=== PATIENT | female | born 1995 ===

== ENCOUNTER 2020-07-09 06:16 | Emergency (ER) | payer OTHER, SELFPAY ==
--- NOTE | 2020-07-09 | CT_ITS ---
EXAMINATION: CT OF THE ABDOMEN AND PELVIS WITH IV CONTRAST CLINICAL INFORMATION: Left lower quadrant pain COMPARISON: Previous CT April 2020 TECHNIQUE: Axial images through the chest, abdomen and pelvis following oral and 85 mL Omnipaque 350 intravenous contrast. Sagittal and coronal reconstructions on the technologist workstation were performed. Patient dose 100 1 mg/cm. This CT examination was performed using dose optimization techniques as appropriate, variously including the following: *Automated exposure control *Adjustment of mA and/or kV according to patient size (this includes techniques or standardized protocols for targeted exams where dose is matched to indication/reason for exam; i.e. extremities or head) *Use of iterative reconstruction technique FINDINGS: The lung bases are clear. The liver is slightly low in attenuation suggestive of fatty infiltration. No focal liver lesion. Normal gallbladder. No biliary duct dilatation. Normal spleen, pancreas and adrenal glands. High attenuation in the bilateral collecting systems likely representing excreted contrast from test injection. This lowers the sensitivity for detecting a stone. No definite stone seen. No hydronephrosis. Normal bladder. Normal uterus and ovaries. There is diverticulosis of the left colon. There is wall thickening of the left colon and stranding of the surrounding fat. This is slightly longer segment distribution and more proximal compared to recent exam from April 2020. There are small adjacent pericolic lymph nodes. No evidence of obstruction, perforation or abscess is seen. Small and large bowel is otherwise unremarkable. The appendix is unremarkable. Small retroperitoneal lymph nodes. No ascites. No hernia. Normal vascular structures. Unremarkable bone structures. IMPRESSION: Diverticulosis. Long segment wall thickening of the left colon and stranding of the surrounding fat and small pericolic lymph nodes. This probably represents left colon diverticulitis. Long segment distribution raises the question of colitis as well. No evidence of obstruction, perforation or abscess.
[2020-07-09 06:33] VITALS: BP 133/91; PULSE 98; RESP 18; TEMP 36.4; BMI 44.2
--- NOTE | 2020-07-09 06:55 | ED.ABDPAIN ---
HPI - Abdominal Pain General Chief Complaint: Abdominal Pain Stated Complaint: LOWER ABD PAIN Time Seen by Provider: 07/09/20 06:55 Source: patient Mode of arrival: ambulatory Limitations: no limitations History of Present Illness MD elicited complaint: abdominal pain Onset (ago): day(s) (last night) Pain Consistency: constant Location: LLQ and suprapubic Severity: moderate Quality: cramping Exacerbating factors: nothing Relieving factors: nothing Associated symptoms: denies other symptoms Related Data Previous Rx's Medication Instructions Recorded amoxicillin-pot clavulanate 1 tab PO Q12H #14 tab 07/09/20 [Augmentin] hydrocodone-acetaminophen 1 tab PO Q8H PRN #10 tab 07/09/20 ondansetron 4 mg PO Q8H PRN 5 Days #20 tab 07/09/20 Allergies Allergy/AdvReac Type Severity Reaction Status Date / Time No Known Allergies Allergy Unverified 06/25/20 16:35 [No Known Allergies*] Review of Systems Review of Systems Constitutional : No Weight loss, No Fever, No Chills ENT: no runny nose, no sore throat Eyes: No Eye Pain, No Swelling, No Redness Cardiovascular : No Chest Pain, No SOB, No Dyspnea on Exertion, No Orthopnea, No Edema, No Palpitations Respiratory : No Cough, No Sputum, No Wheezing, No Smoke Exposure, No Dyspnea Gastrointestinal : no Nausea, no Vomiting, no Diarrhea, positive abdominal Pain, No Hematochezia, No Melena Genitourinary : No Dysuria, No Urinary Frequency, No Hematuria, Musculoskeletal : No joint pain, No Myalgias, No Joint Swelling Skin : No Skin Lesions, No rash Neuro : No Weakness, No Numbness, No Dizziness, No Headache Psych : No Anxiety/Panic, No Depression Heme/Lymph: No Bruising, No Bleeding,No Lymphadenopathy Endocrine : No Polyuria, No Polydipsia Physical Exam Vital Signs and I&O and Narrative: Vital Signs and I&O: Vital Signs Temp 98.6 F 07/09/20 06:56 Pulse 81 07/09/20 08:03 Resp 16 07/09/20 08:03 BP 138/87 07/09/20 08:03 Pulse Ox 96 07/09/20 08:03 Intake & Output 07/08/20 07/09/20 07/09/20 18:59 06:59 18:59 Intake Total 1000 / 1000 Balance 1000 / 1000 Weight 113.398 kg Intake: Intake, IV Amoun t 1000 / 1000 0.9 % Sodium C hloride 1,000 ml 1000 / 1000 @ 999 mls/hr I VCONT .Q1H1M [facility] Rx#:[id number] Body Mass Index 44.2 Const: General: cooperative and healthy appearing; No in distress Nutritional Appearance: average body habitus Orientation/consciousness: oriented to person and oriented to time HENMT: Head: Yes normal to inspection Face and sinus: Yes normal facial exam Mouth: Normal oral and palatal mucosa present Eyes: Eyelids: Yes eyelids normal Pupils: Equal, round and reactive pupils present Neck: Neck: Yes normal visual inspection Resp: Effort & Inspection: normal respiratory effort Auscultation: clear to auscultation bilaterally Cardio: Rate: regular rate Rhythm: regular rhythm Peripheral pulses: Peripheral pulses 2+ throughout GI: Inspection: Yes normal to inspection Palpation (GI): Soft to palpation and Tenderness to palpation present (GI) in the LLQ and suprapubicly; with no rebound tenderness Skin: General skin exam: no rashes or lesions noted Neuro: General: oriented to person and oriented to time Cranial nerves: Yes Equal, round and reactive pupils present and Yes Bilaterally intact EOM present Motor exam (neuro): 5/5 motor strength present throughout Sensory Exam: Normal double simultaneous stimulation for sensation Extrem: General: Yes normal to inspection and Yes no pedal edema Psych: Appearance: grossly normal Mental Status: mental status grossly normal Speech and movement: Normal speech and movement present Course Course Hospital Course: not toxic, no vomiting she has mild diverticulitis can be managed as outpatient with PO antibiotics MDM - Abdominal Pain MDM Narrative Medical decision making narrative: pateint with LLQ and suprapubic pain since last night but no other associated GI symptoms will need labs, IVF, IV Toradol for pain, denies concern for , CT scan for mass/diverticulitis, dispo per results and improvement Lab Data Result diagrams: 07/09/20 07:31 07/09/20 07:31 Labs: Lab Results 07/09/20 07/09/20 07/09/20 Range/Units 07:20 07:31 07:31 WBC 11.8 H (4.8-10.8) X10*3/uL RBC 4.97 (4.20-5.50) X10*6/uL Hgb 12.9 (12.0-16.0) g/dl Hct 40.7 (37-47) % MCV 81.9 (80-98) fL MCH 26.0 L (27.0-33.0) pg MCHC 31.7 (31.0-35.0) g/dl RDW 14.3 (11.0-16.0) % Plt Count 355 (160-400) X10*3/uL MPV 9.8 (9.4-12.3) fL Immature Gran % (Auto) 0.3 (0.0-0.4) % Neut % (Auto) 68.2 (45-73) % Lymph % (Auto) 24.2 (20-40) % [place] % (Auto) 6.1 (2-11) % Eos % (Auto) 0.9 (0-4) % Baso % (Auto) 0.3 (0-2) % Neut # (Auto) 8.0 (2.0-8.3) X10*3/uL Lymph # (Auto) 2.8 (1.2-4.9) X10*3/uL [place] # (Auto) 0.7 (0.1-1.2) X10*3/uL Eos # (Auto) 0.1 (0.0-0.4) X10*3/uL Baso # (Auto) 0.0 (0.0-0.2) X10*3/uL Abs Immat Gran (auto) 0.04 H (0.00-0.03) X10*3/uL Absolute Nucleated RBC 0.000 (0.0-0.012) X10*3/uL Nucleated RBC % (auto) 0.0 (0.0-0.2) /100WBC Sodium 139 (135-145) mmol/L Potassium 4.2 (3.3-5.1) mmol/l Chloride 105 (96-108) mmol/L Carbon Dioxide 26 (22-29) mmol/L Anion Gap 12 (12-20) BUN 10 (9-16) mg/dL Creatinine 0.74 (0.5-1.4) mg/dL Estim Creat Clear Calc 142.1 Estimated GFR > 60 Random Glucose 101 (60-115) mg/dL Calcium 8.8 (8.4-10.2) mg/dL Total Bilirubin 0.2 (0.0-1.0) mg/dL Direct Bilirubin < 0.2 (0.0-0.5) mg/dL AST 18 (5-31) U/L ALT 20 (0-31) U/L Alkaline Phosphatase 104 (39-117) U/L Total Protein 7.0 (6.5-8.0) g/dL Albumin 3.9 (3.5-5.0) g/dL Lipase 23 (8-78) U/L Urine Color YELLOW Urine Appearance HAZY Urine pH 6.0 (5.0-8.0) Ur Specific [place] 1.025 (1.005-1.025) Urine Protein NEG (NEG-TRACE) MG/DL Urine Glucose (UA) NEG (NEG) MG/DL Urine Ketones NEG (NEG) MG/DL Urine Blood NEG (NEG) Urine Nitrite NEG (NEG) Ur Leukocyte Esterase NEG (NEG) Urine Test NEGATIVE (NEGATIVE) Discharge Plan Discharge Clinical Impression: Diverticulitis Patient Disposition: Home, Self-Care Prescriptions: New amoxicillin-pot clavulanate [Augmentin] 875-125 mg tablet 1 tab PO Q12H Qty: 14 RF: 0 ondansetron 4 mg tablet,disintegrating 4 mg PO Q8H PRN (Reason: nausea and vomiting) 5 Days Qty: 20 RF: 0 hydrocodone-acetaminophen 5-325 mg tablet 1 tab PO Q8H PRN (Reason: pain) Qty: 10 RF: 0 Referrals: Physician,Unknown [Primary Care Provider] - 2 days (you will need a colonoscopy in 4 to 6 weeks call your doctor) Stand Alone Forms: Work/School Release [facility] Past Medical History Attestation statement: The following information was validated with the patient. Medical History (Updated 07/09/20 @ 10:38 by Deb Barber DO) Diverticulitis No known health problems Social History Social History Smoking Status: Never smoker Smoked in Last 30 Days: No Use of substances other than those prescribed or required for medical reasons: No Advance Directives: No Advance Directives Information Provided: No
[2020-07-09 06:56] VITALS: BP 138/98; PULSE 92; RESP 18; TEMP 37; O2SAT 94
[2020-07-09] MEDS: 0.9 % Sodium Chloride 1,000 ML 999 ML IVCONT (07:34)
[2020-07-09 07:37] LABS: MANUAL DIFF FLAG NO
[2020-07-09 07:38] LABS: Basophils Percent Auto 0.3 % (0-2); Eosinophils Absolute Auto 0.1 X10*3/uL (0.0-0.4); Eosinophils Percent Auto 0.9 % (0-4); Hematocrit 40.7 % (37-47); Hemoglobin 12.9 g/dl (12.0-16.0); Imm Gran Abs Auto 0.04 X10*3/uL (0.00-0.03); Imm Gran Pct Auto 0.3 % (0.0-0.4); Lymphocytes Absolute Auto 2.8 X10*3/uL (1.2-4.9); Lymphocytes Percent Auto 24.2 % (20-40); Mean Corpuscular HGB Conc 31.7 g/dl (31.0-35.0); Mean Corpuscular Volume 81.9 fL (80-98); Mean Platelet Volume 9.8 fL (9.4-12.3); Monocytes Absolute Auto 0.7 X10*3/uL (0.1-1.2); Monocytes Percent Auto 6.1 % (2-11); Neutrophils Percent Auto 68.2 % (45-73); Platelet Count 355 X10*3/uL (160-400); Red Blood Count 4.97 X10*6/uL (4.20-5.50); Red Cell Distribution Width 14.3 % (11.0-16.0); White Blood Count 11.8 X10*3/uL (4.8-10.8)
[2020-07-09] MEDS: Ketorolac Tromethamine 30 MG/ML VIAL IVPUSH (07:41)
[2020-07-09 07:42] LABS: Glucose Urine UA NEG (NEG); Leukocyte Esterase Urine NEG (NEG); Nitrite Urine NEG (NEG); Specific Gravity - Urine 1.025 (1.005-1.025); Urine Blood NEG (NEG); Urine Ketones NEG (NEG); Urine Protein NEG (NEG-TRACE)
[2020-07-09] MEDS: ondansetron HCL 4 MG/2 ML VIAL IVPUSH (07:42)
[2020-07-09 07:46] LABS: Appearance Urine HAZY; Color Urine YELLOW
[2020-07-09 07:49] LABS: UPreg QC Valid YES; Urine Pregnancy NEGATIVE (NEGATIVE)
[2020-07-09 08:03] VITALS: BP 138/87; PULSE 81; RESP 16; O2SAT 96
[2020-07-09 08:05] LABS: Alanine Aminotransferase 20 U/L (0-31); Albumin Level 3.9 g/dL (3.5-5.0); Alkaline Phosphatase 104 U/L (39-117); Anion Gap 12 (12-20); Aspartate Amino Transferase 18 U/L (5-31); Bilirubin Direct < 0.2 mg/dL (0.0-0.5); Bilirubin Total 0.2 mg/dL (0.0-1.0); Blood Urea Nitrogen 10 mg/dL (9-16); Calcium 8.8 mg/dL (8.4-10.2); Carbon Dioxide 26 mmol/L (22-29); Chloride 105 mmol/L (96-108); Creatinine Clr Calc Pharmacy 142.1; Estimated Glomerular Filt Rate > 60; Glucose Random 101 mg/dL (60-115); Lipase 23 U/L (8-78); Potassium 4.2 mmol/l (3.3-5.1); Sodium 139 mmol/L (135-145)
--- NOTE | 2020-07-09 09:18 | PC.NURSE ---
pt ambulated to CT Scan with steady gait with low voltage technician.
[2020-07-09] MEDS: iohexoL 350 MG/ML 100 ML INFUS..BTL IV (10:26)
[2020-07-09 11:26] VITALS: BP 129/78; PULSE 94; O2SAT 97
== END 2020-07-09 11:40 | disposition home or self-care (01) ==
PROVIDERS: Emergency Provider Emergency Medicine
DX: K57.92 Diverticulitis of intestine, part unspecified, without perforation or abscess without bleeding (principal)
CPT/HCPCS: 36415; 74177; 80048; 80076; 81003; 81025; 83690; 85025; 96361; 96374; 96375; 99284

== ENCOUNTER 2021-07-30 12:21 | Inpatient (IN) | payer OTHER, SELFPAY ==
--- NOTE | ~2021-07-30 | CT_ITS ---
CT/CT abdomen pelvis w con IMPRESSION: Acute diverticulitis involving the distal descending and proximal sigmoid colon with large amount of inflammatory change seen within the mesentery with the appearance of phlegmon and no definite drainable abscess collection at this time. There is a small amount of free fluid seen about the abdomen and pelvis. EXAMINATION: CT ABDOMEN AND PELVIS WITH CONTRAST CLINICAL INFORMATION: Severe abdominal pain radiating to flanks with nausea. COMPARISON: July 09, 2020 and April 30, 2020 TECHNIQUE: Multidetector volumetric images were obtained from the superior aspect of the liver through the pubic symphysis following administration 85 mL of Omnipaque 350 intravenous contrast. Sagittal and coronal reformatted images were obtained on the technologist's workstation. Oral contrast: No This CT examination was performed using dose optimization techniques as appropriate, variously including the following: *Automated exposure control *Adjustment of mA and/or kV according to patient size (this includes techniques or standardized protocols for targeted exams where dose is matched to indication/reason for exam; i.e. extremities or head) *Use of iterative reconstruction technique DLP: 1002 mGy-cm FINDINGS: LUNG BASES: The visualized lung bases are unremarkable. No pleural or pericardial effusion. LIVER, GALLBLADDER, AND BILIARY TREE: There is some diminished density along the falciform ligament consistent with fatty infiltration. No focal mass or intrahepatic bile duct dilatation is seen. The gallbladder is unremarkable with no evidence of radiopaque gallstones, gallbladder wall thickening, or obvious pericholecystic inflammatory changes. PANCREAS: Unremarkable. SPLEEN: Unremarkable. ADRENAL GLANDS: Unremarkable. KIDNEYS AND URETERS: The kidneys are normal in size, shape, and attenuation. No calculi seen. There is prominence of the collecting systems left greater than right without hydroureter. No perinephric stranding. BLADDER: Unremarkable. GASTROINTESTINAL TRACT: No dilated loops of large or small bowel are evident. No free air is seen. There is small amount of free fluid seen within the pelvis. Small amount of free fluid is seen within the mid abdomen. The appendix is visualized and appears unremarkable. There is a region of disease within the sigmoid and distal descending colon with wall thickening and large amount of pericolonic stranding and indistinctness of the colonic wall in this region consistent with acute diverticulitis. There is a large amount of inflammation within the fat seen extending superiorly with the appearance of phlegmon involving multiple loops of small bowel and no definite drainable collection or air fluid collection. The inflammatory streaking is seen to extend throughout a large portion of the mesentery. ABDOMINAL WALL: No significant hernia is appreciated. LYMPH NODES: There are numerous nonenlarged mesenteric and periaortic lymph nodes present. VASCULAR: Unremarkable. PELVIC VISCERA: No abnormal mass. Small amount of free fluid. OSSEOUS STRUCTURES: Unremarkable.
[2021-07-30 14:42] VITALS: BP 149/90; PULSE 68; RESP 18; TEMP 36.6; O2SAT 98
--- NOTE | 2021-07-30 14:48 | ED.ABDPAIN ---
HPI - Abdominal Pain General Chief Complaint: Abdominal Pain Stated Complaint: abd & flank pain Time Seen by Provider: 07/30/21 14:40 Source: patient Mode of arrival: ambulatory Limitations: no limitations History of Present Illness HPI narrative: 26-year-old female with a history of diverticulosis, diverticulitis 07/2020, kidney stones who presents to the ER with acute onset of severe 9/10 sharp epigastric pain that radiates down into her lower abdomen and into her bilateral flanks. She reports his pain started around 630 this morning and has progressively gotten worse throughout the day. She is nauseous but has not vomited. She reports her last bowel movement was yesterday and was normal. She has had no fever or chills. She has no urinary symptoms. She denies chance of . She states this feels different than her prior episode of diverticulitis. MD elicited complaint: abdominal pain Pertinent past history: diverticulitis and kidney stones Onset (ago): hour(s) (9) Pain Consistency: constant Location: epigastric Severity: severe Pain scale (0-10): 9 Quality: sharp Radiation: LLQ and RLQ Migration to: periumbilical Exacerbating factors: nothing Relieving factors: nothing Context: history of similar episodes Associated symptoms: nausea Related Data Patient : No Home Medications Medication Instructions Recorded Confirmed levonorgestrel-ethinyl estradiol 1 tab PO BEDTIME 05/18/21 0.1 mg-20 mcg tablet (Sronyx) dicyclomine 10 mg capsule 1 cap PO BID PRN 07/30/21 Previous Rx's Medication Instructions Recorded ondansetron 4 mg disintegrating 4 mg PO Q8H PRN 5 Days #20 tab 07/09/20 tablet amoxicillin 875 mg-potassium 1 tab PO BID #20 tab 05/18/21 clavulanate 125 mg tablet (Augmentin) ibuprofen 600 mg tablet 600 mg PO Q8H PRN #10 tab 07/30/21 Allergies Allergy/AdvReac Type Severity Reaction Status Date / Time No Known Allergies Allergy Unverified 06/25/20 16:35 [No Known Allergies*] Review of Systems Review of Systems Constitutional: No Fever, No Chills ENT/Mouth: No sore throat, No Rhinorrhea, No Swallowing Difficulty Eyes: No Eye Pain, No Swelling, No Redness Cardiovascular: No Chest Pain, No SOB, No Orthopnea, No Edema Respiratory: No Cough, No Sputum, No Wheezing, No dyspnea Gastrointestinal: + Nausea, No Vomiting, No Diarrhea, + abdominal Pain, No Hematochezia, No Melena Genitourinary: No Dysuria, No Urinary Frequency, No Hematuria Musculoskeletal: No joint pain, No Myalgias Skin: No Skin Lesions, No rash Neuro: No Weakness, No Numbness, No Dizziness, No Headache Psych: No Anxiety/Panic, No Depression Heme/Lymph: No Bruising, No Lymphadenopathy Endocrine: No Polyuria, No Polydipsia Physical Exam Vital Signs: Vital Signs: Last Vital Signs Temp 98.8 F 07/30/21 17:58 Pulse 79 07/30/21 17:58 Resp 16 07/30/21 17:58 BP 124/78 07/30/21 17:58 Pulse Ox 99 07/30/21 17:58 Body Mass Index 42.5 Appearance: Alert. Oriented X3. Appears to be in pain Eyes: Pupils equal, round and reactive to light. ENT: Pharynx normal. Neck: Normal inspection. Neck supple. CVS: Normal heart rate and rhythm. Pulses normal. Respiratory: No respiratory distress. Breath sounds normal. Abdomen: Obese, soft with tenderness to epigastric area, periumbilical area and LLQ, +guarding, no rebound, decreased+BS x4 Skin: Skin warm and dry. Normal skin color. Normal skin turgor. No rashes. Extremities: No lower extremity edema. Neuro: Oriented X 3. No motor deficit. No sensory deficit. Course Course Course Narrative: 26-year-old female with history of diverticulitis and kidney stones presents to the ER with severe 9/10 sharp abdominal pain that radiates throughout her whole abdomen into her bilateral flanks. She is finally stable on arrival slightly hypertensive and appears to be in pain. She is nontoxic appearing and afebrile. Will proceed with checking lab workup, urinalysis, and get CT scan for further evaluation. IV fluids in IV morphine ordered as well as IV Zofran. Reevaluation(s) Reevaluation #1: But blood cell count 13.1. Her pain is significantly improved after [address] scan is pending at this time. Reevaluation #2: CT scan is showing acute diverticulitis and proximal sigmoid colon with large amount of inflammatory changes, consistent with appearance of phlegmon. No drainable abscess at this time. She has a small amount of free fluid in the abdomen and pelvis. Given the CT scan findings will plan to give a dose of IV antibiotics and have her admitted for further evaluation and management. Patient reports this is her 6th episode of diverticulitis. She had a colonoscopy in the past and has been seen by GI in [facility]. She report no one ever spoke to her about surgery or resection before. Will plan to admit. Patient agreeable with plan. Reevaluation #3: Dr. Pruitt from Surgery consulted - recommending NPO, IVF, IV abx. Elective outpatient colonoscopy and possible resection once better. Consultations Consultation #1: Surgery - Dr. Humphrey [facility] - Abdominal Pain Lab Data Result diagrams: 07/30/21 14:53 07/30/21 14:53 Labs: Lab Results 07/30/21 07/30/21 07/30/21 Range/Units 14:53 14:53 14:53 WBC 13.1 H (4.8-10.8) X10*3/uL RBC 4.97 (4.20-5.50) X10*6/uL Hgb 12.7 (12.0-16.0) g/dl Hct 40.2 (37-47) % MCV 80.9 (80-98) fL MCH 25.6 L (27.0-33.0) pg MCHC 31.6 (31.0-35.0) g/dl RDW 14.2 (11.0-16.0) % Plt Count 435 H (160-400) X10*3/uL MPV 9.9 (9.4-12.3) fL Immature Gran % (Auto) 0.3 (0.0-0.4) % Neut % (Auto) 78.7 H (45-73) % Lymph % (Auto) 16.4 L (20-40) % [place] % (Auto) 4.2 (2-11) % Eos % (Auto) 0.2 (0-4) % Baso % (Auto) 0.2 (0-2) % Lymph # (Auto) 2.2 (1.2-4.9) X10*3/uL [place] # (Auto) 0.6 (0.1-1.2) X10*3/uL Eos # (Auto) 0.0 (0.0-0.4) X10*3/uL Baso # (Auto) 0.0 (0.0-0.2) X10*3/uL Abs Immat Gran (auto) 0.04 H (0.00-0.03) X10*3/uL Absolute Neuts (auto) 10.3 H (2.0-8.3) X10*3/uL Absolute Nucleated RBC 0.000 (0.0-0.012) X10*3/uL Nucleated RBC % (auto) 0.0 (0.0-0.2) /100WBC Sodium 141 (135-145) mmol/L Potassium 4.0 (3.3-5.1) mmol/L Chloride 105 (96-108) mmol/L Carbon Dioxide 24 (22-29) mmol/L Anion Gap 16 (12-20) BUN 7 L (9-16) mg/dL Creatinine 0.78 (0.5-1.4) mg/dL Estim Creat Clear Calc TNP Estimated GFR > 60 Random Glucose 81 (60-115) mg/dL Lactic Acid 1.0 (0.5-2.0) mmol/L Calcium 9.2 (8.4-10.2) mg/dL Magnesium 1.8 (1.6-2.6) mg/dL Total Bilirubin 0.3 (0.0-1.0) mg/dL Direct Bilirubin < 0.2 (0.0-0.5) mg/dL AST 16 (5-31) U/L ALT 15 (0-31) U/L Alkaline Phosphatase 88 (39-117) U/L Total Protein 7.7 (6.5-8.0) g/dL Albumin 4.1 (3.5-5.0) g/dL Lipase 16 (8-78) U/L Urine Color Urine Appearance Urine pH (5.0-8.0) Ur Specific [place] (1.005-1.025) Urine Protein (NEG-TRACE) MG/DL Urine Glucose (UA) (NEG) MG/DL Urine Ketones (NEG) MG/DL Urine Blood (NEG) Urine Nitrite (NEG) Ur Leukocyte Esterase (NEG) Urine Test (NEGATIVE) COVID-19 (JESSIKA) (Negative) COVID-19 Clin Com 07/30/21 07/30/21 07/30/21 Range/Units 14:53 14:53 14:53 WBC (4.8-10.8) X10*3/uL RBC (4.20-5.50) X10*6/uL Hgb (12.0-16.0) g/dl Hct (37-47) % MCV (80-98) fL MCH (27.0-33.0) pg MCHC (31.0-35.0) g/dl RDW (11.0-16.0) % Plt Count (160-400) X10*3/uL MPV (9.4-12.3) fL Immature Gran % (Auto) (0.0-0.4) % Neut % (Auto) (45-73) % Lymph % (Auto) (20-40) % [place] % (Auto) (2-11) % Eos % (Auto) (0-4) % Baso % (Auto) (0-2) % Lymph # (Auto) (1.2-4.9) X10*3/uL [place] # (Auto) (0.1-1.2) X10*3/uL Eos # (Auto) (0.0-0.4) X10*3/uL Baso # (Auto) (0.0-0.2) X10*3/uL Abs Immat Gran (auto) (0.00-0.03) X10*3/uL Absolute Neuts (auto) (2.0-8.3) X10*3/uL Absolute Nucleated RBC (0.0-0.012) X10*3/uL Nucleated RBC % (auto) (0.0-0.2) /100WBC Sodium (135-145) mmol/L Potassium (3.3-5.1) mmol/L Chloride (96-108) mmol/L Carbon Dioxide (22-29) mmol/L Anion Gap (12-20) BUN (9-16) mg/dL Creatinine (0.5-1.4) mg/dL Estim Creat Clear Calc Estimated GFR Random Glucose (60-115) mg/dL Lactic Acid (0.5-2.0) mmol/L Calcium (8.4-10.2) mg/dL Magnesium (1.6-2.6) mg/dL Total Bilirubin (0.0-1.0) mg/dL Direct Bilirubin (0.0-0.5) mg/dL AST (5-31) U/L ALT (0-31) U/L Alkaline Phosphatase (39-117) U/L Total Protein (6.5-8.0) g/dL Albumin (3.5-5.0) g/dL Lipase (8-78) U/L Urine Color YELLOW Urine Appearance HAZY Urine pH 5.5 (5.0-8.0) Ur Specific [place] >= 1.030 H (1.005-1.025) Urine Protein NEG (NEG-TRACE) MG/DL Urine Glucose (UA) NEG (NEG) MG/DL Urine Ketones 15 (NEG) MG/DL Urine Blood NEG (NEG) Urine Nitrite NEG (NEG) Ur Leukocyte Esterase NEG (NEG) Urine Test NEGATIVE (NEGATIVE) COVID-19 (JESSIKA) Negative (Negative) COVID-19 Clin Com See Note Critical Care Time Critical Care Time Critical Care Time: Yes Total Critical Care Time: 38 Attestation: I have personally provided critical care time exclusive of time spent on separately billable procedures. Time includes review of lab data, radiology results, discussion with consultants, and monitoring for potential decompensation. Intervention performed as documented. Discharge Plan Discharge Clinical Impression: Diverticulitis Patient Disposition: Admitted As Inpatient [facility] Past Medical History Medical History (Updated 07/30/21 @ 17:27 by ELIZABETH Sarabia) Diverticulitis No known health problems Social History Social History Advance Directives: No Patient : No
[2021-07-30] MEDS: ondansetron HCL 4 MG/2 ML VIAL IVPUSH (14:59)
[2021-07-30] MEDS: 0.9 % Sodium Chloride 1,000 ML 999 ML IVCONT ×2 (14:59→17:55)
[2021-07-30] MEDS: Morphine Sulfate 4 MG/ML CARTRIDGE IVPUSH (15:00)
[2021-07-30 15:01] LABS: Basophils Percent Auto 0.2 % (0-2); Eosinophils Percent Auto 0.2 % (0-4); Hematocrit 40.2 % (37-47); Hemoglobin 12.7 g/dl (12.0-16.0); Imm Gran Abs Auto 0.04 X10*3/uL (0.00-0.03); Imm Gran Pct Auto 0.3 % (0.0-0.4); Lymphocytes Absolute Auto 2.2 X10*3/uL (1.2-4.9); Lymphocytes Percent Auto 16.4 % (20-40); MANUAL DIFF FLAG NO; Mean Corpuscular HGB Conc 31.6 g/dl (31.0-35.0); Mean Corpuscular Hemoglobin 25.6 pg (27.0-33.0); Mean Corpuscular Volume 80.9 fL (80-98); Mean Platelet Volume 9.9 fL (9.4-12.3); Monocytes Absolute Auto 0.6 X10*3/uL (0.1-1.2); Monocytes Percent Auto 4.2 % (2-11); Neutrophils Absolute Auto 10.3 X10*3/uL (2.0-8.3); Neutrophils Percent Auto 78.7 % (45-73); Platelet Count 435 X10*3/uL (160-400); Red Blood Count 4.97 X10*6/uL (4.20-5.50); Red Cell Distribution Width 14.2 % (11.0-16.0); White Blood Count 13.1 X10*3/uL (4.8-10.8)
[2021-07-30 15:02] LABS: Appearance Urine HAZY; Color Urine YELLOW; Glucose Urine UA NEG (NEG); Leukocyte Esterase Urine NEG (NEG); Nitrite Urine NEG (NEG); PH 5.5 (5.0-8.0); Specific Gravity - Urine >= 1.030 (1.005-1.025); Urine Blood NEG (NEG); Urine Ketones 15 MG/DL (NEG); Urine Protein NEG (NEG-TRACE)
[2021-07-30 15:03] LABS: UPreg QC Valid YES; Urine Pregnancy NEGATIVE (NEGATIVE)
[2021-07-30 15:16] LABS: COVID-19 Test Negative (Negative); IDNOW Serial# 9DD0AD1C
[2021-07-30 15:19] LABS: Alanine Aminotransferase 15 U/L (0-31); Albumin Level 4.1 g/dL (3.5-5.0); Alkaline Phosphatase 88 U/L (39-117); Anion Gap 16 (12-20); Aspartate Amino Transferase 16 U/L (5-31); Bilirubin Direct < 0.2 mg/dL (0.0-0.5); Bilirubin Total 0.3 mg/dL (0.0-1.0); Blood Urea Nitrogen 7 mg/dL (9-16); Calcium 9.2 mg/dL (8.4-10.2); Carbon Dioxide 24 mmol/L (22-29); Chloride 105 mmol/L (96-108); Estimated Glomerular Filt Rate > 60; Glucose Random 81 mg/dL (60-115); Lipase 16 U/L (8-78); Magnesium 1.8 mg/dL (1.6-2.6); Sodium 141 mmol/L (135-145); Total Protein 7.7 g/dL (6.5-8.0)
[2021-07-30] MEDS: iohexoL 350 MG/ML 100 ML INFUS..BTL IV (16:01)
[2021-07-30 17:41] VITALS: BMI 42.5
[2021-07-30] MEDS: metroNIDAZOLE/NS 500 MG/100 ML PIGGYBACK 100 MG IV (17:53)
[2021-07-30 17:58] VITALS: BP 124/78; PULSE 79; RESP 16; TEMP 37.1; O2SAT 99
--- NOTE | 2021-07-30 18:03 | P.HPHOSP_ITS ---
History of Present Illness Date of Service: 07/30/21 Attending physician on admission: Clem Armendariz Chief Complaint: abd pain 26-year-old female of diverticulosis, who has multiple episode of diverticulitis in past 1 and half year at least 5-6 time-coming to the hospital because of abdominal pain today, also has nausea. She says that the last episode of diverticulitis was 2-3 weeks back when she called her PCP and was given p.o. antibiotic outpatient and she felt better. This time she is having significant pain and she end the hospital. In the emergency room patient was given, morphine levaquin,flagyl and subsequently ED physician discussed the case with surgery and recommended to admit patient for IV antibiotics and surgical evaluation in the morning. Denies any new complaint of chest pain or shortness of breath or fever or chills or nausea or vomiting Denies any cough Denies any weakness or numbness. Labs imaging reviewed: Patient has WBC count of 13.1, nofever or tachypnea Renal function electrolytes seems normal, LFTs also normal, normal lactic acid. CT abdomen: Shows distal descending/proximal sigmoid colon diverticulitis/phlegmon appearance. No free air or drainable abscess at present. Social history: Denies any smoking, recreation drug use or alcohol use. Review of Systems Review of Systems: As above. Yes all other systems are reviewed and are negative [facility] Medical History Diverticulitis No known health problems Pertinent family history: Her father has hypertension, no history of div erticulitis in the family. Social History Advance Directives: No Patient : No Meds Allergies Allergy/AdvReac Type Severity Reaction Status Date / Time No Known Allergies Allergy Unverified 06/25/20 16:35 [No Known Allergies*] Active Medications: Current Medications Levofloxacin (Levaquin) 750 mg in 150 mls @ 100 mls/hr IV ONCE ONE Stop: 07/30/21 19:07 Metronidazole (Flagyl) 500 mg in 100 mls @ 100 mls/hr IV ONCE ONE Stop: 07/30/21 18:37 Last Admin: 07/30/21 17:53 Dose: 100 mls/hr Documented by: Sodium Chloride (Ns) 1,000 mls @ 999 mls/hr IVCONT .Q1H1M [facility] Stop: 07/30/21 18:45 Last Admin: 07/30/21 17:55 Dose: 999 mls/hr Documented by: Levofloxacin (Levaquin) 750 mg in 150 mls @ 100 mls/hr IV Q24H [facility] Metronidazole (Flagyl) 500 mg in 100 mls @ 100 mls/hr IV Q8H [facility] Pharmacy Consult (Consult Rx Perform Med Rec) 1 each MISCELLANE ONCE PRN PRN Reason: Consult order Sodium Chloride (0.9 % Sodium Chloride Flush 3 Ml Syringe) 3 ml IVFLUSH QSHIFT [facility] Home Medications Medication Instructions Recorded Confirmed Last Taken Type levonorgestrel-ethinyl estradiol 1 tab PO BEDTIME 05/18/21 07/30/21 07/29/21 History 0.1 mg-20 mcg tablet (Sronyx) dicyclomine 10 mg capsule 1 cap PO BID PRN 07/30/21 07/30/21 Unknown History psyllium husk 0.52 gram capsule 3.4 g PO DAILY 07/30/21 07/30/21 Unknown History (Fiber Laxative (psyllium husk)) Physical Exam Vital Signs and Narrative: Vital Signs: Last Vital Signs Temp 98.8 F 07/30/21 17:58 Pulse 79 07/30/21 17:58 Resp 16 07/30/21 17:58 BP 124/78 07/30/21 17:58 Pulse Ox 99 07/30/21 17:58 Body Mass Index 42.5 Physical exam: Appearance: Alert.? Oriented X3.? not in distress.? Eyes: Pupils equal, round and reactive to light.? Sclera nonicteric.? ENT: Pharynx normal.? Moist mucous membranes. cvs: rrr, [id number] , no murmur res: clear to auscultation ,no rhonchii or wheezing abd: no rebound or guarding , left lower quadrent tenderness , bs present. ext pulses present , no cyanosis ,Gait well balanced well coordinated. neuro: axo3 , nonfocal. Results Labs CBC and Chem 7: 07/30/21 14:53 07/30/21 14:53 Labs: Laboratory Results - last 24 hr 07/30/21 07/30/21 07/30/21 14:53 14:53 14:53 MCV 80.9 MCH 25.6 L MCHC 31.6 RDW 14.2 Plt Count 435 H MPV 9.9 Immature Gran % (Auto) 0.3 Neut % (Auto) 78.7 H Lymph % (Auto) 16.4 L [place] % (Auto) 4.2 Eos % (Auto) 0.2 Baso % (Auto) 0.2 Lymph # (Auto) 2.2 [place] # (Auto) 0.6 Eos # (Auto) 0.0 Baso # (Auto) 0.0 Abs Immat Gran (auto) 0.04 H Absolute Neuts (auto) 10.3 H Absolute Nucleated RBC 0.000 Nucleated RBC % (auto) 0.0 Anion Gap 16 Estim Creat Clear Calc TNP Estimated GFR > 60 Random Glucose 81 Lactic Acid 1.0 Calcium 9.2 Magnesium 1.8 Total Bilirubin 0.3 Direct Bilirubin < 0.2 AST 16 ALT 15 Alkaline Phosphatase 88 Total Protein 7.7 Albumin 4.1 Lipase 16 Urine Color Urine Appearance Urine pH Ur Specific [place] Urine Protein Urine Glucose (UA) Urine Ketones Urine Blood Urine Nitrite Ur Leukocyte Esterase Urine Test COVID-19 (JESSIKA) COVID-19 Clin Com 07/30/21 07/30/21 07/30/21 14:53 14:53 14:53 MCV MCH MCHC RDW Plt Count MPV Immature Gran % (Auto) Neut % (Auto) Lymph % (Auto) [place] % (Auto) Eos % (Auto) Baso % (Auto) Lymph # (Auto) [place] # (Auto) Eos # (Auto) Baso # (Auto) Abs Immat Gran (auto) Absolute Neuts (auto) Absolute Nucleated RBC Nucleated RBC % (auto) Anion Gap Estim Creat Clear Calc Estimated GFR Random Glucose Lactic Acid Calcium Magnesium Total Bilirubin Direct Bilirubin AST ALT Alkaline Phosphatase Total Protein Albumin Lipase Urine Color YELLOW Urine Appearance HAZY Urine pH 5.5 Ur Specific [place] >= 1.030 H Urine Protein NEG Urine Glucose (UA) NEG Urine Ketones 15 Urine Blood NEG Urine Nitrite NEG Ur Leukocyte Esterase NEG Urine Test NEGATIVE COVID-19 (JESSIKA) Negative COVID-19 Clin Com See Note Imaging Radiologist's Impressions: Impressions Abdomen/Pelvis CT 07/30/21 14:47 IMPRESSION: Acute diverticulitis involving the distal descending and proximal sigmoid colon with large amount of inflammatory change seen within the mesentery with the appearance of phlegmon and no definite drainable abscess collection at this time. There is a small amount of free fluid seen about the abdomen and pelvis. Assessment and Plan (1) Diverticulitis: Status: Acute (2) Phlegmon: Status: Acute (3) Morbid obesity: Status: Acute 1. Acute diverticulitis/phlegmon NPO, IV hydration, bowel rest, IV Levaquin and Flagyl day 1 Surgery evaluation 2. Morbid obesity: Encouraged to lose weight and consider outpatient bariatric evaluation. DVT prophylaxis: SubQ Lovenox. Patient condition discussed with patient in detail length including acute diverticulitis and phlegmon situation , use of IV antibiotic and hydration and bowel rest at present as well as morbid obesity and code status: Total time spent 70 minutes Quality Stroke Does the patient have a stroke diagnosis?: No VTE Prior VTE?: No VTE Risk Level:: Medical - moderate - high VTE Device Contraindication: N/A - Device Ordered VTE Drug Contraindication: N/A - Med Ordered
--- NOTE | 2021-07-30 18:12 | PHA.MEDREC ---
Pharmacy Consult ? Medication Reconciliation Pharmacy has completed the medication reconciliation.
[2021-07-30] MEDS: Enoxaparin Sodium 40 MG/0.4 ML SYRINGE SUBCUT (19:15)
[2021-07-30] MEDS: levoFLOXacin/D5W 750 MG/150 ML PIGGYBACK 100 MG IV (19:15)
[2021-07-30] MEDS: Lactated Ringers 1,000 ML 80 ML IVCONT (19:16)
--- NOTE | 2021-07-30 20:32 | MHC.CM.PN ---
CM met with admitted patient with bed assignment 380. A&Ox3. Independent. Lives with her parents. Fully vaccinated with Pfizer. No HCP on file. HCP reviewed, completed and signed. Copies given and uploaded into [employer] and [facility] [employer]. HCP/mother Isis Coates ([phone]). D/C plan is home without services. Transportation home by parents. CM to follow for d/c needs.
[2021-07-30 20:34] VITALS: BP 141/84; PULSE 87; RESP 18; TEMP 36.6; O2SAT 94
[2021-07-30 23:44] VITALS: BP 133/71; PULSE 82; RESP 16; TEMP 36.4; O2SAT 96
[2021-07-31 03:20] VITALS: BP 134/82; PULSE 73; RESP 18; TEMP 37.1; O2SAT 92
[2021-07-31] MEDS: Morphine Sulfate 2 MG/ML CARTRIDGE IVPUSH ×2 (03:24→12:55)
[2021-07-31] MEDS: metroNIDAZOLE/NS 500 MG/100 ML PIGGYBACK 100 MG IV ×3 (03:24→18:06)
[2021-07-31 06:15] LABS: Hematocrit 36.5 % (37-47); Hemoglobin 11.5 g/dl (12.0-16.0); Mean Corpuscular HGB Conc 31.5 g/dl (31.0-35.0); Mean Corpuscular Hemoglobin 25.3 pg (27.0-33.0); Mean Corpuscular Volume 80.2 fL (80-98); Platelet Count 372 X10*3/uL (160-400); Red Blood Count 4.55 X10*6/uL (4.20-5.50); Red Cell Distribution Width 14.1 % (11.0-16.0); White Blood Count 9.7 X10*3/uL (4.8-10.8)
[2021-07-31] MEDS: Lactated Ringers 1,000 ML 80 ML IVCONT (06:29)
[2021-07-31 06:59] LABS: Anion Gap 11 (12-20); Blood Urea Nitrogen 6 mg/dL (9-16); Calcium 8.9 mg/dL (8.4-10.2); Carbon Dioxide 26 mmol/L (22-29); Chloride 103 mmol/L (96-108); Creatinine Clr Calc Pharmacy 137.5; Estimated Glomerular Filt Rate > 60; Glucose Random 78 mg/dL (60-115); Potassium 3.8 mmol/L (3.3-5.1); Sodium 136 mmol/L (135-145)
[2021-07-31 07:47] VITALS: BP 118/68; PULSE 94; RESP 17; TEMP 36.7; O2SAT 98
[2021-07-31] MEDS: Enoxaparin Sodium 40 MG/0.4 ML SYRINGE SUBCUT (09:34)
--- NOTE | 2021-07-31 10:03 | HO.PM.IMPN ---
Subjective Subjective Date of Service: 07/31/21 Interval History: Diverticulitis Review of Systems abd pain seems slightly improving Denies any new complaint of chest pain or shortness of breath or fever or chills or nausea or vomiting Denies any cough Denies any weakness or numbness. Physical Exam Vital Signs: Vital Signs: Last Vital Signs Temp 98.1 F 07/31/21 07:47 Pulse 94 07/31/21 07:47 Resp 17 07/31/21 07:47 BP 118/68 07/31/21 07:47 Pulse Ox 98 07/31/21 07:47 Body Mass Index 42.5 Appearance: Alert.? Oriented X3.? not in distress.? Eyes: Pupils equal, round and reactive to light.? Sclera nonicteric.? ENT: Pharynx normal.? Moist mucous membranes. cvs: rrr, [id number] , no murmur res: clear to auscultation ,no rhonchii or wheezing abd: no rebound or guarding , left lower quadrent tenderness , bs present. ext pulses present , no cyanosis ,Gait well balanced well coordinated. neuro: axo3 , nonfocal. Objective Data Active Medications Enoxaparin Sodium (Enoxaparin Sodium 40 Mg/0.4 Ml Syringe) 40 mg SUBCUT DAILY [facility] Last Admin: 07/31/21 09:34 Dose: 40 mg Documented by: COTEMA Levofloxacin (Levaquin) 750 mg in 150 mls @ 100 mls/hr IV Q24H [facility] Metronidazole (Flagyl) 500 mg in 100 mls @ 100 mls/hr IV Q8H [facility] Last Admin: 07/31/21 09:35 Dose: 100 mls/hr Documented by: COTEMA Lactated Ringer's (Lr) 1,000 mls @ 80 mls/hr IVCONT .[id number] [facility] Last Admin: 07/31/21 06:29 Dose: 80 mls/hr Documented by: TRI Morphine Sulfate (Morphine Sulfate 2 Mg/Ml Cartridge) 2 mg IVPUSH Q4H PRN; Protocol PRN Reason: Pain, Mild (Pain Scale 1-3) Last Admin: 07/31/21 03:24 Dose: 2 mg Documented by: TRI Pharmacy Consult (Consult Rx Perform Med Rec) 1 each MISCELLANE ONCE PRN PRN Reason: Consult order Sodium Chloride (0.9 % Sodium Chloride Flush 3 Ml Syringe) 3 ml IVFLUSH QSHIFT [facility] Last Admin: 07/31/21 07:07 Dose: Not Given Documented by: VELMA Non-Admin Reason: IV Running Labs CBC & Chem 7: 07/31/21 06:02 07/31/21 06:02 Labs: Laboratory Results - last 24 hr 07/30/21 07/30/21 07/30/21 14:53 14:53 14:53 MCV 80.9 MCH 25.6 L MCHC 31.6 RDW 14.2 Plt Count 435 H MPV 9.9 Immature Gran % (Auto) 0.3 Neut % (Auto) 78.7 H Lymph % (Auto) 16.4 L [place] % (Auto) 4.2 Eos % (Auto) 0.2 Baso % (Auto) 0.2 Lymph # (Auto) 2.2 [place] # (Auto) 0.6 Eos # (Auto) 0.0 Baso # (Auto) 0.0 Abs Immat Gran (auto) 0.04 H Absolute Neuts (auto) 10.3 H Absolute Nucleated RBC 0.000 Nucleated RBC % (auto) 0.0 Anion Gap 16 Estim Creat Clear Calc TNP Estimated GFR > 60 Random Glucose 81 Lactic Acid 1.0 Calcium 9.2 Magnesium 1.8 Total Bilirubin 0.3 Direct Bilirubin < 0.2 AST 16 ALT 15 Alkaline Phosphatase 88 Total Protein 7.7 Albumin 4.1 Lipase 16 Urine Color Urine Appearance Urine pH Ur Specific [place] Urine Protein Urine Glucose (UA) Urine Ketones Urine Blood Urine Nitrite Ur Leukocyte Esterase Urine Test COVID-19 (JESSIKA) COVID-19 Clin Com 07/30/21 07/30/21 07/30/21 14:53 14:53 14:53 MCV MCH MCHC RDW Plt Count MPV Immature Gran % (Auto) Neut % (Auto) Lymph % (Auto) [place] % (Auto) Eos % (Auto) Baso % (Auto) Lymph # (Auto) [place] # (Auto) Eos # (Auto) Baso # (Auto) Abs Immat Gran (auto) Absolute Neuts (auto) Absolute Nucleated RBC Nucleated RBC % (auto) Anion Gap Estim Creat Clear Calc Estimated GFR Random Glucose Lactic Acid Calcium Magnesium Total Bilirubin Direct Bilirubin AST ALT Alkaline Phosphatase Total Protein Albumin Lipase Urine Color YELLOW Urine Appearance HAZY Urine pH 5.5 Ur Specific [place] >= 1.030 H Urine Protein NEG Urine Glucose (UA) NEG Urine Ketones 15 Urine Blood NEG Urine Nitrite NEG Ur Leukocyte Esterase NEG Urine Test NEGATIVE COVID-19 (JESSIKA) Negative COVID-19 Clin Com See Note 07/31/21 07/31/21 06:02 06:02 MCV 80.2 MCH 25.3 L MCHC 31.5 RDW 14.1 Plt Count 372 MPV 10.0 Immature Gran % (Auto) Neut % (Auto) Lymph % (Auto) [place] % (Auto) Eos % (Auto) Baso % (Auto) Lymph # (Auto) [place] # (Auto) Eos # (Auto) Baso # (Auto) Abs Immat Gran (auto) Absolute Neuts (auto) Absolute Nucleated RBC 0.000 Nucleated RBC % (auto) 0.0 Anion Gap 11 L Estim Creat Clear Calc 137.5 Estimated GFR > 60 Random Glucose 78 Lactic Acid Calcium 8.9 Magnesium Total Bilirubin Direct Bilirubin AST ALT Alkaline Phosphatase Total Protein Albumin Lipase Urine Color Urine Appearance Urine pH Ur Specific [place] Urine Protein Urine Glucose (UA) Urine Ketones Urine Blood Urine Nitrite Ur Leukocyte Esterase Urine Test COVID-19 (JESSIKA) COVID-19 Clin Com Assessment and Plan (1) Diverticulitis: Status: Acute (2) Phlegmon: Status: Acute (3) Morbid obesity: Status: Acute Assessment and Plan: ?1. Acute diverticulitis/phlegmon NPO, IV hydration, try to add clears, IV Levaquin and Flagyl day 2, iv morhine for pain control(moniter for sedation/respiratory issues). Surgery evaluation 2. Morbid obesity:? Encouraged to lose weight and consider outpatient bariatric evaluation. DVT prophylaxis:? SubQ Lovenox. Quality Stroke Does the patient have a stroke diagnosis?: No VTE Prior VTE?: No VTE Risk Level:: Medical - moderate - high VTE Device Contraindication: N/A - Device Ordered VTE Drug Contraindication: N/A - Med Ordered
[2021-07-31 11:39] VITALS: BP 125/71; PULSE 83; RESP 17; TEMP 36.5; O2SAT 99
--- NOTE | 2021-07-31 13:31 | PM.CNGS ---
History of Present Illness Consult details Consult date: 07/31/21 Reason for consult: abdominal pain Requesting physician: Clem Armendariz Narrative: The pt is a 26 year old female admitted with abdominal pain and diverticulitis with large phlegmon in the sigmoid left colon area. she has had numerous attacks in the last year and last year had a a CT scan which supported that diagnosis as well. She says she had a colonoscopy earlier this year maybe at [facility]. she denies being told she has crohsn or UC no family history. she has been trying to stay regular and not be constipated and doesnt think this has been a problem recently. Review of Systems Review of Systems: Yes all other systems are reviewed and are negative PMFSH Past Medical History Medical History Diverticulitis No known health problems Functional capacity: independent ambulation Patient : No Family History Pertinent family history: no IBD or diverticulosis Social History Social History Household Members: Family Housing: House Do you presently have visiting nurse or other home services: No Patient Tobacco Use Status: Never used Tobacco service: No Current occupational status: employed Meds Allergies Allergy/AdvReac Type Severity Reaction Status Date / Time No Known Allergies Allergy Unverified 06/25/20 16:35 [No Known Allergies*] Active Medications: Current Medications Enoxaparin Sodium (Enoxaparin Sodium 40 Mg/0.4 Ml Syringe) 40 mg SUBCUT DAILY [facility] Last Admin: 07/31/21 09:34 Dose: 40 mg Documented by: Levofloxacin (Levaquin) 750 mg in 150 mls @ 100 mls/hr IV Q24H [facility] Metronidazole (Flagyl) 500 mg in 100 mls @ 100 mls/hr IV Q8H [facility] Last Infusion: 07/31/21 10:38 Dose: Infused Documented by: Lactated Ringer's (Lr) 1,000 mls @ 80 mls/hr IVCONT .[id number] [facility] Last Admin: 07/31/21 06:29 Dose: 80 mls/hr Documented by: Morphine Sulfate (Morphine Sulfate 2 Mg/Ml Cartridge) 2 mg IVPUSH Q4H PRN; Protocol PRN Reason: Pain, Mild (Pain Scale 1-3) Last Admin: 07/31/21 12:55 Dose: 2 mg Documented by: Pharmacy Consult (Consult Rx Perform Med Rec) 1 each MISCELLANE ONCE PRN PRN Reason: Consult order Sodium Chloride (0.9 % Sodium Chloride Flush 3 Ml Syringe) 3 ml IVFLUSH QSHIFT [facility] Last Admin: 07/31/21 07:07 Dose: Not Given Documented by: Home Medications Medication Instructions Recorded Confirmed Last Taken Type levonorgestrel-ethinyl estradiol 1 tab PO BEDTIME 05/18/21 07/30/21 07/29/21 History 0.1 mg-20 mcg tablet (Sronyx) dicyclomine 10 mg capsule 1 cap PO BID PRN 07/30/21 07/30/21 Unknown History psyllium husk 0.52 gram capsule 3.4 g PO DAILY 07/30/21 07/30/21 Unknown History (Fiber Laxative (psyllium husk)) Physical Exam Vital Signs: Vital Signs: Last Vital Signs Temp 97.7 F 07/31/21 11:39 Pulse 83 07/31/21 11:39 Resp 17 07/31/21 11:39 BP 125/71 07/31/21 11:39 Pulse Ox 99 07/31/21 11:39 Body Mass Index 42.5 Const: General: cooperative, healthy appearing, comfortable and no acute distress HENMT: Head: Yes normal to inspection Resp: Effort & Inspection: normal respiratory effort and able to speak in complete sentences Cardio: Rate: regular rate Rhythm: regular rhythm GI: Other: soft tender right side mid abdomen to lower abdomen with some guarding but no peritoneal signs. ok bowel sounds Results Labs Result diagrams: 07/31/21 06:02 07/31/21 06:02 Labs: Abnormal lab results 07/30/21 07/30/21 07/30/21 Range/Units 14:53 14:53 14:53 WBC 13.1 H (4.8-10.8) X10*3/uL Hgb (12.0-16.0) g/dl Hct (37-47) % MCH 25.6 L (27.0-33.0) pg Plt Count 435 H (160-400) X10*3/uL Neut % (Auto) 78.7 H (45-73) % Lymph % (Auto) 16.4 L (20-40) % Abs Immat Gran (auto) 0.04 H (0.00-0.03) X10*3/uL Absolute Neuts (auto) 10.3 H (2.0-8.3) X10*3/uL Anion Gap (12-20) BUN 7 L (9-16) mg/dL Ur Specific [place] >= 1.030 H (1.005-1.025) 07/31/21 07/31/21 Range/Units 06:02 06:02 WBC (4.8-10.8) X10*3/uL Hgb 11.5 L (12.0-16.0) g/dl Hct 36.5 L (37-47) % MCH 25.3 L (27.0-33.0) pg Plt Count (160-400) X10*3/uL Neut % (Auto) (45-73) % Lymph % (Auto) (20-40) % Abs Immat Gran (auto) (0.00-0.03) X10*3/uL Absolute Neuts (auto) (2.0-8.3) X10*3/uL Anion Gap 11 L (12-20) BUN 6 L (9-16) mg/dL Ur Specific [place] (1.005-1.025) Short CBC 07/30/21 07/31/21 Range/Units 14:53 06:02 WBC 13.1 H 9.7 (4.8-10.8) X10*3/uL Hgb 12.7 11.5 L (12.0-16.0) g/dl Hct 40.2 36.5 L (37-47) % Plt Count 435 H 372 (160-400) X10*3/uL BMP 07/30/21 07/31/21 14:53 06:02 Sodium 141 136 Potassium 4.0 3.8 Chloride 105 103 Carbon Dioxide 24 26 BUN 7 L 6 L Creatinine 0.78 0.74 Calcium 9.2 8.9 Liver Function 07/30/21 Range/Units 14:53 Total Bilirubin 0.3 (0.0-1.0) mg/dL Direct Bilirubin < 0.2 (0.0-0.5) mg/dL AST 16 (5-31) U/L ALT 15 (0-31) U/L Alkaline Phosphatase 88 (39-117) U/L Albumin 4.1 (3.5-5.0) g/dL Urine 07/30/21 07/30/21 Range/Units 14:53 14:53 Urine Color YELLOW Urine Appearance HAZY Urine pH 5.5 (5.0-8.0) Ur Specific [place] >= 1.030 H (1.005-1.025) Urine Protein NEG (NEG-TRACE) MG/DL Urine Glucose (UA) NEG (NEG) MG/DL Urine Test NEGATIVE (NEGATIVE) All other labs normal. Assessment and Plan (1) Diverticulitis: Status: Acute 26 year old female admitted with left sided diverticulitis with large mesenteric phlegmon component, no perforation - stable and improving. admitted and wbc now normal and less tender. ? is this simply diverticulitis disease - pt is young to have it vs something like IBD. Will follow up on the Cscope results and consider GI consult. if it is tics and the same area reoccurring may benefit from surgical resection . would be best to get over the acute issue and then do elective resection in the future. agree with npo, ice chips and iv antibx and then slow advancement. will follow along Procedures Date of Service Date of Service: 07/31/21
[2021-07-31 15:35] VITALS: BP 129/71; PULSE 85; RESP 18; TEMP 37; O2SAT 93
[2021-07-31 19:25] VITALS: BP 120/81; PULSE 86; RESP 18; TEMP 36.8; O2SAT 94
[2021-07-31] MEDS: levoFLOXacin/D5W 750 MG/150 ML PIGGYBACK 100 MG IV (19:49)
[2021-07-31 23:26] VITALS: BP 127/60; PULSE 82; RESP 20; TEMP 36.9; O2SAT 97
[2021-08-01] VITALS (7 sets, daily range): BP systolic 118–148; BP diastolic 61–80; PULSE 61–79; RESP 16–19; TEMP 36–36.9; O2SAT 94–100
[2021-08-01] MEDS: metroNIDAZOLE/NS 500 MG/100 ML PIGGYBACK 100 MG IV ×3 (03:29→17:40)
[2021-08-01] MEDS: Lactated Ringers 1,000 ML 80 ML IVCONT ×2 (03:32→18:38)
[2021-08-01] MEDS: Enoxaparin Sodium 40 MG/0.4 ML SYRINGE SUBCUT (09:20)
--- NOTE | 2021-08-01 11:36 | P.PNIM_ITS ---
Subjective Subjective Date of Service: 08/01/21 Interval History: Diverticulitis Review of Systems abd pain seems slowly improving Denies any new complaint of chest pain or shortness of breath or fever or chills or nausea or vomitin or cough Denies any weakness or numbness. Physical Exam Vital Signs: Vital Signs: Last Vital Signs Temp 98.5 F 08/01/21 07:25 Pulse 64 08/01/21 07:25 Resp 18 08/01/21 07:25 BP 118/65 08/01/21 07:25 Pulse Ox 94 08/01/21 07:25 Body Mass Index 42.5 Alert.? Oriented X3.? not in distress.? Eyes: Pupils equal, round and reactive to light.? Sclera nonicteric.? ENT: Pharynx normal.? Moist mucous membranes. cvs: rrr, [id number] , no murmur res: clear to auscultation ,no rhonchii or wheezing abd: no rebound or guarding , left lower quadrent tenderness seems improving in comparion to yesterday , bs present. ext pulses present , no cyanosis ,Gait well balanced well coordinated. neuro: axo3 , nonfoca Objective Data Active Medications Enoxaparin Sodium (Enoxaparin Sodium 40 Mg/0.4 Ml Syringe) 40 mg SUBCUT DAILY [facility] Last Admin: 08/01/21 09:20 Dose: 40 mg Documented by: COTEMA Levofloxacin (Levaquin) 750 mg in 150 mls @ 100 mls/hr IV Q24H [facility] Last Infusion: 07/31/21 22:13 Dose: 0 mls/hr Documented by: TRI Metronidazole (Flagyl) 500 mg in 100 mls @ 100 mls/hr IV Q8H [facility] Last Infusion: 08/01/21 10:31 Dose: 0 mls/hr Documented by: COTEMA Lactated Ringer's (Lr) 1,000 mls @ 80 mls/hr IVCONT .[id number] [facility] Last Admin: 08/01/21 07:09 Dose: Not Given Documented by: COTEMA Non-Admin Reason: IV Running Morphine Sulfate (Morphine Sulfate 2 Mg/Ml Cartridge) 2 mg IVPUSH Q4H PRN; Protocol PRN Reason: Pain, Mild (Pain Scale 1-3) Last Admin: 07/31/21 12:55 Dose: 2 mg Documented by: DRAGAN Pharmacy Consult (Consult Rx Perform Med Rec) 1 each MISCELLANE ONCE PRN PRN Reason: Consult order Sodium Chloride (0.9 % Sodium Chloride Flush 3 Ml Syringe) 3 ml IVFLUSH QSHIFT [facility] Last Admin: 08/01/21 07:09 Dose: Not Given Documented by: VELMA Non-Admin Reason: IV Running Labs CBC & Chem 7: 07/31/21 06:02 07/31/21 06:02 Microbiology Microbiology Results: Microbiology 07/30/21 17:50 Blood Culture - Preliminary Blood - Venous No growth after 24 hours. 07/30/21 17:50 Blood Culture - Preliminary Blood - Venous No growth after 24 hours. Assessment and Plan (1) Phlegmon: Status: Acute (2) Diverticulitis: Status: Acute (3) Morbid obesity: Status: Acute Assessment and Plan: 1. Acute diverticulitis/phlegmon improving slowly NPO, IV hydration, IV Levaquin and Flagyl day 3, iv morhine for pain control(moniter for sedation/respiratory issues). Surgery evaluation noted -medical records contacted for [facility] for previous admits. gi eval also added 2. Morbid obesity:? Encouraged to lose weight and consider outpatient bariatric evaluation. DVT prophylaxis:? SubQ Lovenox. Quality Stroke Does the patient have a stroke diagnosis?: No VTE Prior VTE?: No VTE Risk Level:: Medical - moderate - high VTE Device Contraindication: N/A - Device Ordered VTE Drug Contraindication: N/A - Med Ordered
--- NOTE | 2021-08-01 14:07 | PM.PNGS ---
Subjective Subjective Date of Service: 08/01/21 Interval history: feels better less abdo pain no nausea or vomiting hungry Physical Exam Vital Signs: Vital Signs: Last Vital Signs Temp 97.9 F 08/01/21 12:00 Pulse 79 08/01/21 12:00 Resp 16 08/01/21 12:00 BP 128/80 08/01/21 12:00 Pulse Ox 100 08/01/21 12:00 Body Mass Index 42.5 GI: Other: soft less tender left side no guarding or rebound or peritoneal signs Procedures Date of Service Date of Service: 08/01/21 Progress Note: A&P Assessment and plan (1) Diverticulitis: Status: Acute Assessment and Plan: 26 year old female with multiple episodes of diverticulitis and had cscope in [facility] earlier this year with dx - just calderon diverticulosis. litis episodes seem to always be on the left side. now with admission with sig stranding and mesenteric involvement sigmoid and left colon but seems to be clinically resolving fast. recommend cont with slow advancement of diet, iv antibx and will have Dr Wood see tomorrow re elective surgical resection. Fall Risk Details Current Medications: Current Medications Enoxaparin Sodium (Enoxaparin Sodium 40 Mg/0.4 Ml Syringe) 40 mg SUBCUT DAILY [facility] Last Admin: 08/01/21 09:20 Dose: 40 mg Documented by: Levofloxacin (Levaquin) 750 mg in 150 mls @ 100 mls/hr IV Q24H [facility] Last Infusion: 07/31/21 22:13 Dose: Infused Documented by: Metronidazole (Flagyl) 500 mg in 100 mls @ 100 mls/hr IV Q8H [facility] Last Infusion: 08/01/21 10:31 Dose: Infused Documented by: Lactated Ringer's (Lr) 1,000 mls @ 80 mls/hr IVCONT .[id number] [facility] Last Admin: 08/01/21 07:09 Dose: Not Given Documented by: Morphine Sulfate (Morphine Sulfate 2 Mg/Ml Cartridge) 2 mg IVPUSH Q4H PRN; Protocol PRN Reason: Pain, Mild (Pain Scale 1-3) Last Admin: 07/31/21 12:55 Dose: 2 mg Documented by: Pharmacy Consult (Consult Rx Perform Med Rec) 1 each MISCELLANE ONCE PRN PRN Reason: Consult order Sodium Chloride (0.9 % Sodium Chloride Flush 3 Ml Syringe) 3 ml IVFLUSH QSHIFT [facility] Last Admin: 08/01/21 07:09 Dose: Not Given Documented by: Time Spent With Patient Time: Total time spent is greater than 50% in coordination of care (as documented) at patient's floor/unit and/or counseling patient: Time with patient: less than 15 minutes Quality Stroke Does the patient have a stroke diagnosis?: No VTE Prior VTE?: No VTE Risk Level:: Medical - moderate - high VTE Device Contraindication: N/A - Device Ordered VTE Drug Contraindication: N/A - Med Ordered
[2021-08-01] MEDS: levoFLOXacin/D5W 750 MG/150 ML PIGGYBACK 100 MG IV (18:40)
--- NOTE | 2021-08-01 19:45 | CONS_ITS ---
DATE OF SERVICE: 08/01/2021 REFERRING PHYSICIAN: Clem Armendariz MD REASON FOR CONSULTATION: Diverticulitis. HISTORY OF PRESENT ILLNESS: The patient is a pleasant 26-year-old woman, seen today in consultation because of diverticulitis. She has a prior history of diverticulitis treated as an outpatient with antibiotics approximately 5 or 6 times by her report. She does report also undergoing colonoscopy within the past year and has seen a surgeon in consultation regarding her diverticulitis, but has not been scheduled for surgery. The consultation for surgery and colonoscopy were done through the [facility]. She was admitted to the hospital after developing abdominal pain yesterday. She came to the emergency room and had blood work showing an elevation of her white count of 13, which is down to 9.[address] scanning of the abdomen and pelvis, which was obtained is reviewed and she has been seen in consultation by Dr. Humphrey from General Surgery. Her CT scan is interpreted as showing acute diverticulitis with a large amount of inflammatory change within the mesentery with a phlegmon, but no drainable abscess. We discussed this today. PAST MEDICAL HISTORY: 1. Diverticulitis as above. 2. She denies other medical or surgical problems. CURRENT MEDICATIONS: Her current medication list is reviewed in the chart. ALLERGIES: THERE ARE NONE REPORTED. FAMILY HISTORY: Negative for GI malignancy. SOCIAL HISTORY: There is no current tobacco, alcohol, or substance abuse. REVIEW OF SYSTEMS: SKIN: No pruritus. HEENT: Negative. CARDIOPULMONARY: She denies shortness of breath or chest pain. GASTROINTESTINAL: As above. GENITOURINARY: Negative. NEUROPSYCHIATRIC: Negative. PHYSICAL EXAMINATION: GENERAL: Shows a pleasant female, in no acute distress. VITAL SIGNS: Reviewed in electronic medical record and are stable. SKIN: Anicteric. HEENT: Shows no scleral icterus. NECK: Without lymphadenopathy or thyromegaly. LUNGS: Clear. HEART: Shows a regular rate and rhythm. S1, S2. No murmur. ABDOMEN: Soft without focal masses or tenderness. Bowel sounds are present. No organomegaly is noted. EXTREMITIES: Without edema. LABORATORY DATA: Laboratory data and CT scanning are reviewed as above. IMPRESSION: Diverticulitis. She appears to have had a moderate episode of acute diverticulitis with significant inflammatory changes as outlined in the CT scan report. Currently, she is clinically improved and her white count has come down to within the normal range. At this point, I would recommend trialing her on clear liquids and continue her IV antibiotics. I did discuss with her possible surgery down the road once her diverticulitis has healed as she is somewhat young to have had multiple episodes of diverticulitis. Thanks for asking me to see her. I will follow her in the hospital with you. MD FRANSICO Villalobos/CATRACHITA / [phone]
[2021-08-01] MEDS: Morphine Sulfate 2 MG/ML CARTRIDGE IVPUSH (23:41)
[2021-08-01] MEDS: 0.9 % Sodium Chloride Flush 3 ML SYRINGE IVFLUSH (23:41)
[2021-08-02] MEDS: metroNIDAZOLE/NS 500 MG/100 ML PIGGYBACK 100 MG IV ×3 (01:30→17:22)
[2021-08-02] MEDS: Lactated Ringers 1,000 ML 80 ML IVCONT ×2 (01:32→09:18)
[2021-08-02 03:36] VITALS: BP 121/61; PULSE 70; RESP 18; TEMP 37; O2SAT 94
[2021-08-02 06:44] LABS: Anion Gap 12 (12-20); Blood Urea Nitrogen 5 mg/dL (9-16); Calcium 9.1 mg/dL (8.4-10.2); Carbon Dioxide 27 mmol/L (22-29); Chloride 104 mmol/L (96-108); Creatinine Clr Calc Pharmacy 137.5; Estimated Glomerular Filt Rate > 60; Glucose Random 83 mg/dL (60-115); Potassium 3.7 mmol/L (3.3-5.1); Sodium 139 mmol/L (135-145)
[2021-08-02 07:30] VITALS: BP 139/69; PULSE 68; RESP 16; TEMP 36.9; O2SAT 95
[2021-08-02] MEDS: Potassium Chloride Packet 20 MEQ PACKET PO (08:21)
[2021-08-02] MEDS: Enoxaparin Sodium 40 MG/0.4 ML SYRINGE SUBCUT (08:21)
--- NOTE | 2021-08-02 09:06 | P.PNGS_ITS ---
Subjective Subjective Date of Service: 08/02/21 <Lyndsey Lawson PA-C - Last Filed: 08/02/21 09:12> 08/02/21 <Melvin Wood MD - Last Filed: 08/02/21 11:19> Interval history: Feels better this morning, pain minimal. Tolerating clear liquids without worsening abdominal pain, nausea or vomiting. <Lyndsey Lawson PA-C - Last Filed: 08/02/21 09:12> Physical Exam Vital Signs: Vital Signs: Last Vital Signs Temp 98.5 F 08/02/21 07:30 Pulse 68 08/02/21 07:30 Resp 16 08/02/21 07:30 BP 139/69 08/02/21 07:30 Pulse Ox 95 08/02/21 07:30 Body Mass Index 42.5 <TERELL Vega Last Filed: 08/02/21 09:12> Const: General: comfortable, no acute distress and alert <Lyndsey Lawson PA-C - Last Filed: 08/02/21 09:12> Orientation/consciousness: patient oriented x3 <Lyndsey Lawson PA-C - Last Filed: 08/02/21 09:12> Resp: Effort & Inspection: normal respiratory effort <TERELL Vega Last Filed: 08/02/21 09:12> GI: Inspection: Yes normal to inspection and No distended <Lyndsey Lawson PA-C - Last Filed: 08/02/21 09:12> Palpation (GI): Soft to palpation, Tenderness to palpation present (GI) (very mild to deep palpation) in the LLQ and in the RLQ, no guarding and not rigid <Lyndsey Lawson PA-C - Last Filed: 08/02/21 09:12> Percussion: Yes normal to percussion <TERELL Vega Last Filed: 08/02/21 09:12> Skin: General skin exam: no rashes or lesions noted <TERELL Vega Last Filed: 08/02/21 09:12> Neuro: General: patient oriented x3 <TERELL Vega Last Filed: 08/02/21 09:12> Extrem: General: Yes no clubbing, cyanosis or edema <Lyndsey Lawson PA-C - Last Filed: 08/02/21 09:12> Procedures Date of Service Date of Service: 08/02/21 <Lyndsey Lawson PA-C - Last Filed: 08/02/21 09:12> Progress Note: A&P Assessment and plan (1) Diverticulitis: Status: Acute <Lyndsey Lawson PA-C - Last Filed: 08/02/21 09:12> Assessment and Plan: She feels much better Denies significant pain Tolerating full liquids Abdomen soft, nontender She has had recurrent episodes the past year I can see her in the office to discuss option of elective resection Seen and examined - agree with ELIZABETH Lawson <Melvin Wood MD - Last Filed: 08/02/21 11:19> Assessment and Plan: 26 year old female admitted for treatment of diverticulitis of the sigmoid and left colon. She has had multiple episodes of diverticulitis, all treated on outpatient basis with PO antibiotics, and had a colonoscopy in [facility] earlier this year which showed calderon diverticulosis (records reviewed). She reports this episode was more severe- CT scan showed with significant fat stranding and mesenteric involvement sigmoid and left colon. She has been improving with nonoperative measures- on IV zosyn, IVF. She feels much improved and has been tolerating clear liquids yesterday. She has been advanced to a full liquid diet this morning. Rec continuing conservative measures, discussed advancement to low residue diet tomorrow if tolerating full liquids. She can follow up with Dr. Wood in office following discharge to discuss elective resection as this is now impacting her quality of life. Patient comfortable with plan. <Lyndsey Lawson PA-C - Last Filed: 08/02/21 09:12> Fall Risk Details Current Medications: Current Medications Enoxaparin Sodium (Enoxaparin Sodium 40 Mg/0.4 Ml Syringe) 40 mg SUBCUT DAILY [facility] Last Admin: 08/02/21 08:21 Dose: 40 mg Documented by: Levofloxacin (Levaquin) 750 mg in 150 mls @ 100 mls/hr IV Q24H [facility] Last Infusion: 08/01/21 20:28 Dose: Infused Documented by: Metronidazole (Flagyl) 500 mg in 100 mls @ 100 mls/hr IV Q8H [facility] Last Infusion: 08/02/21 02:33 Dose: Infused Documented by: Lactated Ringer's (Lr) 1,000 mls @ 80 mls/hr IVCONT .[id number] [facility] Last Admin: 08/02/21 01:32 Dose: 80 mls/hr Documented by: Morphine Sulfate (Morphine Sulfate 2 Mg/Ml Cartridge) 2 mg IVPUSH Q4H PRN; Protocol PRN Reason: Pain, Mild (Pain Scale 1-3) Last Admin: 08/01/21 23:41 Dose: 2 mg Documented by: Pharmacy Consult (Consult Rx Perform Med Rec) 1 each MISCELLANE ONCE PRN PRN Reason: Consult order Sodium Chloride (0.9 % Sodium Chloride Flush 3 Ml Syringe) 3 ml IVFLUSH QSHIFT [facility] Last Admin: 08/02/21 08:26 Dose: Not Given Documented by: <Lyndsey Lawson PA-C - Last Filed: 08/02/21 09:12> Time Spent With Patient Time: Total time spent is greater than 50% in coordination of care (as documented) at patient's floor/unit and/or counseling patient: <Lyndsey Lawson PA-C - Last Filed: 08/02/21 09:12> Time with patient: 15 - 24 minutes <Lyndsey Lawson PA-C - Last Filed: 08/02/21 09:12> Quality Stroke Does the patient have a stroke diagnosis?: No <Lyndsey Lawson PA-C - Last Filed: 08/02/21 09:12> VTE Prior VTE?: No <Lyndsey Lawson PA-C - Last Filed: 08/02/21 09:12> VTE Risk Level:: Medical - moderate - high <Lyndsey Lawson PA-C - Last Filed: 08/02/21 09:12> VTE Device Contraindication: N/A - Device Ordered <TERELL Vega Last Filed: 08/02/21 09:12> VTE Drug Contraindication: N/A - Med Ordered <Lyndsey Lawson PA-C - Last Filed: 08/02/21 09:12>
--- NOTE | 2021-08-02 09:50 | HO.PM.IMPN ---
Subjective Subjective Date of Service: 08/02/21 Interval History: diverticulitis Review of Systems Abdominal pain seems improving Denies any new complaint of chest pain or shortness of breath or fever or chills or nausea or vomiting Denies any cough Denies any weakness or numbness. Physical Exam Vital Signs: Vital Signs: Last Vital Signs Temp 98.5 F 08/02/21 07:30 Pulse 68 08/02/21 07:30 Resp 16 08/02/21 07:30 BP 139/69 08/02/21 07:30 Pulse Ox 95 08/02/21 07:30 Body Mass Index 42.5 Alert.? Oriented X3.? not in distress.? Eyes: Pupils equal, round and reactive to light.? Sclera nonicteric.? ENT: Pharynx normal.? Moist mucous membranes. cvs: rrr, [id number] , no murmur res: clear to auscultation ,no rhonchii or wheezing abd: no rebound or guarding , left lower quadrent tenderness seems improving in comparion to yesterday , bs present. ext pulses present , no cyanosis ,Gait well balanced well coordinated. neuro: axo3 , nonfocal Objective Data Active Medications Enoxaparin Sodium (Enoxaparin Sodium 40 Mg/0.4 Ml Syringe) 40 mg SUBCUT DAILY [facility] Last Admin: 08/02/21 08:21 Dose: 40 mg Documented by: ANTIHA Levofloxacin (Levaquin) 750 mg in 150 mls @ 100 mls/hr IV Q24H [facility] Last Infusion: 08/01/21 20:28 Dose: 0 mls/hr Documented by: ODRISM Metronidazole (Flagyl) 500 mg in 100 mls @ 100 mls/hr IV Q8H [facility] Last Admin: 08/02/21 09:18 Dose: 100 mls/hr Documented by: ANITHA Lactated Ringer's (Lr) 1,000 mls @ 80 mls/hr IVCONT .[id number] [facility] Last Admin: 08/02/21 09:18 Dose: 80 mls/hr Documented by: ANITHA Morphine Sulfate (Morphine Sulfate 2 Mg/Ml Cartridge) 2 mg IVPUSH Q4H PRN; Protocol PRN Reason: Pain, Mild (Pain Scale 1-3) Last Admin: 08/01/21 23:41 Dose: 2 mg Documented by: JESSICA Pharmacy Consult (Consult Rx Perform Med Rec) 1 each MISCELLANE ONCE PRN PRN Reason: Consult order Sodium Chloride (0.9 % Sodium Chloride Flush 3 Ml Syringe) 3 ml IVFLUSH QSHIFT [facility] Last Admin: 08/02/21 08:26 Dose: Not Given Documented by: ANITHA Non-Admin Reason: IV Running Labs CBC & Chem 7: 07/31/21 06:02 08/02/21 06:19 Labs: Laboratory Results - last 24 hr 08/02/21 06:19 Anion Gap 12 Estim Creat Clear Calc 137.5 Estimated GFR > 60 Random Glucose 83 Calcium 9.1 Microbiology Microbiology Results: Microbiology 07/30/21 17:50 Blood Culture - Preliminary Blood - Venous No growth after 48 hours. 07/30/21 17:50 Blood Culture - Preliminary Blood - Venous No growth after 48 hours. Assessment and Plan (1) Phlegmon: Status: Acute (2) Diverticulitis: Status: Acute (3) Morbid obesity: Status: Acute Assessment and Plan: 1. Acute diverticulitis/phlegmon improving slowly full liquid, IV hydration, IV Levaquin and Flagyl day 4, iv morhine for pain control(moniter for sedation/respiratory issues). Surgery evaluation noted -medical records contacted for [facility] for previous admits. gi eval noted-continue IV antibiotic, full liquid diet, surgery follow-up pending 2. Morbid obesity:? Encouraged to lose weight and consider outpatient bariatric evaluation. DVT prophylaxis:? SubQ Lovenox. Quality Stroke Does the patient have a stroke diagnosis?: No VTE Prior VTE?: No VTE Risk Level:: Medical - moderate - high VTE Device Contraindication: N/A - Device Ordered VTE Drug Contraindication: N/A - Med Ordered
--- NOTE | 2021-08-02 11:56 | MHC.CM.PN ---
PER HOSPITALIST PT'S ABD PAIN IMPROVING, PLAN TO ADVANCE DIET TO FULL LIQUIDS TODAY, NO PLAN FOR D/C, CM WILL CONT TO FOLLOW D/C NEEDS.
[2021-08-02 15:13] VITALS: BP 145/95; PULSE 83; RESP 18; TEMP 36.3; O2SAT 100
[2021-08-02 20:00] VITALS: BP 134/64; PULSE 80; RESP 18; TEMP 36.3; O2SAT 100
[2021-08-02] MEDS: levoFLOXacin/D5W 750 MG/150 ML PIGGYBACK 100 MG IV (20:03)
[2021-08-02 23:55] VITALS: BP 130/86; PULSE 60; RESP 17; TEMP 36.6; O2SAT 97
[2021-08-03] MEDS: metroNIDAZOLE/NS 500 MG/100 ML PIGGYBACK 100 MG IV ×2 (01:44→09:40)
[2021-08-03 03:36] VITALS: BP 129/65; PULSE 67; RESP 17; TEMP 36.1; O2SAT 94
[2021-08-03 05:50] LABS: Anion Gap 11 (12-20); Blood Urea Nitrogen 5 mg/dL (9-16); Calcium 9.4 mg/dL (8.4-10.2); Carbon Dioxide 29 mmol/L (22-29); Chloride 103 mmol/L (96-108); Creatinine Clr Calc Pharmacy 128.9; Estimated Glomerular Filt Rate > 60; Glucose Random 87 mg/dL (60-115); Potassium 4.2 mmol/L (3.3-5.1); Sodium 139 mmol/L (135-145)
[2021-08-03 07:36] VITALS: BP 119/74; PULSE 59; RESP 18; TEMP 36.6; O2SAT 95
[2021-08-03] MEDS: Enoxaparin Sodium 40 MG/0.4 ML SYRINGE SUBCUT (09:40)
--- NOTE | 2021-08-03 11:19 | MHC.CM.PN ---
TRIPP GRIMES CM MET W/PT WHO REPORTS SHE IS FEELING MUCH BETTER, DIET ADVANCED TO REGULAR AND IF PT TOLERATING DIET SHE WILL BE DISCHARGED LATER TODAY. D/C PLAN: HOME SELF-CARE, FAMILY FOR TRANSPORT
[2021-08-03 11:54] VITALS: BP 129/71; PULSE 62; RESP 18; TEMP 36.8; O2SAT 95
--- NOTE | 2021-08-03 13:26 | PM.DS ---
DS: Providers Provider Date of Service: 08/03/21 Date of admission: 07/30/21 17:58 Primary care physician: Jaz Webb MD Consults: 07/30/21 18:02 Consult to General Surgery Routine Consulting Provider: Nata Humphrey Reason for consultation: diverticulitis/phelegmon Has provider been notified: No 08/01/21 07:28 Consult to Gastroenterology Routine Consulting Provider: Miles Turner Reason for consultation: Diverticulitis/phlegmon Has provider been notified: No DS: Diagnosis Discharge Diagnosis (1) Diverticulitis: Status: Acute DS: Summary Hospital Course Hospital Course: History of presenting illness Chief Complaint: abd pain 26-year-old female of diverticulosis, who has multiple episode of diverticulitis in past 1 and half year at least 5-6 time-coming to the hospital because of abdominal pain today, also has nausea. She says that the last episode of diverticulitis was 2-3 weeks back when she called her PCP and was given p.o. antibiotic outpatient and she felt better.? This time she is having significant pain and she end the hospital. ? In the emergency room patient was given, morphine levaquin,flagyl and subsequently ED physician discussed the case with surgery and recommended to admit patient for IV antibiotics and surgical evaluation in the morning. Denies any new complaint of chest pain or shortness of breath or fever or chills or nausea or vomiting Denies any cough Denies any weakness or numbness. Labs imaging reviewed: Patient has WBC count of 13.1, nofever or tachypnea Renal function electrolytes seems normal, LFTs also normal, normal lactic acid. CT abdomen:? Shows distal descending/proximal sigmoid colon diverticulitis/phlegmon appearance.? No free air or drainable abscess at present. Hospital course Acute diverticulitis with phlegmon patient admitted to medical floor placed on IV fluids, IV Levaquin and Flagyl and analgesics for pain control patient responded well to above treatment and was followed closely by General surgery, patient's symptoms improved, blood cultures are negative, WBC normalized, diet has been gradually advance currently tolerating low residue diet, therefore being discharged home with recommendation to follow low residue diet and to have outpatient follow-up with General surgery in next 1-2 weeks. She is being discharged home on 7 more days of Levaquin and Flagyl. In regard to morbid obesity recommended low-calorie diet. Time Spent with Patient Time attestation: Total time spent providing and/or coordinating discharge services: Discharge coordination time: Greater than 30 minutes Quality: Stroke Does the patient have a stroke diagnosis?: No Physical Exam Vital Signs: Vital Signs: Last Vital Signs Temp 98.2 F 08/03/21 11:54 Pulse 62 08/03/21 11:54 Resp 18 08/03/21 11:54 BP 129/71 08/03/21 11:54 Pulse Ox 95 08/03/21 11:54 Body Mass Index 42.5 General alert oriented x3,no acute distress. Neck is supple, no JVD. CVS regular rate rhythm, Respiratory lungs clear to auscultation, no respiratory distress, no wheeze, no rhonchi. Gastrointestinal abdomen soft, nontender, bowel sounds audible, no guarding , no rigidity. Extremities no edema. Neuro nonfocal, speech clear. Skin no rash Appropriate affect DS: Data Data Completed and Pending Labs on day of discharge: Laboratory Results - last 24 hr 08/03/21 05:15 Sodium 139 Potassium 4.2 Chloride 103 Carbon Dioxide 29 Anion Gap 11 L BUN 5 L Creatinine 0.79 Estim Creat Clear Calc 128.9 Estimated GFR > 60 Random Glucose 87 Calcium 9.4 Preliminary micro results at discharge 07/30/21 17:50 Blood Culture - Preliminary Blood - Venous No growth after 48 hours. 07/30/21 17:50 Blood Culture - Preliminary Blood - Venous No growth after 48 hours. Discharge Plan Discharge Patient Disposition: Home, Self-Care Discharge Diagnosis: Acute diverticulitis Morbid obesity Referrals: Jaz Webb MD [Primary Care Provider] - 1 Week Melvin Wood MD [Physician] - 2 Weeks Discharge Medications: New levofloxacin 500 mg tablet 500 mg PO DAILY 5 Days Qty: 7 RF: 0 metronidazole 500 mg tablet 500 mg PO BID Qty: 14 RF: 0 Continued dicyclomine 10 mg capsule 1 cap PO BID PRN (Reason: abdominal pain) RF: 0 levonorgestrel-ethinyl estrad [Sronyx] 0.1-20 mg-mcg tablet 1 tab PO BEDTIME RF: 0 Held psyllium husk [Fiber Laxative (psyllium husk)] 0.52 gram capsule 3.4 g PO DAILY RF: 0 Hold Instructions: Resume on 08/10/21. Discharge Orders: Discharge Order (Routine); Ordered 08/03/21 Ordered By: Zach Johnson Diet: advance to usual diet Activity on Discharge: As tolerated Stand Alone Forms: Patient Portal Discharge page Care Plan Goals: Take by mouth antibiotics for 7 more days, follow low residue diet, follow-up with general surgeon Dr. Wood in next 1-2 weeks return to check with any worsening abdominal pain nausea vomiting or fever Health Concerns: Low-calorie diet/hold high-fiber diet for 1 week Plan of Treatment: Follow-up with primary care physician and General surgery in 1-2 weeks Assessment: As above
== END 2021-08-03 13:44 | disposition home or self-care (01) | DRG 244 ==
LOC: HO.ED 17:43 → HO.EDOVER 18:09 → HO.S3 18:11
PROVIDERS: Physician Assistant; Admitting Provider Internal Medicine; Emergency Provider Emergency Medicine; PCP Internal Medicine; Visit Provider Hospitalist
DX: K57.20 Diverticulitis of large intestine with perforation and abscess without bleeding (principal); Z68.41 Body mass index [BMI] 40.0-44.9, adult; E66.01 Morbid (severe) obesity due to excess calories; Z20.822 Contact with and (suspected) exposure to COVID-19; Z79.3 Long term (current) use of hormonal contraceptives; Z79.899 Other long term (current) drug therapy
CPT/HCPCS: 36415; 74177; 80048; 80076; 81003; 81025; 83605; 83690; 83735; 85025; 85027; 87040; 87635; 99283; J1650; J1956; J2270; J2405; Q9967

== ENCOUNTER 2021-08-05 17:31 | Inpatient (IN) | payer OTHER, SELFPAY ==
--- NOTE | ~2021-08-05 | CT_ITS ---
EXAMINATION: CT ABDOMEN AND PELVIS WITH CONTRAST CLINICAL INFORMATION: Left lower quadrant abdominal pain. Recent diverticulitis with phlegmon. Nausea, vomiting, constipation. COMPARISON: Multiple priors, most recent CT abdomen/pelvis dated 07/30/2021. TECHNIQUE: Multidetector volumetric images were obtained from the superior aspect of the liver through the pubic symphysis following administration 85 mL of Omnipaque 350 intravenous contrast. Sagittal and coronal reformatted images were obtained on the technologist's workstation. Oral contrast: No This CT examination was performed using dose optimization techniques as appropriate, variously including the following: *Automated exposure control *Adjustment of mA and/or kV according to patient size (this includes techniques or standardized protocols for targeted exams where dose is matched to indication/reason for exam; i.e. extremities or head) *Use of iterative reconstruction technique DLP: 944 mGy-cm FINDINGS: LUNG BASES: The visualized lung bases are unremarkable. LIVER, GALLBLADDER, AND BILIARY TREE: The liver is normal in size, shape, and attenuation. Mild fatty infiltration adjacent to the falciform ligament, unchanged. No focal hepatic lesion or biliary ductal dilatation is present. The gallbladder is unremarkable with no evidence of radiopaque gallstones, gallbladder wall thickening, or obvious pericholecystic inflammatory changes. PANCREAS: Unremarkable. SPLEEN: Unremarkable. ADRENAL GLANDS: Unremarkable. KIDNEYS AND URETERS: The kidneys are normal in size, shape, and attenuation. No hydronephrosis, hydroureter, or calculi seen. No perinephric stranding. BLADDER: Nondistended and unremarkable. GASTROINTESTINAL TRACT: Redemonstration of circumferential wall thickening in the left lower quadrant sigmoid colon, similar when compared to the prior examination and consistent with acute diverticulitis. Superior to this area and associated with multiple small bowel loops is a complex, heterogeneously enhancing collection. This measures up to 5.8 x 6.9 cm in greatest axial dimension (previously 6 x 6.1 cm on a similar axial image). There are small foci of air associated with this collection which likely represent air within the bowel lumen rather than extraluminal air. Stranding extends both inferior and superior to this area with a small amount of pelvic free fluid. No small or large bowel obstruction. Unremarkable appendix. ABDOMINAL WALL: No significant hernia is appreciated. LYMPH NODES: Redemonstration of stable retroperitoneal lymph nodes, likely reactive. No new or increasing lymphadenopathy. VASCULAR: Unremarkable. PELVIC VISCERA: The uterus and adnexa are unremarkable. OSSEOUS STRUCTURES: Unremarkable. CT/CT abdomen pelvis w con IMPRESSION: 1. Redemonstration of left lower quadrant diverticulitis with prominent adjacent stranding as well as a complex fluid collection/phlegmon extending superiorly and associated with multiple more central small bowel loops. There is again noted to be adjacent stranding as well as a small amount of pelvic free fluid. Overall, findings are similar when compared to the prior examination. No associated intra-abdominal free air. 2. No new organized fluid collection.
[2021-08-05 17:34] VITALS: BP 140/95; PULSE 89; RESP 17; TEMP 36.8; O2SAT 100; BMI 40.7
--- NOTE | 2021-08-05 18:09 | ED.ABDPAIN ---
HPI - Abdominal Pain General Chief Complaint: Abdominal Pain Stated Complaint: abd pain, vomiting Time Seen by Provider: 08/05/21 17:55 Source: patient Mode of arrival: ambulatory History of Present Illness HPI narrative: 26-year-old male with past medical history of diverticulosis/diverticulitis, recently discharged from our facility on 08/03 for diverticulitis/phlegmon appearance on CT, presenting to the ED complaining of recurrent LLQ abdominal pain, nausea, vomiting, and diarrhea. Reports decreased BMs a/minimal output x1 week. Denies fever, chills, dysuria/hematuria, vaginal bleeding/discharge Patient is currently taking Levaquin and Flagyl outpatient MD elicited complaint: abdominal pain Related Data Home Medications Medication Instructions Recorded Confirmed levonorgestrel-ethinyl estradiol 1 tab PO BEDTIME 05/18/21 08/05/21 0.1 mg-20 mcg tablet (Sronyx) dicyclomine 10 mg capsule 1 cap PO BID PRN 07/30/21 08/05/21 Previous Rx's Medication Instructions Recorded levofloxacin 500 mg tablet 500 mg PO DAILY 5 Days #7 tab 08/03/21 metronidazole 500 mg tablet 500 mg PO BID #14 tab 08/03/21 Allergies Allergy/AdvReac Type Severity Reaction Status Date / Time No Known Allergies Allergy Verified 08/05/21 17:33 [No Known Allergies*] Review of Systems Review of Systems Constitutional:No Fever, No Chills, No Fatigue, No Malaise ENT/Mouth: No Ear Pain, No Nasal Congestion, No sore throat, No Rhinorrhea, No Swallowing Difficulty Eyes: No Eye Pain, No Swelling, No Redness, No Foreign Body, No Discharge Cardiovascular: No Chest Pain, No SOB, No Orthopnea, No Edema, No Palpitations Respiratory: No Cough, No Dyspnea Gastrointestinal: + Nausea, + Vomiting, No Diarrhea, + Constipation, + Abdominal pain Genitourinary: No irregular bleeding, No Dysuria, No Urinary Frequency, No Hematuria,No Flank Pain Musculoskeletal: No joint pain, No Myalgias, No Joint Swelling Skin: No Skin Lesions, No rash Neuro: No Weakness, No Numbness, No Dizziness, No Headache Yes all other systems are reviewed and are negative Physical Exam Vital Signs: Vital Signs: Last Vital Signs Temp 98.3 F 08/05/21 17:34 Pulse 62 10/28/21 21:16 Resp 15 08/05/21 21:16 BP 129/75 08/05/21 21:16 Pulse Ox 98 08/05/21 21:16 Body Mass Index 40.7 Const: General: cooperative, healthy appearing and no acute distress Orientation/consciousness: patient oriented x3 Limitations: no limitations HENMT: Head: Yes normal to inspection Ears: hearing grossly normal bilaterally General nose exam: Normal external nose present Face and sinus: Yes normal facial exam Eyes: General: appearance normal, both eyes and all related structures EOM: EOMs intact bilaterally Neck: Neck: Yes normal visual inspection and Yes no meningeal signs Resp: Effort & Inspection: normal respiratory effort Auscultation: clear to auscultation bilaterally, no rales, no rhonchi and no wheezes Cardio: Rate: regular rate Heart sounds: S1 normal heart sound present and S2 normal heart sound present GI: Inspection: Yes normal to inspection Palpation (GI): Soft to palpation, Tenderness to palpation present (GI) in the LLQ, no guarding and not rigid : General: Yes no CVA tenderness Back/Spine/Pelvis: Back: no CVA tenderness Skin: Rashes: no rashes Wounds: no wounds Neuro: General: patient oriented x3 and no meningeal signs Gait exam (Neuro): Normal gait present Extrem: General: Yes normal to inspection Course Course Course Narrative: -mild leukocytosis of 11.4, increased from prior hospitalization, AST/ ALT elevated (normal during prior admission) -lactic acid negative -2136--UA with RBCs/not infected CT abdomen pelvis w con IMPRESSION: ? 1. Redemonstration of left lower quadrant diverticulitis with prominent adjacent stranding as well as a complex fluid collection/phlegmon extending superiorly and associated with multiple more central small bowel loops. There is again noted to be adjacent stranding as well as a small amount of pelvic free fluid. Overall, findings are similar when compared to the prior examination. No associated intra-abdominal free air. ? 2. No new organized fluid collection.? >> spoke to General surgery, Dr. Ba, plan is for admission will initiate IV Zosyn MDM - Abdominal Pain MDM Narrative Medical decision making narrative: 26-year-old male with past medical history of diverticulosis/diverticulitis, recently discharged from our facility on 08/03 for diverticulitis/phlegmon appearance on CT, presenting to the ED complaining of recurrent LLQ abdominal pain, nausea, vomiting, and diarrhea. On exam VSS, NAD, abdomen soft with LQ TTP, no rebound or guarding, no CVAT. Concern for persistent/recurrent diverticulitis vs complicated diverticulitis. Rule out UTI. Lower concern for appendicitis/renal stone or pancreatitis/cholecystitis Plan: Labs, UA, IVF, lactic/blood cultures, +/- repeat CT patient has had 2 CTs this month Medical Records Attestation: I reviewed the patient's medical records. Lab Data Attestation: I reviewed the patient's lab results. Result diagrams: 08/05/21 18:25 08/05/21 18:25 Labs: Lab Results 08/05/21 08/05/21 08/05/21 Range/Units 18:25 18:25 18:25 WBC 11.4 H (4.8-10.8) X10*3/uL RBC 5.26 (4.20-5.50) X10*6/uL Hgb 13.9 D (12.0-16.0) g/dl Hct 42.4 (37-47) % MCV 80.6 (80-98) fL MCH 26.4 L (27.0-33.0) pg MCHC 32.8 (31.0-35.0) g/dl RDW 14.4 (11.0-16.0) % Plt Count 420 H (160-400) X10*3/uL MPV 10.5 (9.4-12.3) fL Immature Gran % (Auto) 0.4 (0.0-0.4) % Neut % (Auto) 81.8 H (45-73) % Lymph % (Auto) 13.0 L (20-40) % [place] % (Auto) 4.4 (2-11) % Eos % (Auto) 0.2 (0-4) % Baso % (Auto) 0.2 (0-2) % Lymph # (Auto) 1.5 (1.2-4.9) X10*3/uL [place] # (Auto) 0.5 (0.1-1.2) X10*3/uL Eos # (Auto) 0.0 (0.0-0.4) X10*3/uL Baso # (Auto) 0.0 (0.0-0.2) X10*3/uL Abs Immat Gran (auto) 0.04 H (0.00-0.03) X10*3/uL Absolute Neuts (auto) 9.3 H (2.0-8.3) X10*3/uL Absolute Nucleated RBC 0.000 (0.0-0.012) X10*3/uL Nucleated RBC % (auto) 0.0 (0.0-0.2) /100WBC Sodium 138 (135-145) mmol/L Potassium 4.4 (3.3-5.1) mmol/L Chloride 101 (96-108) mmol/L Carbon Dioxide 26 (22-29) mmol/L Anion Gap 15 (12-20) BUN 6 L (9-16) mg/dL Creatinine 0.85 (0.5-1.4) mg/dL Estim Creat Clear Calc 116.8 Estimated GFR > 60 Random Glucose 96 (60-115) mg/dL Lactic Acid 1.3 (0.5-2.0) mmol/L Calcium 9.8 (8.4-10.2) mg/dL Magnesium 1.7 (1.6-2.6) mg/dL Total Bilirubin 0.2 (0.0-1.0) mg/dL Direct Bilirubin 0.2 (0.0-0.5) mg/dL AST 103 H (5-31) U/L ALT 110 H (0-31) U/L Alkaline Phosphatase 78 (39-117) U/L Total Protein 7.8 (6.5-8.0) g/dL Albumin 4.2 (3.5-5.0) g/dL Urine Color Urine Appearance Urine pH (5.0-8.0) Ur Specific [place] (1.005-1.025) Urine Protein (NEG-TRACE) MG/DL Urine Glucose (UA) (NEG) MG/DL Urine Ketones (NEG) MG/DL Urine Blood (NEG) Urine Nitrite (NEG) Ur Leukocyte Esterase (NEG) Urine RBC (0) /HPF Urine WBC (0-4) /HPF Ur Squamous Epith Cells /LPF Urine Bacteria /LPF Urine Test (NEGATIVE) 08/05/21 08/05/21 Range/Units 19:38 19:38 WBC (4.8-10.8) X10*3/uL RBC (4.20-5.50) X10*6/uL Hgb (12.0-16.0) g/dl Hct (37-47) % MCV (80-98) fL MCH (27.0-33.0) pg MCHC (31.0-35.0) g/dl RDW (11.0-16.0) % Plt Count (160-400) X10*3/uL MPV (9.4-12.3) fL Immature Gran % (Auto) (0.0-0.4) % Neut % (Auto) (45-73) % Lymph % (Auto) (20-40) % [place] % (Auto) (2-11) % Eos % (Auto) (0-4) % Baso % (Auto) (0-2) % Lymph # (Auto) (1.2-4.9) X10*3/uL [place] # (Auto) (0.1-1.2) X10*3/uL Eos # (Auto) (0.0-0.4) X10*3/uL Baso # (Auto) (0.0-0.2) X10*3/uL Abs Immat Gran (auto) (0.00-0.03) X10*3/uL Absolute Neuts (auto) (2.0-8.3) X10*3/uL Absolute Nucleated RBC (0.0-0.012) X10*3/uL Nucleated RBC % (auto) (0.0-0.2) /100WBC Sodium (135-145) mmol/L Potassium (3.3-5.1) mmol/L Chloride (96-108) mmol/L Carbon Dioxide (22-29) mmol/L Anion Gap (12-20) BUN (9-16) mg/dL Creatinine (0.5-1.4) mg/dL Estim Creat Clear Calc Estimated GFR Random Glucose (60-115) mg/dL Lactic Acid (0.5-2.0) mmol/L Calcium (8.4-10.2) mg/dL Magnesium (1.6-2.6) mg/dL Total Bilirubin (0.0-1.0) mg/dL Direct Bilirubin (0.0-0.5) mg/dL AST (5-31) U/L ALT (0-31) U/L Alkaline Phosphatase (39-117) U/L Total Protein (6.5-8.0) g/dL Albumin (3.5-5.0) g/dL Urine Color YELLOW Urine Appearance HAZY Urine pH 6.0 (5.0-8.0) Ur Specific [place] 1.020 (1.005-1.025) Urine Protein TRACE (NEG-TRACE) MG/DL Urine Glucose (UA) NEG (NEG) MG/DL Urine Ketones 40 (NEG) MG/DL Urine Blood 3+ H (NEG) Urine Nitrite NEG (NEG) Ur Leukocyte Esterase NEG (NEG) Urine RBC 50-75 H (0) /HPF Urine WBC 0 (0-4) /HPF Ur Squamous Epith Cells 1+ /LPF Urine Bacteria 1+ /LPF Urine Test NEGATIVE (NEGATIVE) Discharge Plan Discharge Clinical Impression: Diverticulitis of large intestine with complication Patient Disposition: Admitted As Inpatient Prescriptions: No Action dicyclomine 10 mg capsule 1 cap PO BID PRN (Reason: abdominal pain) RF: 0 levofloxacin 500 mg tablet 500 mg PO DAILY 5 Days Qty: 7 RF: 0 metronidazole 500 mg tablet 500 mg PO BID Qty: 14 RF: 0 levonorgestrel-ethinyl estrad [Sronyx] 0.1-20 mg-mcg tablet 1 tab PO BEDTIME RF: 0 PMFSH Past Medical History Attestation statement: The following information was validated with the patient. Medical History (Updated 08/05/21 @ 21:37 by ELIZABETH Mueller) Diverticulitis Social History Social History Household Members: Family Housing: House Do you presently have visiting nurse or other home services: No Patient Tobacco Use Status: Never used Tobacco Advance Directives: Yes Advance Directives on File: Yes Advance Directives Date on File: 07/30/21 Patient : No service: No Current occupational status: employed
[2021-08-05 18:33] LABS: MANUAL DIFF FLAG NO
[2021-08-05 18:42] LABS: Basophils Percent Auto 0.2 % (0-2); Eosinophils Percent Auto 0.2 % (0-4); Hematocrit 42.4 % (37-47); Hemoglobin 13.9 g/dl (12.0-16.0); Imm Gran Abs Auto 0.04 X10*3/uL (0.00-0.03); Imm Gran Pct Auto 0.4 % (0.0-0.4); Lymphocytes Absolute Auto 1.5 X10*3/uL (1.2-4.9); Mean Corpuscular HGB Conc 32.8 g/dl (31.0-35.0); Mean Corpuscular Hemoglobin 26.4 pg (27.0-33.0); Mean Corpuscular Volume 80.6 fL (80-98); Mean Platelet Volume 10.5 fL (9.4-12.3); Monocytes Absolute Auto 0.5 X10*3/uL (0.1-1.2); Monocytes Percent Auto 4.4 % (2-11); Neutrophils Absolute Auto 9.3 X10*3/uL (2.0-8.3); Neutrophils Percent Auto 81.8 % (45-73); Platelet Count 420 X10*3/uL (160-400); Red Blood Count 5.26 X10*6/uL (4.20-5.50); Red Cell Distribution Width 14.4 % (11.0-16.0); White Blood Count 11.4 X10*3/uL (4.8-10.8)
[2021-08-05 18:44] LABS: Lactic Acid 1.3 mmol/L (0.5-2.0)
[2021-08-05 18:59] LABS: Alanine Aminotransferase 110 U/L (0-31); Albumin Level 4.2 g/dL (3.5-5.0); Alkaline Phosphatase 78 U/L (39-117); Anion Gap 15 (12-20); Aspartate Amino Transferase 103 U/L (5-31); Bilirubin Direct 0.2 mg/dL (0.0-0.5); Bilirubin Total 0.2 mg/dL (0.0-1.0); Blood Urea Nitrogen 6 mg/dL (9-16); Calcium 9.8 mg/dL (8.4-10.2); Carbon Dioxide 26 mmol/L (22-29); Chloride 101 mmol/L (96-108); Creatinine Clr Calc Pharmacy 116.8; Estimated Glomerular Filt Rate > 60; Glucose Random 96 mg/dL (60-115); Magnesium 1.7 mg/dL (1.6-2.6); Potassium 4.4 mmol/L (3.3-5.1); Sodium 138 mmol/L (135-145); Total Protein 7.8 g/dL (6.5-8.0)
[2021-08-05] MEDS: ondansetron HCL 4 MG/2 ML VIAL IVPUSH (19:03)
[2021-08-05] MEDS: Ketorolac Tromethamine 15 MG/ML VIAL IVPUSH (19:05)
[2021-08-05] MEDS: 0.9 % Sodium Chloride 1,000 ML 999 ML IVCONT (19:07)
[2021-08-05 19:50] LABS: Appearance Urine HAZY; Color Urine YELLOW; Glucose Urine UA NEG (NEG); Leukocyte Esterase Urine NEG (NEG); Nitrite Urine NEG (NEG); UACC Culture Trigger NO; Urine Blood 3+ (NEG); Urine Ketones 40 MG/DL (NEG); Urine Protein TRACE MG/DL (NEG-TRACE)
[2021-08-05 19:52] LABS: UPreg QC Valid YES; Urine Pregnancy NEGATIVE (NEGATIVE)
[2021-08-05 19:57] LABS: Bacteria Urine 1+ /LPF; RBC Urine 50-75 /HPF (0); Squamous Epithelial Cell Urine 1+ /LPF; WBC Urine 0 /HPF (0-4)
[2021-08-05] MEDS: iohexoL 350 MG/ML 100 ML INFUS..BTL IV (20:13)
[2021-08-05 20:23] VITALS: RESP 16
[2021-08-05 21:16] VITALS: BP 129/75; PULSE 62; RESP 15; O2SAT 98
[2021-08-05] MEDS: Piperacillin Sodium/Tazobactam 3.375 GM in 0.9 % Sodium Chloride 50 ML IV (21:52)
[2021-08-05 22:05] LABS: COVID-19 Test Negative (Negative)
[2021-08-05] MEDS: Dextrose 5 % and Lactated Ring 1,000 ML 100 ML IVCONT (22:19)
--- NOTE | 2021-08-05 23:20 | PC.NURSE ---
nurse to nurse report given to Arely ALFARO
[2021-08-06] VITALS: BP 126/75; RESP 18; TEMP 36.8; O2SAT 93
[2021-08-06] MEDS: Morphine Sulfate 4 MG/ML CARTRIDGE IVPUSH ×2 (03:45→23:06)
[2021-08-06] MEDS: Piperacillin Sodium/Tazobactam 3.375 GM in 0.9 % Sodium Chloride 50 ML IV ×4 (03:45→21:09)
[2021-08-06 04:00] VITALS: RESP 20
[2021-08-06 06:59] LABS: Hematocrit 37.7 % (37-47); Mean Corpuscular HGB Conc 31.8 g/dl (31.0-35.0); Mean Corpuscular Hemoglobin 25.4 pg (27.0-33.0); Mean Corpuscular Volume 79.9 fL (80-98); Mean Platelet Volume 10.9 fL (9.4-12.3); Platelet Count 377 X10*3/uL (160-400); Red Blood Count 4.72 X10*6/uL (4.20-5.50); Red Cell Distribution Width 14.2 % (11.0-16.0); White Blood Count 8.6 X10*3/uL (4.8-10.8)
[2021-08-06 07:16] LABS: Anion Gap 11 (12-20); Blood Urea Nitrogen 4 mg/dL (9-16); Calcium 8.4 mg/dL (8.4-10.2); Carbon Dioxide 26 mmol/L (22-29); Chloride 106 mmol/L (96-108); Creatinine Clr Calc Pharmacy 124.1; Estimated Glomerular Filt Rate > 60; Glucose Fasting 106 mg/dL (60-99); Sodium 139 mmol/L (135-145)
[2021-08-06 07:19] VITALS: BP 109/70; PULSE 78; RESP 16; TEMP 36.3; O2SAT 94
[2021-08-06] MEDS: Dextrose 5 % and Lactated Ring 1,000 ML 100 ML IVCONT ×2 (07:46→17:53)
--- NOTE | 2021-08-06 08:29 | MHC.CM.PN ---
pt lives c her mother in her home. she reports that she is independent in her care.. she drives a car and works a job. pt denies the need for vna at dc. dc plan is home no svcs. cm to cont. to follow.
--- NOTE | 2021-08-06 08:47 | HE.PHANOTE ---
Spoke to Sue ALFARO who said the patients family will be able to bring in her non-formulary medication. Will follow up.
--- NOTE | 2021-08-06 10:32 | P.HPGS_ITS ---
History of Present Illness History of Present Illness Date of Service: 08/06/21 <Lyndsey Lawson PA-C - Last Filed: 08/06/21 11:02> 08/06/21 <Melvin Wood MD - Last Filed: 08/06/21 15:00> Chief complaint: Diverticulitis with phlegmon <Lyndsey Lawson PA-C - Last Filed: 08/06/21 11:02> Narrative: Kaya Chadwick is a 26 year old who presented to the ED with complaints of LLQ abdominal pain. She was [place] [facility] [place] for diverticulitis with phlegmon and treated with nonoperative measures. She improved fairly quickly and was discharged to home on 08/03/21 tolerating a low residue diet. She completed a 5 day course of IV levaquin and flagyl and was discharged to home on a PO course of these. She reports she was completely pain free at the time of discharge. She was taking her antibiotics at home. She was home for one day and redeveloped the LLQ abdominal pain. The pain was severe and associated with nausea and vomiting. She therefore presented to the ED for evaluation. Work up included CT scan which showed redemonstration of circumferential wall thickening in the left lower quadrant sigmoid colon, similar when compared to the prior examination with a complex, heterogeneously enhancing collection associated with multiple small bowel loops superior to the thickened sigmoid colon. Stranding extends both inferior and superior to this area, no free air. She also had a mild leukocytosis which is normal this morning. The patient reports having multiple episodes of diverticulitis, all treated on outpatient basis with PO antibiotics. She had a colonoscopy at [facility] earlier this year which showed calderon diverticulosis. However these recent episodes have been more severe. This morning, she reports no abdominal pain and feels much better. <Lyndsey Lawson PA-C - Last Filed: 08/06/21 11:02> Review of Systems Constitutional: Constitutional: Denies chills and Denies fever(s) <Lyndsey Lawson PA-C - Last Filed: 08/06/21 11:02> ENT: Denies dizziness <TERELL Vega Last Filed: 08/06/21 11:02> Cardiovascular: Cardiovascular: Denies chest pain, Denies palpitations and Denies dyspnea <Lyndsey Lawson PA-C - Last Filed: 08/06/21 11:02> Respiratory: Respiratory: Denies cough and Denies dyspnea <Lyndsey Lawson PA-C - Last Filed: 08/06/21 11:02> Gastrointestinal: Gastrointestinal: Reports as per HPI and Denies diarrhea <Lyndsey Lawson PA-C - Last Filed: 08/06/21 11:02> Genitourinary: Genitourinary: Denies hematuria and Denies dysuria <Lyndsey Lawson PA-C - Last Filed: 08/06/21 11:02> Integumentary/Breasts: Skin/Breast: Denies rash <Lyndsey Lawson PA-C - Last Filed: 08/06/21 11:02> Neurologic: Denies dizziness and Denies focal weakness <Lyndsey Lawson PA-C Last Filed: 08/06/21 11:02> Endocrine: Endocrine: Denies palpitations <Lyndsey Lawson PA-C - Last Filed: 08/06/21 11:02> [facility] Past Medical History Medical History: Medical History (Updated 08/05/21 @ 21:37 by ELIZABETH Mueller) Diverticulitis <Lyndsey Lawson PA-C Last Filed: 08/06/21 11:02> Social History Social History: Social History Household Members: Family Housing: House Do you presently have visiting nurse or other home services: No Patient Tobacco Use Status: Never used Tobacco Use of substances other than those prescribed or required for medical reasons: No Currently Displaying Signs/Symptoms of Drug Intoxication Withdrawal: No Have you been hit, kicked, punched, or otherwise hurt by someone within the past year? If so, by whom?: No Do you feel safe in your current relationship?: Yes Is there a partner from a previous relationship who is making you feel unsafe now?: No Are you made to feel afraid or neglected: No Advance Directives: Yes Advance Directives on File: Yes Advance Directives Date on File: 07/30/21 Do you have thoughts of harming others: None Do you have a plan to hurt others: No Plan Recently lost weight without trying: No Nutrition Risks: No Nutritional Risk Patient : No : No Poor oral hygiene: No service: No Current occupational status: employed <Lyndsey Lawson PA-C - Last Filed: 08/06/21 11:02> Meds Allergies/Adverse reactions: Allergies Allergy/AdvReac Type Severity Reaction Status Date / Time No Known Allergies Allergy Verified 08/05/21 17:33 [No Known Allergies*] <Lyndsey Lawson PA-C - Last Filed: 08/06/21 11:02> Active Medications: Current Medications Acetaminophen (Acetaminophen 325 Mg Tablet) 650 mg PO Q6H PRN PRN Reason: Fever Dicyclomine HCl (Dicyclomine Hcl 10 Mg Capsule) 10 mg PO BID PRN PRN Reason: abdominal pain Dextrose/Lactated Ringer's (D5lr) 1,000 mls @ 100 mls/hr IVCONT .Q10H ARIANNA Last Admin: 08/06/21 07:46 Dose: 100 mls/hr Documented by: Piperacillin Sod/Tazobactam (Sod 3.375 gm/ Sodium Chloride) 50 mls @ 100 mls/hr IV Q6H [facility] Last Infusion: 08/06/21 10:21 Dose: Infused Documented by: Morphine Sulfate (Morphine Sulfate 4 Mg/Ml Cartridge) 4 mg IVPUSH Q3H PRN; Protocol PRN Reason: Pain, severe Last Admin: 08/06/21 03:45 Dose: 4 mg Documented by: Patient Own Medication ( Levonorgestrel- Ethinyl Estrad [ Sronyx] 0.1-20 Mg- Mcg Tablet) 1 each PO BEDTIME ARIANNA Ondansetron HCl (Ondansetron Hcl 4 Mg/2 Ml Vial) 4 mg IVPUSH Q8H PRN PRN Reason: Nausea Pharmacy Consult (Consult Rx Perform Med Rec) 1 each MISCELLANE ONCE PRN PRN Reason: Consult order <Lyndsey Lawson PA-C - Last Filed: 08/06/21 11:02> Home medications: Home Medications Medication Instructions Recorded Confirmed Last Taken Type levonorgestrel-ethinyl estradiol 1 tab PO BEDTIME 05/18/21 08/05/21 07/29/21 History 0.1 mg-20 mcg tablet (Sronyx) dicyclomine 10 mg capsule 1 cap PO BID PRN 07/30/21 08/05/21 Unknown History <Lyndsey Lawson PA-C Last Filed: 08/06/21 11:02> Physical Exam Vital Signs: Vital Signs: Last Vital Signs Temp 97.3 F 08/06/21 07:19 Pulse 78 08/06/21 07:19 Resp 16 08/06/21 07:19 BP 109/70 08/06/21 07:19 Pulse Ox 94 08/06/21 07:19 Body Mass Index 40.7 <Lyndsey Lawson PA-C Last Filed: 08/06/21 11:02> Const: General: healthy appearing, comfortable, no acute distress and alert <Lyndsey Lawson PA-C Last Filed: 08/06/21 11:02> Orientation/consciousness: patient oriented x3 <Lyndsey Lawson PA-C Last Filed: 08/06/21 11:02> Eyes: Sclerae: sclerae normal <Lyndsey Lawson PA-C Last Filed: 08/06/21 11:02> Resp: Effort & Inspection: normal respiratory effort <Lyndsey Lawson PA-C Last Filed: 08/06/21 11:02> Cardio: Rate: regular rate <Lyndsey Lawson PA-C Last Filed: 08/06/21 11:02> GI: Other: round <Lyndsey Lawson PA-C Last Filed: 08/06/21 11:02> Inspection: Yes normal to inspection and No distended <Lyndsey Lawson PA-C Last Filed: 08/06/21 11:02> Palpation (GI): Soft to palpation, nontender, no guarding and not rigid <Lyndsey Lawson PA-C Last Filed: 08/06/21 11:02> Percussion: Yes normal to percussion <TERELL Vega Last Filed: 08/06/21 11:02> Skin: General skin exam: no rashes or lesions noted <Lyndsey Lawson PA-C Last Filed: 08/06/21 11:02> Neuro: General: patient oriented x3 <TERELL Vega Last Filed: 08/06/21 11:02> Extrem: General: Yes no clubbing, cyanosis or edema <Lyndsey Lawson PA-C - Last Filed: 08/06/21 11:02> Results Results Labs: Short CBC 08/05/21 08/06/21 Range/Units 18:25 06:06 WBC 11.4 H 8.6 (4.8-10.8) X10*3/uL Hgb 13.9 D 12.0 (12.0-16.0) g/dl Hct 42.4 37.7 (37-47) % Plt Count 420 H 377 (160-400) X10*3/uL BMP 08/05/21 08/06/21 18:25 06:06 Sodium 138 139 Potassium 4.4 4.0 Chloride 101 106 Carbon Dioxide 26 26 BUN 6 L 4 L Creatinine 0.85 0.80 Calcium 9.8 8.4 D Liver Function 08/05/21 Range/Units 18:25 Total Bilirubin 0.2 (0.0-1.0) mg/dL Direct Bilirubin 0.2 (0.0-0.5) mg/dL AST 103 H (5-31) U/L ALT 110 H (0-31) U/L Alkaline Phosphatase 78 (39-117) U/L Albumin 4.2 (3.5-5.0) g/dL Urine 08/05/21 08/05/21 Range/Units 19:38 19:38 Urine Color YELLOW Urine Appearance HAZY Urine pH 6.0 (5.0-8.0) Ur Specific [place] 1.020 (1.005-1.025) Urine Protein TRACE (NEG-TRACE) MG/DL Urine Glucose (UA) NEG (NEG) MG/DL Urine Test NEGATIVE (NEGATIVE) <TERELL Vega Last Filed: 08/06/21 11:02> Assessment and Plan (1) Diverticulitis of large intestine with complication: Status: Acute <TERELL Vega Last Filed: 08/06/21 11:02> patient seen and examined history reviewed now with no abdominal pain or tenderness exam very benign CT suggests phlegmonous changes IV abx bowel rest explained plan to patient <Melvin Wood MD - Last Filed: 08/06/21 15:00> 26 year old female with recent [place] [facility] [place] of diverticulitis with phlegmon who redeveloped symptoms at home. She feels improved this morning with no abdominal pain. She is clinically appearing well and her abdomen is very benign, soft and nontender. Discussed that she will likely need a longer course of IV antibiotics during this stay. Cont IV zosyn, IVF and bowel rest at this time. If she worsens, she may require repeat CT scan and emergent sigmoid resection, possible ostomy. Patient understands and is comfortable with plan. <Lyndsey Lawson PA-C - Last Filed: 08/06/21 11:02> Quality Stroke Does the patient have a stroke diagnosis?: No <Lyndsey Lawson PA-C - Last Filed: 08/06/21 11:02> VTE Prior VTE?: No <Lyndsey Lawson PA-C - Last Filed: 08/06/21 11:02> VTE Risk Level:: Surgical - low <Lyndsey Lawson PA-C - Last Filed: 08/06/21 11:02> VTE Device Contraindication: N/A - Device Ordered <Lyndsey Lawson PA-C - Last Filed: 08/06/21 11:02> VTE Drug Contraindication: Treatment Not Indicated <Lyndsey Lawson PA-C - Last Filed: 08/06/21 11:02> Procedures Date of Service Date of Service: 08/06/21 <Lyndsey Lawson PA-C - Last Filed: 08/06/21 11:02>
[2021-08-06 14:59] VITALS: BP 117/80; PULSE 91; RESP 20; TEMP 36.1; O2SAT 97
[2021-08-06 18:58] VITALS: BP 113/72; PULSE 78; RESP 20; TEMP 36.1; O2SAT 95
[2021-08-06 23:13] VITALS: BP 116/67; PULSE 87; RESP 20; TEMP 37.3; O2SAT 94
[2021-08-07] MEDS: Piperacillin Sodium/Tazobactam 3.375 GM in 0.9 % Sodium Chloride 50 ML IV ×4 (03:59→21:19)
[2021-08-07] MEDS: Dextrose 5 % and Lactated Ring 1,000 ML 100 ML IVCONT ×2 (03:59→15:40)
[2021-08-07 07:26] VITALS: BP 135/76; PULSE 65; RESP 20; TEMP 36.2; O2SAT 98
--- NOTE | 2021-08-07 11:05 | P.PNGS_ITS ---
Subjective Subjective Date of Service: 08/07/21 Interval history: Feels well Denies abdominal pain Asking for food Good flatus Physical Exam Vital Signs: Vital Signs: Last Vital Signs Temp 97.2 F 08/07/21 07:26 Pulse 65 08/07/21 07:26 Resp 20 08/07/21 07:26 BP 135/76 08/07/21 07:26 Pulse Ox 98 08/07/21 07:26 Body Mass Index 40.7 Const: Other: Chemistry 08/05/21 08/06/21 18:25 06:06 Sodium 138 139 Potassium 4.4 4.0 Carbon Dioxide 26 26 BUN 6 L 4 L Creatinine 0.85 0.80 Calcium 9.8 8.4 D Hematology 08/05/21 08/06/21 18:25 06:06 WBC 11.4 H 8.6 Hgb 13.9 D 12.0 Plt Count 420 H 377 Urinalysis 08/05/21 19:38 Urine Color YELLOW Urine Appearance HAZY Urine pH 6.0 Ur Specific Gravit y 1.020 Urine Protein TRACE Urine Glucose (UA) NEG Urine Ketones 40 Urine Blood 3+ H Urine Nitrite NEG Ur Leukocyte [place] ase NEG Urine RBC 50-75 H Urine WBC 0 Ur Squamous Epith Cells 1+ General: comfortable and no acute distress Resp: Effort & Inspection: normal respiratory effort Cardio: Rate: regular rate GI: Palpation (GI): Soft to palpation, not firm, nontender and no guarding Procedures Date of Service Date of Service: 08/07/21 Progress Note: A&P Assessment and plan (1) Diverticulitis: Status: Acute Assessment and Plan: Clinical doing very well WBC normal No pain or tenderness Will keep on IV antibiotics in view of phlegmonous changes on CT scan Slowly advance diet Exam very benign Fall Risk Details Current Medications: Current Medications Acetaminophen (Acetaminophen 325 Mg Tablet) 650 mg PO Q6H PRN PRN Reason: Fever Dicyclomine HCl (Dicyclomine Hcl 10 Mg Capsule) 10 mg PO BID PRN PRN Reason: abdominal pain Dextrose/Lactated Ringer's (D5lr) 1,000 mls @ 100 mls/hr IVCONT .Q10H [facility] Last Admin: 08/07/21 03:59 Dose: 100 mls/hr Documented by: Piperacillin Sod/Tazobactam (Sod 3.375 gm/ Sodium Chloride) 50 mls @ 100 mls/hr IV Q6H [facility] Last Admin: 08/07/21 10:29 Dose: 100 mls/hr Documented by: Morphine Sulfate (Morphine Sulfate 4 Mg/Ml Cartridge) 4 mg IVPUSH Q3H PRN; Protocol PRN Reason: Pain, severe Last Admin: 08/06/21 23:06 Dose: 4 mg Documented by: Patient Own Medication ( Levonorgestrel- Ethinyl Estrad [ Sronyx] 0.1-20 Mg- Mcg Tablet) 1 each PO BEDTIME [facility] Last Admin: 08/06/21 21:09 Dose: 1 each Documented by: Ondansetron HCl (Ondansetron Hcl 4 Mg/2 Ml Vial) 4 mg IVPUSH Q8H PRN PRN Reason: Nausea Pharmacy Consult (Consult Rx Perform Med Rec) 1 each MISCELLANE ONCE PRN PRN Reason: Consult order Time Spent With Patient Time: Total time spent is greater than 50% in coordination of care (as documented) at patient's floor/unit and/or counseling patient: Time with patient: 15 - 24 minutes Quality Stroke Does the patient have a stroke diagnosis?: No VTE Prior VTE?: No VTE Risk Level:: Surgical - low VTE Device Contraindication: N/A - Device Ordered VTE Drug Contraindication: Treatment Not Indicated
[2021-08-07 15:02] VITALS: BP 128/71; PULSE 99; RESP 21; TEMP 36.1; O2SAT 94
[2021-08-07 23:38] VITALS: BP 125/66; PULSE 81; RESP 18; TEMP 36.4; O2SAT 100
[2021-08-07] MEDS: Morphine Sulfate 4 MG/ML CARTRIDGE IVPUSH (23:43)
[2021-08-08] MEDS: Dextrose 5 % and Lactated Ring 1,000 ML 100 ML IVCONT ×3 (02:08→20:37)
[2021-08-08] MEDS: Piperacillin Sodium/Tazobactam 3.375 GM in 0.9 % Sodium Chloride 50 ML IV ×4 (03:55→22:15)
[2021-08-08 08:00] VITALS: BP 111/62; PULSE 75; RESP 18; TEMP 36.9; O2SAT 95
--- NOTE | 2021-08-08 11:27 | PM.PNGS ---
Subjective Subjective Date of Service: 08/08/21 Interval history: Denies any pain at all Feels well Hungry Wants to eat real food She says she is completely without complaints Physical Exam Vital Signs: Vital Signs: Last Vital Signs Temp 98.5 F 08/08/21 08:00 Pulse 75 08/08/21 08:00 Resp 18 08/08/21 08:00 BP 111/62 08/08/21 08:00 Pulse Ox 95 08/08/21 08:00 Body Mass Index 40.7 Const: General: comfortable and no acute distress Nutritional Appearance: obese Resp: Effort & Inspection: normal respiratory effort Cardio: Rate: regular rate GI: Other: Soft, nontender, nondistended, no guarding or rebound Procedures Date of Service Date of Service: 08/08/21 Progress Note: A&P Assessment and plan (1) Diverticulitis: Status: Acute Assessment and Plan: Completely asymptomatic No tenderness even with deep palpation Says she had good bowel movements -states that she did not have any bowel movement since discharge earlier this week Doing well overall Likely to advance diet later Antibiotics Possible DC home tomorrow Fall Risk Details Current Medications: Current Medications Acetaminophen (Acetaminophen 325 Mg Tablet) 650 mg PO Q6H PRN PRN Reason: Fever Dicyclomine HCl (Dicyclomine Hcl 10 Mg Capsule) 10 mg PO BID PRN PRN Reason: abdominal pain Dextrose/Lactated Ringer's (D5lr) 1,000 mls @ 100 mls/hr IVCONT .Q10H [facility] Last Admin: 08/08/21 09:58 Dose: 100 mls/hr Documented by: Piperacillin Sod/Tazobactam (Sod 3.375 gm/ Sodium Chloride) 50 mls @ 100 mls/hr IV Q6H [facility] Last Infusion: 08/08/21 10:32 Dose: Infused Documented by: Morphine Sulfate (Morphine Sulfate 4 Mg/Ml Cartridge) 4 mg IVPUSH Q3H PRN; Protocol PRN Reason: Pain, severe Last Admin: 08/07/21 23:43 Dose: 4 mg Documented by: Patient Own Medication ( Levonorgestrel- Ethinyl Estrad [ Sronyx] 0.1-20 Mg- Mcg Tablet) 1 each PO BEDTIME [facility] Last Admin: 08/07/21 21:20 Dose: 1 each Documented by: Ondansetron HCl (Ondansetron Hcl 4 Mg/2 Ml Vial) 4 mg IVPUSH Q8H PRN PRN Reason: Nausea Pharmacy Consult (Consult Rx Perform Med Rec) 1 each MISCELLANE ONCE PRN PRN Reason: Consult order Time Spent With Patient Time: Total time spent is greater than 50% in coordination of care (as documented) at patient's floor/unit and/or counseling patient: Time with patient: 15 - 24 minutes Quality Stroke Does the patient have a stroke diagnosis?: No VTE Prior VTE?: No VTE Risk Level:: Surgical - low VTE Device Contraindication: N/A - Device Ordered VTE Drug Contraindication: Treatment Not Indicated
[2021-08-08 15:59] VITALS: BP 117/73; PULSE 77; RESP 20; TEMP 36.6; O2SAT 94
[2021-08-09] VITALS: BP 113/63; PULSE 86; RESP 20; TEMP 36.9; O2SAT 94
[2021-08-09] MEDS: Acetaminophen 325 MG TABLET 650 MG PO (01:01)
[2021-08-09] MEDS: Piperacillin Sodium/Tazobactam 3.375 GM in 0.9 % Sodium Chloride 50 ML IV (05:30)
[2021-08-09 07:40] VITALS: BP 118/74; PULSE 62; RESP 18; TEMP 36.6; O2SAT 95
--- NOTE | 2021-08-09 09:26 | MHC.CM.PN ---
dc plan remains the same, home no svcs at this time. cm to cont. to follow.
--- NOTE | 2021-08-09 10:05 | P.PNGS_ITS ---
Subjective Subjective Date of Service: 08/09/21 <Lyndsey Lawson PA-C - Last Filed: 08/09/21 10:13> 08/09/21 <Melvin Wood MD - Last Filed: 08/09/21 12:14> Interval history: Feels great. Denies any abdominal pain. Tolerating solid diet. <Lyndsey Lawson PA-C - Last Filed: 08/09/21 10:13> Physical Exam Vital Signs: Vital Signs: Last Vital Signs Temp 97.8 F 08/09/21 07:40 Pulse 62 08/09/21 07:40 Resp 18 08/09/21 07:40 BP 118/74 08/09/21 07:40 Pulse Ox 95 08/09/21 07:40 Body Mass Index 40.7 <Lyndsey Lawson PA-C - Last Filed: 08/09/21 10:13> Const: General: comfortable and alert <Lyndsey Lawson PA-C - Last Filed: 08/09/21 10:13> Orientation/consciousness: patient oriented x3 <Lyndsey Lawson PA-C - Last Filed: 08/09/21 10:13> GI: Inspection: Yes normal to inspection and No distended <Lyndsey Lawson PA-C - Last Filed: 08/09/21 10:13> Palpation (GI): Soft to palpation, nontender, no guarding and not rigid <Lyndsey Lawson PA-C - Last Filed: 08/09/21 10:13> Skin: General skin exam: no rashes or lesions noted <Lyndsey Lawson PA-C - Last Filed: 08/09/21 10:13> Neuro: General: patient oriented x3 <Lyndsey Lawson PA-C - Last Filed: 08/09/21 10:13> Procedures Date of Service Date of Service: 08/09/21 <Lyndsey Lawson PA-C - Last Filed: 08/09/21 10:13> Progress Note: A&P Assessment and plan (1) Diverticulitis of large intestine with complication: Status: Acute <TERELL Vega Last Filed: 08/09/21 10:13> Assessment and Plan: Has been completely asymptomatic for over 3 days Tolerating diet well Has good flatus and BMs Seen and examined Agree with ELIZABETH Lawson <Melvin Wood MD - Last Filed: 08/09/21 12:14> Assessment and Plan: 26 year old female readmitted for diverticulitis with phlegmon. She has improved with conservative measures. She is completely asymptomatic with a very benign abd exam- completely nontender. She is tolerating a solid diet and feels ready for discharge. Will send on a PO course of Augmentin. F/u in [address] Wood. <Lyndsey Lawson PA-C - Last Filed: 08/09/21 10:13> Fall Risk Details Current Medications: Current Medications Acetaminophen (Acetaminophen 325 Mg Tablet) 650 mg PO Q6H PRN PRN Reason: Fever Last Admin: 08/09/21 01:01 Dose: 650 mg Documented by: Dicyclomine HCl (Dicyclomine Hcl 10 Mg Capsule) 10 mg PO BID PRN PRN Reason: abdominal pain Piperacillin Sod/Tazobactam (Sod 3.375 gm/ Sodium Chloride) 50 mls @ 100 mls/hr IV Q6H [facility] Last Infusion: 08/09/21 06:09 Dose: Infused Documented by: Morphine Sulfate (Morphine Sulfate 4 Mg/Ml Cartridge) 4 mg IVPUSH Q3H PRN; Protocol PRN Reason: Pain, severe Last Admin: 08/07/21 23:43 Dose: 4 mg Documented by: Patient Own Medication ( Levonorgestrel- Ethinyl Estrad [ Sronyx] 0.1-20 Mg- Mcg Tablet) 1 each PO BEDTIME [facility] Last Admin: 08/08/21 20:37 Dose: 1 each Documented by: Ondansetron HCl (Ondansetron Hcl 4 Mg/2 Ml Vial) 4 mg IVPUSH Q8H PRN PRN Reason: Nausea Pharmacy Consult (Consult Rx Perform Med Rec) 1 each MISCELLANE ONCE PRN PRN Reason: Consult order <Lyndsey Lawson PA-C - Last Filed: 08/09/21 10:13> Time Spent With Patient Time: Total time spent is greater than 50% in coordination of care (as documented) at patient's floor/unit and/or counseling patient: <Lyndsey Lawson PA-C - Last Filed: 08/09/21 10:13> Time with patient: 15 - 24 minutes <Lyndsey Lawson PA-C - Last Filed: 08/09/21 10:13> Quality Stroke Does the patient have a stroke diagnosis?: No <Lyndsey Lawson PA-C - Last Filed: 08/09/21 10:13> VTE Prior VTE?: No <Lyndsey Lawson PA-C - Last Filed: 08/09/21 10:13> VTE Risk Level:: Surgical - low <Lyndsey Lawson PA-C - Last Filed: 08/09/21 10:13> VTE Device Contraindication: N/A - Device Ordered <Lyndsey Lawson PA-C - Last Filed: 08/09/21 10:13> VTE Drug Contraindication: Treatment Not Indicated <Lyndsey Lawson PA-C - Last Filed: 08/09/21 10:13>
--- NOTE | 2021-08-09 10:18 | PM.DS ---
DS: Providers Provider Date of Service: 08/09/21 Date of admission: 08/05/21 21:25 Primary care physician: Jaz Webb MD Attending physician on admission: Estela Ba Attending physician on discharge: Melvin Wood DS: Diagnosis Discharge Diagnosis (1) Diverticulitis of large intestine with complication: Status: Acute DS: Summary Hospital Course Hospital Course: BRIEF HPI: ?Kaya Chadwick is a 26 year old who presented to the ED with complaints of LLQ abdominal pain. She was [place] [facility] [place] for diverticulitis with phlegmon and treated with nonoperative measures. She improved fairly quickly and was discharged to home on 08/03/21 tolerating a low residue diet. She completed a 5 day course of IV levaquin and flagyl and was discharged to home on a PO course of these. She reports she was completely pain free at the time of discharge. She was taking her antibiotics at home. She was home for one day and redeveloped the LLQ abdominal pain. The pain was severe and associated with nausea and vomiting. She therefore presented to the ED for evaluation. Work up included CT scan which showed redemonstration of circumferential wall thickening in the left lower quadrant sigmoid colon, similar when compared to the prior examination with a complex, heterogeneously enhancing collection associated with multiple small bowel loops superior to the thickened sigmoid colon. Stranding extends both inferior and superior to this area, no free air. She also had a mild leukocytosis which is normal this morning. The patient reports having multiple episodes of diverticulitis, all treated on outpatient basis with PO antibiotics. She had a colonoscopy at [facility] earlier this year which showed calderon diverticulosis. However these recent episodes have been more severe. HOSPITAL COURSE: ? The patient was admitted to the surgical service for further treatment of the diverticulitis with phlegmon. She was clinically appearing well with very benign abdominal exam. Discussed that she will likely need a longer course of IV antibiotics. She was started on IV zosyn, IVF and bowel rest. She actually felt improved and was asymptomatic at the time of admission. She remained inpatient and completed a 4 day course of IV zosyn. She was asymptomatic without any abdominal pain. Her diet was slowly advanced to clear liquids and then low residue. She was tolerating this without any symptoms. On the day of discharge, she was tolerating a low residue diet without abdominal pain, nausea or vomiting. Her abdominal exam was benign and nontender to deep palpation. She felt ready for discharge. She was discharged to home on a PO course of Augmentin. She is to follow up with DR. Wood in office in 1 week. Status at Discharge Functional status at discharge: independent ambulation Overall status at discharge: patient is back to baseline Time Spent with Patient Time attestation: Total time spent providing and/or coordinating discharge services: Discharge coordination time: Less than 30 minutes Quality: Stroke Does the patient have a stroke diagnosis?: No Physical Exam Vital Signs: Vital Signs: Last Vital Signs Temp 97.8 F 08/09/21 07:40 Pulse 62 08/09/21 07:40 Resp 18 08/09/21 07:40 BP 118/74 08/09/21 07:40 Pulse Ox 95 08/09/21 07:40 Body Mass Index 40.7 Const: General: comfortable and no acute distress Orientation/consciousness: patient oriented x3 GI: Inspection: No distended Palpation (GI): Soft to palpation, nontender, no guarding and not rigid Skin: General skin exam: no rashes or lesions noted Neuro: General: patient oriented x3 DS: Data Data Completed and Pending Labs on day of discharge: Preliminary micro results at discharge 08/05/21 19:19 Blood Culture - Preliminary Blood - Venous No growth after 48 hours. 08/05/21 18:25 Blood Culture - Preliminary Blood - Venous No growth after 48 hours. Discharge Plan Discharge Patient Disposition: Home, Self-Care Discharge Diagnosis: diverticulitis with phlegmon Referrals: Jaz Webb MD [Primary Care Provider] - 1 Week Melvin Wood MD [Physician] - 1 Week Discharge Medications: New amoxicillin-pot clavulanate [Augmentin] 500-125 mg tablet 1 tab PO Q12H Qty: 14 RF: 0 Continued dicyclomine 10 mg capsule 1 cap PO BID PRN (Reason: abdominal pain) RF: 0 levonorgestrel-ethinyl estrad [Sronyx] 0.1-20 mg-mcg tablet 1 tab PO BEDTIME RF: 0 Discontinued levofloxacin 500 mg tablet 500 mg PO DAILY 5 Days Qty: 7 RF: 0 metronidazole 500 mg tablet 500 mg PO BID Qty: 14 RF: 0 Discharge Orders: Discharge Order (Routine); Ordered 08/09/21 Ordered By: Lyndsey Lawson Diet: other Activity on Discharge: As tolerated Stand Alone Forms: Patient Portal Discharge page Activity Restrictions/Additional Instructions: Low residue diet Care Plan Goals: Return to baseline health Health Concerns: diverticulitis with phlegmon Plan of Treatment: Discharge to home on PO abx Assessment: Improved Patient Instructions: Low Fiber Diet (DC)
== END 2021-08-09 10:56 | disposition home or self-care (01) | DRG 244 ==
LOC: HO.ED 21:37 → HO.EDOVER 21:44 → HO.IMC 22:52
PROVIDERS: Physician Assistant; Admitting Provider Surgery; Emergency Provider Internal Medicine; PCP Internal Medicine; Visit Provider Surgery
DX: K57.20 Diverticulitis of large intestine with perforation and abscess without bleeding (principal); Z20.822 Contact with and (suspected) exposure to COVID-19; Z23 Encounter for immunization; Z79.3 Long term (current) use of hormonal contraceptives; Z79.899 Other long term (current) drug therapy
CPT/HCPCS: 36415; 74177; 80048; 80076; 81001; 81025; 83605; 83735; 85025; 85027; 87040; 87635; 90686; 96361; 96365; 96375; 99285; J1885; J2270; J2405; J2543; Q9967

== ENCOUNTER → 2021-08-19 08:26 | Outpatient (BNVA) | payer OTHER, SELFPAY | PROVIDERS: PCP Internal Medicine; Referring Provider Internal Medicine; Visit Provider Surgery ==

== ENCOUNTER 2024-06-02 17:47 | Inpatient (IN) | payer BC, SELFPAY ==
--- NOTE | ~2024-06-02 | CT_ITS ---
EXAMINATION: CT ABDOMEN AND PELVIS WITH CONTRAST CLINICAL INFORMATION: Left lower quadrant pain. History of diverticulitis with phlegmon. COMPARISON: 08/05/2021 TECHNIQUE: Multidetector volumetric images were obtained from the superior aspect of the liver through the pubic symphysis following administration of 99 mL of Omnipaque 350 intravenous contrast. Sagittal and coronal reformatted images were obtained on the technologist's workstation. Oral contrast: No This CT examination was performed using dose optimization techniques as appropriate, variously including the following: *Automated exposure control *Adjustment of mA and/or kV according to patient size (this includes techniques or standardized protocols for targeted exams where dose is matched to indication/reason for exam; i.e. extremities or head) *Use of iterative reconstruction technique DLP: 814 mGy-cm FINDINGS: LUNG BASES: Mild dependent atelectasis. LIVER, GALLBLADDER, AND BILIARY TREE: The liver is normal in size, shape, and attenuation. No focal hepatic lesion or biliary ductal dilatation is present. The gallbladder is unremarkable with no evidence of radiopaque gallstones, gallbladder wall thickening, or obvious pericholecystic inflammatory changes. PANCREAS: Unremarkable. SPLEEN: Unremarkable. ADRENAL GLANDS: Unremarkable. KIDNEYS AND URETERS: The kidneys are normal in size, shape, and attenuation. No hydronephrosis or hydroureter. No perinephric stranding. A punctate 1 mm nonobstructing calculus present within a calyx in the interpolar region of the right kidney. BLADDER: Bladder wall thickening and surrounding fat stranding are likely reactive to the adjacent colonic and pericolonic inflammation within the pelvis. GASTROINTESTINAL TRACT: The stomach, small bowel, and colon are normal in caliber. Within the left lower quadrant, there is a 15 cm segment of sigmoid colon with marked colonic wall thickening and mural stratification as well as pericolonic fat stranding. Foci of extraluminal gas are present in the surrounding soft tissues including within a ill-defined phlegmonous collection anterior to the sigmoid, most consistent with focal perforation. No significant intraperitoneal free air. The ill-defined heterogeneous region of gas containing soft tissue attenuation in the anterior aspect of the pelvis measures approximately 6.5 x 3.5 x 5.5 cm. No discrete drainable fluid components are identified in this region of phlegmon. There is a 3.5 cm cystlike collection adjacent to the left adnexa the left hemipelvis more posteriorly which does not have significant surrounding soft tissue inflammation and may be ovarian in nature. A small fluid collection is possible, but less likely. There is a tubular gas containing structure in the left adnexal region which may correspond to the involved fallopian tube. There are inflamed segments of small bowel in the central abdomen adjacent to the region of diverticulitis phlegmon. Appendix is normal. ABDOMINAL WALL: No significant hernia is appreciated. LYMPH NODES: Numerous borderline enlarged mesenteric and retroperitoneal nodes are identified, likely reactive in nature. VASCULAR: Abdominal aorta is normal in caliber. No atherosclerotic calcifications. No appreciable thrombosis. PELVIC VISCERA: Multiple nabothian cysts in the cervix. As above, there is a gas-containing, inflamed tubular structure in the left adnexal region which could correspond to a inflamed left fallopian tube. This extends from the region of the left ovary. As noted. There is 3.5 cm cystlike collection in this region which may correspond to ovarian cyst or an adjacent collection. No suspicious lesions. OSSEOUS STRUCTURES: Mild degenerative disc disease L5-S1. Minimal osteoarthritis in both hips. CT/CT abdomen pelvis w IV con IMPRESSION: 1. Acute sigmoid diverticulitis with focal perforation and a 6.5 cm phlegmonous collection in the anterior aspect of the pelvis. No discrete drainable fluid components are identified. 2. A 3.5 cm cystlike collection in the left adnexa may correspond to a left ovarian cyst. An abscess is possible, though less likely. Of note, there is an inflamed, tubular, gas-containing structure in the left adnexal region which may correspond to an inflamed fallopian tube due to secondary involvement from the aforementioned diverticulitis. 3. A 1 mm nonobstructing right renal calculus. Fleischner guidelines were followed. Electronically signed by: Austin Rivera MD 06/02/2024 11:55 PM EDT RP
[2024-06-02 18:07] VITALS: BP 148/104; PULSE 133; RESP 18; TEMP 36.6; O2SAT 97; BMI 40.3
--- NOTE | 2024-06-02 18:10 | ED_ITS ---
HPI - General Adult General Chief complaint: Abdominal Pain Stated complaint: abd pain Time Seen by Provider: 06/02/24 22:55 Source: patient Mode of arrival: ambulatory Limitations: no limitations History of Present Illness ED Provider: Dr. Anamaria Diaz HPI narrative: Patient comes to the emergency room complaining of left lower quadrant pain. Patient states that the pain has been present for several weeks, on and off. But today, the pain has been constant for about 7 hours. Patient states that she is usually to take some p.o. medication at home and the pain goes away but this time it is not getting better. Patient complaining of nausea, no vomiting or diarrhea. Patient has been hospitalized previously for diverticulitis with phlegmon. Patient denies chest pain or shortness of breath, no other symptoms. Related Data Home Medications ?Medication ?Instructions ?Recorded ?Confirmed levonorgestrel-ethinyl estradiol 1 tab PO BEDTIME 05/18/21 08/19/21 0.1 mg-20 mcg tablet (Sronyx) dicyclomine 10 mg capsule 1 cap PO BID PRN abdominal pain 07/30/21 08/19/21 psyllium husk 0.52 gram capsule 0 g PO 08/19/21 08/19/21 (Fiber Laxative (psyllium husk)) Previous Rx's ?Medication ?Instructions ?Recorded amoxicillin 500 mg-potassium 1 tab PO Q12H #14 tabs 08/09/21 clavulanate 125 mg tablet (Augmentin) Allergies Allergy/AdvReac Type Severity Reaction Status Date / Time No Known Allergies Allergy Verified 06/02/24 18:07 [No Known Allergies*] Review of Systems 2 Review of Systems: Constitutional : No Weight loss, No Fever, No Chills, No Night Sweats, No Fatigue, No Malaise ENT/Mouth : No Hearing loss, No Ear Pain, No Nasal Congestion, No Sinus Pain, No Hoarseness, No sore throat, No Rhinorrhea, No Swallowing Difficulty Eyes: No Eye Pain, No Swelling, No Redness, No Foreign Body, No Discharge, No Vision Changes Cardiovascular : No Chest Pain, No SOB, No Dyspnea on Exertion, No Orthopnea, No Edema, No Palpitations Respiratory : No Cough, No Sputum, No Wheezing, No Smoke Exposure, No Dyspnea Gastrointestinal : Complaining of Nausea, No Vomiting, No Diarrhea, No Constipation, complaining of left lower quadrant pain Genitourinary : no irregular bleeding, No Dysuria, No Urinary Frequency, No Hematuria, No Urinary Incontinence, No Urgency, No Flank Pain, No Urinary Flow Changes, No Hesitancy Musculoskeletal : No joint pain, No Myalgias, No Joint Swelling Skin : No Skin Lesions, No rash Neuro : No Weakness, No Numbness, No Paresthesias, No Loss of Consciousness, No Dizziness, No Headache Psych : No Anxiety/Panic, No Depression, No SI/HI/AH/VH, No Social Issues, Heme/Lymph: No Bruising, No Bleeding,No Lymphadenopathy Endocrine : No Polyuria, No Polydipsia, No Temperature Intolerance [facility] Past Medical History Medical History Morbid obesity Diverticulitis Social History Social History Household Members: Family Housing: House Do you presently have visiting nurse or other home services: No Patient Tobacco Use Status: Never used Tobacco Smoked in Last 30 Days: No Use of substances other than those prescribed or required for medical reasons: No Advance Directives: Yes Advance Directives on File: Yes Advance Directives Date on File: 07/30/21 Do you have a plan to hurt others: No Plan Patient : No service: No Current occupational status: employed Physical Exam ED Vital Signs: Vital Signs - 24 hr 06/02/24 18:07 06/02/24 22:57 Temperature 97.9 F Pulse Rate 133 H 116 H Respiratory Rate 18 18 Blood Pressure 148/104 H Pulse Oximetry 97 97 Oxygen Delivery Method Room Air BMI result Body Mass Index 40.3 Const Other: Appearance: Alert. Oriented X3. No acute distress. Well-appearing Eyes: Pupils equal, round and reactive to light. ENT: Pharynx normal. Neck: Normal inspection. Neck supple. No lymph nodes noted. No crepitus CVS: Normal heart rate and rhythm. Pulses normal. Normal S1 and S2 Respiratory: No respiratory distress. Breath sounds normal. No Wheezing. No rales Abdomen: Soft, tenderness to palpation in the left lower quadrant, mild discomfort to palpation over the suprapubic area. No rigidity. No distention. Skin: Skin warm and dry. Normal skin color. Normal skin turgor. Extremities: No lower extremity edema. No Lacerations. No Rash Neuro: Oriented X 3. No motor deficit. No sensory deficit. Moving all extremities. No slurred speech. CN 2 through 12 grossly intact Psych: calm, cooperative, normal affect Course Course Course Narrative: This is a rapid medical exam performed by Citlali Hollins NP: Additional HPI, ROS, PE not included below will be deferred to primary provider. Patient is a 29-year-old female with history of diverticulitis presenting with LLQ abdominal pain since this morning, states feels similar to prior diverticulitis. Tachycardic in triage. Plan: labs including cultures and lactic, UA Medications Administered Discontinued Medications Generic Name Dose Route Start Last Admin Trade Name Freq PRN Reason Stop Dose Admin Sodium Chloride 1,000 mls @ 999 mls/hr 06/02/24 23:05 06/02/24 23:14 Ns IVCONT 06/03/24 00:05 999 mls/hr .Q1H1M ONE Administration Iohexol 100 ml 06/02/24 23:35 06/02/24 23:36 Iohexol 350 Mg/Ml 100 Ml Infus..Btl IV 06/02/24 23:36 100 ml ONCE ONE Administration Morphine Sulfate 2 mg 06/02/24 23:05 06/02/24 23:14 Morphine Sulfate 2 Mg/Ml Cartridge IVPUSH 06/02/24 23:06 2 mg ONCE ONE Administration Protocol Ondansetron HCl 4 mg 06/02/24 23:05 06/02/24 23:14 Ondansetron Hcl 4 Mg/2 Ml Vial IVPUSH 06/02/24 23:06 4 mg ONCE ONE Administration Medical Decision Making Medical Decision Making [facility] Narrative: My interpretation of labs: White blood cell count 14.2, normal chemistry, chronically slightly elevated LFTs, hCG negative, lipase normal -patient receiving IV fluids, Zofran morphine for symptomatic treatment. -my interpretation of CT scan, no obvious sign of perforation. Radiology report: Diverticulitis with phlegmon -patient receiving IV fluids, levofloxacin and metronidazole -I discussed the patient with our hospitalist Dr. Jiménez and with Dr Almeida from surgery -patient will be admitted under the medicine service Differential Diagnosis Differential Diagnoses: The differential diagnosis associated with the presentation includes (Diverticulitis, UTI, pyelonephritis, ureterolithiasis) Admission/Observation Consideration of admission/observation: Escalation of care including admission/observation considered (Given patient's symptoms, admission/observation has been considered) Consult Healthcare Provider Management of the patient was discussed with: Hospitalist Lab Data MDM Lab Attestation statement: I reviewed the patient's lab results. 06/02/24 18:28 06/02/24 18:28 Labs: Lab Results 06/02/24 Range/Units 18:28 WBC 14.2 H (4.8-10.8) X10*3/uL RBC 4.99 (4.20-5.50) X10*6/uL Hgb 12.8 (12.0-16.0) g/dl Hct 39.7 (37.0-47.0) % MCV 79.6 L (80.0-98.0) fL MCH 25.7 L (27.0-33.0) pg MCHC 32.2 (31.0-35.0) g/dl RDW 13.9 (11.0-16.0) % Plt Count 472 H (160-400) X10*3/uL MPV 9.7 (9.4-12.3) fL Immature Gran % (Auto) 0.3 (0.0-0.4) % Neut % (Auto) 78.7 H (45-73) % Lymph % (Auto) 14.7 L (20-40) % [place] % (Auto) 5.9 (2-11) % Eos % (Auto) 0.1 (0-4) % Baso % (Auto) 0.3 (0-2) % Lymph # (Auto) 2.1 (1.2-4.9) X10*3/uL [place] # (Auto) 0.8 (0.1-1.2) X10*3/uL Eos # (Auto) 0.0 (0.0-0.4) X10*3/uL Baso # (Auto) 0.0 (0.0-0.2) X10*3/uL Abs Immat Gran (auto) 0.04 H (0.00-0.03) X10*3/uL Absolute Neuts (auto) 11.1 H (2.0-8.3) x10*3/uL Absolute Nucleated RBC 0.000 (0.0-0.012) X10*3/uL Nucleated RBC % (auto) 0.0 (0.0-0.2) /100WBC Sodium 138 (135-145) mmol/L Potassium 3.4 (3.3-5.1) mmol/L Chloride 103 (96-108) mmol/L Carbon Dioxide 24 (22-29) mmol/L Anion Gap 14 (12-20) BUN 10 (9-16) mg/dL Creatinine 0.82 (0.5-1.4) mg/dL Estim Creat Clear Calc 121.5 Estimated GFR > 60 Random Glucose 99 (60-115) mg/dL Lactic Acid 0.9 (0.5-2.0) mmol/L Calcium 9.6 D (8.4-10.2) mg/dL Total Bilirubin 0.4 (0.0-1.0) mg/dL AST 38 H (5-31) U/L ALT 51 H (0-31) U/L Alkaline Phosphatase 107 (39-117) U/L Total Protein 8.7 H (6.5-8.0) g/dL Albumin 3.9 (3.5-5.0) g/dL Lipase 16 (8-78) U/L Beta HCG, Quant < 2 mIU/mL Independent Interpretation I performed an independent interpretation of an: CT Scan Radiology Impression Discussion of test interpretation with radiology: I have reviewed the radiologist's reading. Radiologist Impression: FINDINGS: LUNG BASES: Mild dependent atelectasis. LIVER, GALLBLADDER, AND BILIARY TREE: The liver is normal in size, shape, and attenuation. No focal hepatic lesion or biliary ductal dilatation is present. The gallbladder is unremarkable with no evidence of radiopaque gallstones, gallbladder wall thickening, or obvious pericholecystic inflammatory changes. PANCREAS: Unremarkable. SPLEEN: Unremarkable. ADRENAL GLANDS: Unremarkable. KIDNEYS AND URETERS: The kidneys are normal in size, shape, and attenuation. No hydronephrosis or hydroureter. No perinephric stranding. A punctate 1 mm nonobstructing calculus present within a calyx in the interpolar region of the right kidney. BLADDER: Bladder wall thickening and surrounding fat stranding are likely reactive to the adjacent colonic and pericolonic inflammation within the pelvis. GASTROINTESTINAL TRACT: The stomach, small bowel, and colon are normal in caliber. Within the left lower quadrant, there is a 15 cm segment of sigmoid colon with marked colonic wall thickening and mural stratification as well as pericolonic fat stranding. Foci of extraluminal gas are present in the surrounding soft tissues including within a ill-defined phlegmonous collection anterior to the sigmoid, most consistent with focal perforation. No significant intraperitoneal free air. The ill-defined heterogeneous region of gas containing soft tissue attenuation in the anterior aspect of the pelvis measures approximately 6.5 x 3.5 x 5.5 cm. No discrete drainable fluid components are identified in this region of phlegmon. There is a 3.5 cm cystlike collection adjacent to the left adnexa the left hemipelvis more posteriorly which does not have significant surrounding soft tissue inflammation and may be ovarian in nature. A small fluid collection is possible, but less likely. There is a tubular gas containing structure in the left adnexal region which may correspond to the involved fallopian tube. There are inflamed segments of small bowel in the central abdomen adjacent to the region of diverticulitis phlegmon. Appendix is normal. ABDOMINAL WALL: No significant hernia is appreciated. LYMPH NODES: Numerous borderline enlarged mesenteric and retroperitoneal nodes are identified, likely reactive in nature. VASCULAR: Abdominal aorta is normal in caliber. No atherosclerotic calcifications. No appreciable thrombosis. PELVIC VISCERA: Multiple nabothian cysts in the cervix. As above, there is a gas-containing, inflamed tubular structure in the left adnexal region which could correspond to a inflamed left fallopian tube. This extends from the region of the left ovary. As noted. There is 3.5 cm cystlike collection in this region which may correspond to ovarian cyst or an adjacent collection. No suspicious lesions. OSSEOUS STRUCTURES: Mild degenerative disc disease L5-S1. Minimal osteoarthritis in both hips. CT/CT abdomen pelvis w IV con IMPRESSION: 1. Acute sigmoid diverticulitis with focal perforation and a 6.5 cm phlegmonous collection in the anterior aspect of the pelvis. No discrete drainable fluid components are identified. 2. A 3.5 cm cystlike collection in the left adnexa may correspond to a left ovarian cyst. An abscess is possible, though less likely. Of note, there is an inflamed, tubular, gas-containing structure in the left adnexal region which may correspond to an inflamed fallopian tube due to secondary involvement from the aforementioned diverticulitis. 3. A 1 mm nonobstructing right renal calculus. Fleischner guidelines were followed. Critical Care Time Critical Care Time Critical Care Time: Yes Total Critical Care Time: 60 Attestation: I have personally provided critical care time. Time includes review of lab data, radiology results, discussion with consultants, and monitoring for potential decompensation. Intervention performed as documented. Discharge Plan Discharge Clinical Impression: Diverticulitis Patient Disposition: Admitted As Inpatient Prescriptions: No Action dicyclomine 10 mg capsule 1 cap PO BID PRN (Reason: abdominal pain) amoxicillin-pot clavulanate [Augmentin] 500-125 mg tablet 1 tab PO Q12H Qty: 14 0RF levonorgestrel-ethinyl estrad [Sronyx] 0.1-20 mg-mcg tablet 1 tab PO BEDTIME psyllium husk [Fiber Laxative (psyllium husk)] 0.52 gram capsule 0 g PO Print Language: Marshallese
[2024-06-02 18:33] LABS: MANUAL DIFF FLAG NO
[2024-06-02 18:34] LABS: Basophils Percent Auto 0.3 % (0-2); Eosinophils Percent Auto 0.1 % (0-4); Hematocrit 39.7 % (37.0-47.0); Hemoglobin 12.8 g/dl (12.0-16.0); Imm Gran Abs Auto 0.04 X10*3/uL (0.00-0.03); Imm Gran Pct Auto 0.3 % (0.0-0.4); Lymphocytes Absolute Auto 2.1 X10*3/uL (1.2-4.9); Lymphocytes Percent Auto 14.7 % (20-40); Mean Corpuscular HGB Conc 32.2 g/dl (31.0-35.0); Mean Corpuscular Hemoglobin 25.7 pg (27.0-33.0); Mean Corpuscular Volume 79.6 fL (80.0-98.0); Mean Platelet Volume 9.7 fL (9.4-12.3); Monocytes Absolute Auto 0.8 X10*3/uL (0.1-1.2); Monocytes Percent Auto 5.9 % (2-11); Neutrophils Absolute Auto 11.1 x10*3/uL (2.0-8.3); Neutrophils Percent Auto 78.7 % (45-73); Platelet Count 472 X10*3/uL (160-400); Red Blood Count 4.99 X10*6/uL (4.20-5.50); Red Cell Distribution Width 13.9 % (11.0-16.0); White Blood Count 14.2 X10*3/uL (4.8-10.8)
[2024-06-02 18:45] LABS: Lactic Acid 0.9 mmol/L (0.5-2.0)
[2024-06-02 18:56] LABS: Alanine Aminotransferase 51 U/L (0-31); Albumin Level 3.9 g/dL (3.5-5.0); Alkaline Phosphatase 107 U/L (39-117); Anion Gap 14 (12-20); Aspartate Amino Transferase 38 U/L (5-31); Bilirubin Total 0.4 mg/dL (0.0-1.0); Blood Urea Nitrogen 10 mg/dL (9-16); Calcium 9.6 mg/dL (8.4-10.2); Carbon Dioxide 24 mmol/L (22-29); Chloride 103 mmol/L (96-108); Creatinine Clr Calc Pharmacy 121.5; Estimated Glomerular Filt Rate > 60; Glucose Random 99 mg/dL (60-115); Potassium 3.4 mmol/L (3.3-5.1); Sodium 138 mmol/L (135-145); Total Protein 8.7 g/dL (6.5-8.0)
[2024-06-02 18:57] LABS: HCG Quantitative < 2 mIU/mL
[2024-06-02 22:57] VITALS: PULSE 116; RESP 18; O2SAT 97
[2024-06-02 23:08] LABS: Lipase 16 U/L (8-78)
[2024-06-02] MEDS: 0.9 % Sodium Chloride 1,000 ML 999 ML IVCONT (23:14)
[2024-06-02] MEDS: Morphine Sulfate 2 MG/ML CARTRIDGE IVPUSH (23:14)
[2024-06-02] MEDS: ondansetron HCL 4 MG/2 ML VIAL IVPUSH (23:14)
[2024-06-02] MEDS: iohexoL 350 MG/ML 100 ML INFUS..BTL IV (23:36)
[2024-06-03] VITALS (8 sets, daily range): BP systolic 119–143; BP diastolic 78–88; PULSE 90–102; RESP 16–20; TEMP 36.2–37.1; O2SAT 95–99
[2024-06-03] MEDS: metroNIDAZOLE/NS 500 MG/100 ML PIGGYBACK 100 MG IV (00:45)
--- NOTE | 2024-06-03 01:25 | P.HPHOSP_ITS ---
History of Present Illness Date of Service: 06/03/24 Chief Complaint: llq pain 29F PMH recurrent sigmoid diverticulitis, obesity, presented with LLQ abd pain. pain has been ongoing for about 1 month. worsening over last few days, a/w loose stools, decreased appetite. in 2020 had similar symptoms with sigmoid divericulitis with phelgmon treated with prolonged course antibiotics. has been mostly asymptomatic in between. in ED, cT abd with Acute sigmoid diverticulitis with focal perforation and a 6.5 cm phlegmonous collection in the anterior aspect of the pelvis. Review of Systems 2 Review of Systems: Yes all other systems are reviewed and are negative [facility] Medical History Morbid obesity Diverticulitis Social History Household Members: Family Housing: House Do you presently have visiting nurse or other home services: No Patient Tobacco Use Status: Never used Tobacco Smoked in Last 30 Days: No Use of substances other than those prescribed or required for medical reasons: No Advance Directives: Yes Advance Directives on File: Yes Advance Directives Date on File: 07/30/21 Do you have a plan to hurt others: No Plan Patient : No service: No Current occupational status: employed Meds Allergies Allergy/AdvReac Type Severity Reaction Status Date / Time No Known Allergies Allergy Verified 06/02/24 18:07 [No Known Allergies*] Active Medications: Current Medications Levofloxacin (Levaquin) 750 mg in 150 mls @ 100 mls/hr IV ONCE ONE Stop: 06/03/24 01:41 Norepinephrine Bitartrate (Levophed) 8 mg in 250 mls @ 0 mls/hr IVCONT .Q0M [facility]; Protocol Home Medications ?Medication ?Instructions ?Recorded ?Confirmed ?Last Taken ?Type levonorgestrel-ethinyl estradiol 1 tab PO BEDTIME 05/18/21 08/19/21 07/29/21 History 0.1 mg-20 mcg tablet (Sronyx) dicyclomine 10 mg capsule 1 cap PO BID PRN abdominal pain 07/30/21 08/19/21 Unknown History psyllium husk 0.52 gram capsule 0 g PO 08/19/21 08/19/21 Unknown History (Fiber Laxative (psyllium husk)) Physical Exam 2 Vital Signs and Narrative: Vital Signs: Last Vital Signs Temp 97.9 F 06/02/24 18:07 Pulse 116 H 06/02/24 22:57 Resp 18 06/02/24 22:57 BP 148/104 H 06/02/24 18:07 Pulse Ox 97 06/02/24 22:57 O2 Del Method Room Air 06/02/24 18:07 BMI result Body Mass Index 40.3 General: AO X 3, no acute distress Resp: CTA bilateral, no accessory muscles used CVS: S1,S2,RRR GI: soft, llq tender, non distended Neuro: motor grossly intact, alert Psych: appropriate affect, appropriate insight Results Labs 06/02/24 18:28 06/02/24 18:28 Labs: Laboratory Results - last 24 hr 06/02/24 18:28 MCV 79.6 L MCH 25.7 L MCHC 32.2 RDW 13.9 Plt Count 472 H MPV 9.7 Immature Gran % (Auto) 0.3 Neut % (Auto) 78.7 H Lymph % (Auto) 14.7 L [place] % (Auto) 5.9 Eos % (Auto) 0.1 Baso % (Auto) 0.3 Lymph # (Auto) 2.1 [place] # (Auto) 0.8 Eos # (Auto) 0.0 Baso # (Auto) 0.0 Abs Immat Gran (auto) 0.04 H Absolute Neuts (auto) 11.1 H Absolute Nucleated RBC 0.000 Nucleated RBC % (auto) 0.0 Anion Gap 14 Estim Creat Clear Calc 121.5 Estimated GFR > 60 Random Glucose 99 Lactic Acid 0.9 Calcium 9.6 D Total Bilirubin 0.4 AST 38 H ALT 51 H Alkaline Phosphatase 107 Total Protein 8.7 H Albumin 3.9 Lipase 16 Beta HCG, Quant < 2 Imaging Radiologist's Impressions: Impressions Abdomen/Pelvis CT 06/02/24 23:15 IMPRESSION: 1. Acute sigmoid diverticulitis with focal perforation and a 6.5 cm phlegmonous collection in the anterior aspect of the pelvis. No discrete drainable fluid components are identified. 2. A 3.5 cm cystlike collection in the left adnexa may correspond to a left ovarian cyst. An abscess is possible, though less likely. Of note, there is an inflamed, tubular, gas-containing structure in the left adnexal region which may correspond to an inflamed fallopian tube due to secondary involvement from the aforementioned diverticulitis. 3. A 1 mm nonobstructing right renal calculus. Fleischner guidelines were followed. Electronically signed by: Austin Rivera MD 06/02/2024 11:55 PM EDT RP Assessment and Plan (1) Diverticulitis of large intestine with complication: Status: Acute Plan 29F PMH recurrent sigmoid diverticulitis, obesity, presented with LLQ abd pain acute recurrent sigmoid diverticulitis with local perforation and phlegmon d/w surgery, iv abx for now gen surg eval pain control, ivf obesity weight loss recommended low risk dvt - early ambulation full code patient with significant diveritulitis, requiring prolonged iv abx and possible surgical intervention, therefore, expected to require atleast 2 midnights inpatient Quality Stroke Does the patient have a stroke diagnosis?: No VTE Prior VTE?: No VTE Risk Level:: Medical - low VTE Device Contraindication: Treatment Not Indicated VTE Drug Contraindication: Treatment Not Indicated
[2024-06-03] MEDS: levoFLOXacin/D5W 750 MG/150 ML PIGGYBACK 100 MG IV (01:44)
[2024-06-03] MEDS: 0.9 % Sodium Chloride 1,000 ML 80 ML IVCONT ×2 (03:17→14:41)
--- NOTE | 2024-06-03 07:13 | PC.NURSE ---
Surgical consult at bedside
[2024-06-03] MEDS: Morphine Sulfate 2 MG/ML CARTRIDGE IVPUSH ×3 (08:07→19:43)
--- NOTE | 2024-06-03 08:07 | PM.CNGS ---
History of Present Illness Consult details Consult date: 06/03/24 Reason for consult: abdominal pain Requesting physician: Leland Jiménez Narrative: Kaya Chadwick 29 year old female with PMH of diverticulitis who presented to the ED with complaints of acute onset of lower abdominal pain. The pain is in the left lower abdomen and suprapubic area. It began yesterday and was severe in nature. Due to the severity of pain, she presented to the ED for evaluation. Work up in the ED included CBC, BMP, LFTs which was significant for a leukocytosis of 14.[address] scan abd/pelvis showed sigmoid diverticulitis with a large phlegmonous collection in the anterior pelvis. She reports multiple prior episodes of diverticulitis with two requiring admission here in 07/29 for IV abx. She reports she had been doing well since that time without any episodes. She had a colonoscopy in 2020 which showed calderon diverticulosis. She denies fever, chills, nausea, vomiting, diarrhea, blood in stool, dysuria, hematuria, pneumaturia, vaginal drainage. Review of Systems Constitutional: Constitutional: Denies chills and Denies fever(s) ENT: Denies dizziness Cardiovascular: Cardiovascular: Denies chest pain and Denies dyspnea Respiratory: Respiratory: Denies cough and Denies dyspnea Gastrointestinal: Gastrointestinal: Reports as per HPI Genitourinary: Genitourinary: Reports as per HPI Integumentary/Breasts: Skin/Breast: Denies rash and Denies jaundice Neurologic: Denies dizziness PMFSH Past Medical History Medical History Morbid obesity Diverticulitis Social History Social History Household Members: Family Housing: House Do you presently have visiting nurse or other home services: No Patient Tobacco Use Status: Never used Tobacco Smoked in Last 30 Days: No Use of substances other than those prescribed or required for medical reasons: No Advance Directives: Yes Advance Directives on File: Yes Advance Directives Date on File: 07/30/21 Do you have a plan to hurt others: No Plan Patient : No service: No Current occupational status: employed Meds Allergies Allergy/AdvReac Type Severity Reaction Status Date / Time No Known Allergies Allergy Verified 06/02/24 18:07 [No Known Allergies*] Active Medications: Current Medications Acetaminophen (Acetaminophen 325 Mg Tablet) 650 mg PO Q6H PRN PRN Reason: Pain, Mild (Pain Scale 1-3), fever or headache Calcium Carbonate (Calcium Carbonate 750 Mg Tab.Chew) 750 mg PO Q4H PRN PRN Reason: Heartburn Levofloxacin (Levaquin) 750 mg in 150 mls @ 100 mls/hr IV ONCE ONE Stop: 06/04/24 02:51 Metronidazole (Flagyl) 500 mg in 100 mls @ 100 mls/hr IV Q12H [facility] Sodium Chloride (Ns) 1,000 mls @ 80 mls/hr IVCONT .[id number] [facility] Last Admin: 06/03/24 03:17 Dose: 80 mls/hr Magnesium Hydroxide (Milk Of Magnesia 30 Ml Oral.Susp) 30 ml PO DAILY PRN PRN Reason: Constipation Melatonin (Melatonin 3 Mg Tablet) 6 mg PO BEDTIME PRN PRN Reason: Insomnia Morphine Sulfate (Morphine Sulfate 2 Mg/Ml Cartridge) 2 mg IVPUSH Q3H PRN; Protocol PRN Reason: moderate pain Sodium Chloride (0.9 % Sodium Chloride Flush 3 Ml Syringe) 3 ml IVFLUSH QSHIFT [facility] Last Admin: 06/03/24 07:02 Dose: Not Given Home Medications ?Medication ?Instructions ?Recorded ?Confirmed ?Last Taken ?Type levonorgestrel-ethinyl estradiol 1 tab PO BEDTIME 05/18/21 08/19/21 07/29/21 History 0.1 mg-20 mcg tablet (Sronyx) dicyclomine 10 mg capsule 1 cap PO BID PRN abdominal pain 07/30/21 08/19/21 Unknown History psyllium husk 0.52 gram capsule 0 g PO 08/19/21 08/19/21 Unknown History (Fiber Laxative (psyllium husk)) Physical Exam Vital Signs: Vital Signs: Last Vital Signs Temp 98.5 F 06/03/24 06:12 Pulse 97 06/03/24 06:12 Resp 16 06/03/24 06:12 BP 119/78 06/03/24 06:12 Pulse Ox 95 06/03/24 06:12 O2 Del Method Room Air 06/03/24 06:12 BMI result Body Mass Index 40.3 Const: General: comfortable, no acute distress and alert Orientation/consciousness: patient oriented x3 Resp: Effort & Inspection: normal respiratory effort Cardio: Rate: regular rate GI: Other: corpulent abdomen Inspection: No distended Palpation (GI): Soft to palpation, Tenderness to palpation present (GI) (moderate LLQ/suprapubic tenderness), no guarding and not rigid Percussion: Yes normal to percussion Skin: General skin exam: no rashes or lesions noted and no jaundice Neuro: General: patient oriented x3 and moves all extremities Results Labs 06/02/24 18:28 06/02/24 18:28 Labs: Abnormal lab results 06/02/24 Range/Units 18:28 WBC 14.2 H (4.8-10.8) X10*3/uL MCV 79.6 L (80.0-98.0) fL MCH 25.7 L (27.0-33.0) pg Plt Count 472 H (160-400) X10*3/uL Neut % (Auto) 78.7 H (45-73) % Lymph % (Auto) 14.7 L (20-40) % Abs Immat Gran (auto) 0.04 H (0.00-0.03) X10*3/uL Absolute Neuts (auto) 11.1 H (2.0-8.3) x10*3/uL AST 38 H (5-31) U/L ALT 51 H (0-31) U/L Total Protein 8.7 H (6.5-8.0) g/dL Short CBC 06/02/24 Range/Units 18:28 WBC 14.2 H (4.8-10.8) X10*3/uL Hgb 12.8 (12.0-16.0) g/dl Hct 39.7 (37.0-47.0) % Plt Count 472 H (160-400) X10*3/uL BMP 06/02/24 18:28 Sodium 138 Potassium 3.4 Chloride 103 Carbon Dioxide 24 BUN 10 Creatinine 0.82 Calcium 9.6 D Liver Function 06/02/24 Range/Units 18:28 Total Bilirubin 0.4 (0.0-1.0) mg/dL AST 38 H (5-31) U/L ALT 51 H (0-31) U/L Alkaline Phosphatase 107 (39-117) U/L Albumin 3.9 (3.5-5.0) g/dL All other labs normal. Imaging Abdomen CT scan report/results: report reviewed and image reviewed Assessment and Plan (1) Diverticulitis of large intestine with complication: Status: Acute Plan 29 year old female with PMH of diverticulitis with acute onset of LLQ/suprapubic pain for 1 day with leukocytosis and CT scan demonstrating sigmoid diverticulitis with large phlegmon of anterior pelvis. There appears to be no discrete fluid components amenable to drainage. She is non toxic appearing with moderate LLQ/suprapubic tenderness but no peritoneal signs. Therefore I think it is reasonable to continue nonoperative measures for now with IV abx, IVF, PRN analgesics. Will did discuss possible need for laparotomy and sigmoid resection, ostomy if she worsens or has no significant improvement. She would like to avoid this. We also discussed eventual sigmoid resection down the line to prevent recurrence if this current episode resolves. She is in agreement with plan. Further plan dependent on clinical course. Will follow closely. Procedures Date of Service Date of Service: 06/03/24
--- NOTE | 2024-06-03 09:58 | PHA.MEDREC ---
Addendum entered by Makenna Scott RPh 06/03/24 11:42: Med rec was reviewed by Juliana. Original Note: Pharmacy Consult ? Medication Reconciliation Pharmacy has completed the medication reconciliation. Patient states she isn't on any medications.
--- NOTE | 2024-06-03 11:41 | MHC.CM.PN ---
PT REPORTS SHE LIVES WITH HER SISTER AND IS INDEPENDENT WITH CARE SHE HAS NO SERVICES AND NO DME SHE DECLINES TO COMPLETE A HCP AND HAS NO PCP - LIST PROVIDED DCP: HOME NO SERVICES VIA PRIVATE TRANSPORT
--- NOTE | 2024-06-03 15:30 | P.EN_ITS ---
Event Note Date of Service: 06/03/24 Event Note: This patient is seen and examined still has abd pain no fevers Physical exam and assessment and plan coordinated in h&P note, Agree with the plan in addition: acute recurrent sigmoid diverticulitis with local perforation and phlegmon- continue IV antibiotics Surgery following Time Spent With Patient Time: Total time managing care of this patient today ____ minutes.
[2024-06-03] MEDS: 0.9 % Sodium Chloride Flush 3 ML SYRINGE IVFLUSH (19:44)
[2024-06-03 20:17] LABS: Appearance Urine Clear; Color Urine Yellow; Glucose Urine UA Negative (Negative); Leukocyte Esterase Urine Trace (Negative); Nitrite Urine Negative (Negative); PH 5.5 (5.0-9.0); Specific Gravity - Urine 1.015 (1.005-1.025); UMIC TRIGGER UACC YES; Urine Blood Negative (Negative); Urine Ketones 80 mg/dL (Negative); Urine Protein Negative (Neg-Trace)
[2024-06-03 20:22] LABS: Bacteria Urine None Seen (None Seen); RBC Urine 0-2 /HPF (0-2); Squamous Epithelial Cell Urine 0-2 /HPF (0-2); WBC Urine 0-5 /HPF (0-5)
[2024-06-04] MEDS: levoFLOXacin/D5W 750 MG/150 ML PIGGYBACK 100 MG IV (01:50)
[2024-06-04 03:23] VITALS: BP 131/86; PULSE 83; RESP 18; TEMP 36.2; O2SAT 97
[2024-06-04] MEDS: 0.9 % Sodium Chloride 1,000 ML 80 ML IVCONT (04:39)
[2024-06-04] MEDS: Morphine Sulfate 2 MG/ML CARTRIDGE IVPUSH (06:17)
[2024-06-04 06:30] LABS: Hemoglobin 10.7 g/dl (12.0-16.0); Mean Corpuscular HGB Conc 31.5 g/dl (31.0-35.0); Mean Corpuscular Hemoglobin 25.6 pg (27.0-33.0); Mean Corpuscular Volume 81.3 fL (80.0-98.0); Mean Platelet Volume 10.1 fL (9.4-12.3); Platelet Count 396 X10*3/uL (160-400); Red Blood Count 4.18 X10*6/uL (4.20-5.50); Red Cell Distribution Width 13.4 % (11.0-16.0); White Blood Count 7.4 X10*3/uL (4.8-10.8)
[2024-06-04 06:46] LABS: Anion Gap 14 (12-20); Blood Urea Nitrogen 8 mg/dL (9-16); Calcium 8.9 mg/dL (8.4-10.2); Carbon Dioxide 23 mmol/L (22-29); Chloride 104 mmol/L (96-108); Creatinine Clr Calc Pharmacy 142.4; Estimated Glomerular Filt Rate > 60; Glucose Fasting 72 mg/dL (60-99); Potassium 3.5 mmol/L (3.3-5.1); Sodium 137 mmol/L (135-145)
--- NOTE | 2024-06-04 07:07 | HO.STUDENTPN ---
Subjective Subjective Date of Service: 06/04/24 <[facility] Last Filed: 06/04/24 07:19> 06/04/24 <Lynsdey Lawson PA-C - Last Filed: 06/04/24 07:57> 06/04/24 <Jw Almeida MD - Last Filed: 06/04/24 09:56> Interval History: Feels improved this morning. Pain is intermittent and severity of pain has improved. Denies nausea. Passing flatus. <Lyndsey Lawson PA-C - Last Filed: 06/04/24 07:57> Constitutional Constitutional: Reports no additional constitutional complaints, Denies chills, Denies night sweats and Denies weakness <[facility] Last Filed: 06/04/24 07:19> Eyes Eyes: Reports no additional eye complaints <[facility] Last Filed: 06/04/24 07:19> ENT Ears, Nose, Mouth, and Throat: Reports system reviewed and no additional complaints, except as documented <[facility] Last Filed: 06/04/24 07:19> Cardiovascular Cardiovascular: Reports no additional cardiovascular complaints, Denies chest pain and Denies rapid heart rate <[facility] Last Filed: 06/04/24 07:19> Respiratory Respiratory: Reports no additional respiratory complaints [place] Filed: 06/04/24 07:19> Gastrointestinal Gastrointestinal: Reports abdominal pain (LLQ), Denies bloating, Denies heartburn, Denies nausea and Denies vomiting <[facility] Last Filed: 06/04/24 07:19> Genitourinary Genitourinary: Reports no additional female genitourinary complaints, Denies difficulty voiding, Denies dysuria and Denies flank pain <[facility] Last Filed: 06/04/24 07:19> Musculoskeletal Musculoskeletal: Reports no additional musculoskeletal complaints <[facility] Filed: 06/04/24 07:19> Integumentary/Breasts Skin/Breast: Reports no additional skin complaints <[facility] Last Filed: 06/04/24 07:19> Neurologic Neurologic: Reports system reviewed and no additional complaints, except as documented and Denies weakness <[facility] Last Filed: 06/04/24 07:19> Psychiatric Psychiatric: Reports no additional psychiatric complaints <[facility] Last Filed: 06/04/24 07:19> Physical Exam Vital Signs: Vital Signs: Last Vital Signs Temp 97.1 F 06/04/24 03:23 Pulse 83 06/04/24 03:23 Resp 18 06/04/24 03:23 BP 131/86 06/04/24 03:23 Pulse Ox 97 06/04/24 03:23 O2 Del Method Room Air 06/04/24 03:23 BMI result Body Mass Index 40.3 <[facility] Last Filed: 06/04/24 07:19> Remains afebrile w/o antipyretics HR 83-97, BP 119/78-143/88, 95-99% on RA <[facility] Last Filed: 06/04/24 07:19> Const: General: cooperative, no acute distress, alert and awake <[facility] Filed: 06/04/24 07:19> Orientation/consciousness: patient oriented x3 <[facility] Filed: 06/04/24 07:19> HEENT: Head: Yes normocephalic and Yes atraumatic <[facility] Last Filed: 06/04/24 07:19> Ears: hearing grossly normal bilaterally and external ears normal <[facility] Filed: 06/04/24 07:19> Face and sinus: Yes face symmetric <[facility] Last Filed: 06/04/24 07:19> Eyes: General: appearance normal, both eyes and all related structures <[facility] [employer] Filed: 06/04/24 07:19> Conjunctivae: conjunctivae normal <[facility] [employer] Filed: 06/04/24 07:19> Sclerae: sclerae normal <[facility] Filed: 06/04/24 07:19> EOM: EOMs intact bilaterally <[facility] [employer] Last Filed: 06/04/24 07:19> Neck: Neck: Yes full ROM and Yes no JVD <[facility] [employer] Last Filed: 06/04/24 07:19> Resp: Effort & Inspection: normal respiratory effort and symmetric chest movement <[facility] Filed: 06/04/24 07:19> Auscultation: clear to auscultation bilaterally, no crackles, no rales, no rhonchi and no wheezes <[facility] Filed: 06/04/24 07:19> Cardio: Jugular venous distension: no JVD <[facility] Filed: 06/04/24 07:19> Rate: regular rate <[facility] Filed: 06/04/24 07:19> Rhythm: regular rhythm <[facility] Filed: 06/04/24 07:19> Heart sounds: S1 normal heart sound present, S2 normal heart sound present, no gallops, no murmurs and no rubs <[facility] Filed: 06/04/24 07:19> Peripheral pulses: Peripheral pulses 2+ throughout <[facility] Filed: 06/04/24 07:19> GI: Inspection: Yes normal to inspection and No distended <[facility] Filed: 06/04/24 07:19> Palpation (GI): Soft to palpation, Tenderness to palpation present (GI) in the LLQ and in the RLQ; with no rebound tenderness, Guarding due to palpation present (GI) in the LLQ, No hepatosplenomegaly present and no masses <[facility] Filed: 06/04/24 07:19> Auscultation: normoactive bowel sounds <[facility] Filed: 06/04/24 07:19> : General: Yes bladder normal to palpation and Yes no CVA tenderness <[facility] Filed: 06/04/24 07:19> Bimanual exam- vagina & uterus: bladder normal to palpation <[facility] Filed: 06/04/24 07:19> Back/Spine/Pelvis: Back: no CVA tenderness <[facility] Filed: 06/04/24 07:19> Skin: General skin exam: no rashes or lesions noted <[facility] Filed: 06/04/24 07:19> Neuro: General: patient oriented x3 <Tata Holliday - Last Filed: 06/04/24 07:19> Extrem: General: Yes capillary refill normal, Yes no pedal edema and Yes no calf tenderness <Tata Yates - Last Filed: 06/04/24 07:19> Objective Data Active Medications Acetaminophen (Acetaminophen 325 Mg Tablet) 650 mg PO Q6H PRN PRN Reason: Pain, Mild (Pain Scale 1-3), fever or headache Calcium Carbonate (Calcium Carbonate 750 Mg Tab.Chew) 750 mg PO Q4H PRN PRN Reason: Heartburn Metronidazole (Flagyl) 500 mg in 100 mls @ 100 mls/hr IV Q12H [facility] Sodium Chloride (Ns) 1,000 mls @ 80 mls/hr IVCONT .[id number] [facility] Last Admin: 06/04/24 04:39 Dose: 80 mls/hr Documented By: BOUBACAR Magnesium Hydroxide (Milk Of Magnesia 30 Ml Oral.Susp) 30 ml PO DAILY PRN PRN Reason: Constipation Melatonin (Melatonin 3 Mg Tablet) 6 mg PO BEDTIME PRN PRN Reason: Insomnia Morphine Sulfate (Morphine Sulfate 2 Mg/Ml Cartridge) 2 mg IVPUSH Q3H PRN; Protocol PRN Reason: moderate pain Last Admin: 06/04/24 06:17 Dose: 2 mg Documented By: BOUBACAR Sodium Chloride (0.9 % Sodium Chloride Flush 3 Ml Syringe) [facility] Last Admin: 06/03/24 19:44 Dose: 3 ml Documented By: BOUBACAR <Tata [facility] - Last Filed: 06/04/24 07:19> Labs CBC & Chem 7: 06/04/24 05:35 06/04/24 05:35 <Tata [facility] Last Filed: 06/04/24 07:19> Labs: Laboratory Results - last 24 hr 06/03/24 06/04/24 Unknown 05:35 MCV 81.3 MCH 25.6 L MCHC 31.5 RDW 13.4 Plt Count 396 MPV 10.1 Absolute Nucleated RBC 0.000 Nucleated RBC % (auto) 0.0 Anion Gap 14 Estim Creat Clear Calc 142.4 Estimated GFR > 60 Fasting Glucose 72 Calcium 8.9 D Urine Color Yellow Urine Appearance Clear Urine pH 5.5 Ur Specific [place] 1.015 Urine Protein Negative Urine Glucose (UA) Negative Urine Ketones 80 Urine Blood Negative Urine Nitrite Negative Ur Leukocyte Esterase Trace H Urine RBC 0-2 Urine WBC 0-5 Ur Squamous Epith Cells 0-2 Urine Bacteria None Seen Hyaline Casts 3-5 <Tata Yates - Last Filed: 06/04/24 07:19> Microbiology Microbiology Results: Microbiology 06/02/24 18:28 Blood Culture - Preliminary Blood - Venous No growth after 24 hours. 06/02/24 18:28 Blood Culture - Preliminary Blood - Venous No growth after 24 hours. <Tata Yates - Last Filed: 06/04/24 07:19> Assessment and Plan (1) Diverticulitis of large intestine with complication: Status: Acute <Tata Yates - Last Filed: 06/04/24 07:19> Assessment and Plan: Pt complaints of LLQ pain, unimproved from yesterday, 06/18 improving to 6/10 with morphine No n/v/d WBC improved from 14.2 -> 7.4 on levofloxacin Hb from 12.8 -> 10.7 today with mcv 81.3 Plan: -Pain control: Morphine 2 mg q3hr for severe pain -Levofloxacin 750 mg -NPO with 1L NS q12hrs -Schedule f/u colonoscopy in 6-8 weeks and discussion of sigmoid resection <Tata Yates - Last Filed: 06/04/24 07:19> Pt complaints of LLQ pain, unimproved from yesterday, 06/18 improving to 6/10 with morphine No n/v/d WBC improved from 14.2 -> 7.4 on levofloxacin Hb from 12.8 -> 10.7 today with mcv 81.3 Plan: -Pain control: Morphine 2 mg q3hr for severe pain -Levofloxacin 750 mg -NPO with 1L NS q12hrs -Schedule f/u colonoscopy in 6-8 weeks and discussion of sigmoid resection Seen independently of Tata Yates, MS-3. She reports feeling improved this morning with less severity. Her abdominal exam is improved with less tenderness, mild LLQ tenderness to deep palpation this morning. No peritoneal signs. Her WBC has normalized. Improving with nonoperative measures. Continue IV abx. Will advance to clear liquids. Bowel regimen. <Lyndsey Lawson PA-C - Last Filed: 06/04/24 07:57> Pt complaints of LLQ pain, unimproved from yesterday, 9/10 improving to 6/10 with morphine No n/v/d WBC improved from 14.2 -> 7.4 on levofloxacin Hb from 12.8 -> 10.7 today with mcv 81.3 Plan: -Pain control: Morphine 2 mg q3hr for severe pain -Levofloxacin 750 mg -NPO with 1L NS q12hrs -Schedule f/u colonoscopy in 6-8 weeks and discussion of sigmoid resection Seen independently of Tata Yates, MS-3. She reports feeling improved this morning with less severity. Her abdominal exam is improved with less tenderness, mild LLQ tenderness to deep palpation this morning. No peritoneal signs. Her WBC has normalized. Improving with nonoperative measures. Continue IV abx. Will advance to clear liquids. Bowel regimen. As noted above <Jw Almeida MD - Last Filed: 06/04/24 09:56> Quality Stroke Does the patient have a stroke diagnosis?: No <Tata Yates - Last Filed: 06/04/24 07:19> VTE Prior VTE?: No <Tata Yates - Last Filed: 06/04/24 07:19> VTE Risk Level:: Medical - low <Tata Yates - Last Filed: 06/04/24 07:19> VTE Device Contraindication: Treatment Not Indicated <Tata Yates - Last Filed: 06/04/24 07:19> VTE Drug Contraindication: Treatment Not Indicated <Tata Yates - Last Filed: 06/04/24 07:19>
[2024-06-04 08:00] VITALS: BP 130/83; PULSE 81; RESP 18; TEMP 36.6; O2SAT 98
[2024-06-04] MEDS: metroNIDAZOLE/NS 500 MG/100 ML PIGGYBACK 100 MG IV ×2 (09:12→21:36)
--- NOTE | 2024-06-04 11:47 | P.PNIM_ITS ---
Subjective Subjective Date of Service: 06/04/24 Interval History: abd pain Review of Systems abd pain seems similar no fever or chills Physical Exam 2 Vital Signs: Vital Signs: Last Vital Signs Temp 97.9 F 06/04/24 08:00 Pulse 81 06/04/24 08:00 Resp 18 06/04/24 08:00 BP 130/83 06/04/24 08:00 Pulse Ox 98 06/04/24 08:00 O2 Del Method Room Air 06/04/24 08:00 BMI result Body Mass Index 40.3 General: AO X 3, no acute distress Resp: CTA bilateral, no accessory muscles used CVS: S1,S2,RRR GI: soft, llq tender, non distended Neuro: motor grossly intact, alert Psych: appropriate affect, appropriate insight Objective Data Active Medications Acetaminophen (Acetaminophen 325 Mg Tablet) 650 mg PO Q6H PRN PRN Reason: Pain, Mild (Pain Scale 1-3), fever or headache Calcium Carbonate (Calcium Carbonate 750 Mg Tab.Chew) 750 mg PO Q4H PRN PRN Reason: Heartburn Metronidazole (Flagyl) 500 mg in 100 mls @ 100 mls/hr IV Q12H [facility] Last Infusion: 06/04/24 10:55 Dose: Infused Documented By: ZHENG Sodium Chloride (Ns) 1,000 mls @ 80 mls/hr IVCONT .[id number] [facility] Last Infusion: 06/04/24 11:46 Dose: 80 mls/hr Documented By: ZHENG Magnesium Hydroxide (Milk Of Magnesia 30 Ml Oral.Susp) 30 ml PO DAILY PRN PRN Reason: Constipation Melatonin (Melatonin 3 Mg Tablet) 6 mg PO BEDTIME PRN PRN Reason: Insomnia Morphine Sulfate (Morphine Sulfate 2 Mg/Ml Cartridge) 2 mg IVPUSH Q3H PRN; Protocol PRN Reason: moderate pain Last Admin: 06/04/24 06:17 Dose: 2 mg Documented By: BOUBACAR Sodium Chloride (0.9 % Sodium Chloride Flush 3 Ml Syringe) 3 ml IVFLUSH QSHIFT [facility] Last Admin: 06/04/24 09:12 Dose: Not Given Documented By: ZHENG Non-Admin Reason: IV Running Labs 06/04/24 05:35 06/04/24 05:35 Labs: Laboratory Results - last 24 hr 06/03/24 06/04/24 Unknown 05:35 MCV 81.3 MCH 25.6 L MCHC 31.5 RDW 13.4 Plt Count 396 MPV 10.1 Absolute Nucleated RBC 0.000 Nucleated RBC % (auto) 0.0 Anion Gap 14 Estim Creat Clear Calc 142.4 Estimated GFR > 60 Fasting Glucose 72 Calcium 8.9 D Urine Color Yellow Urine Appearance Clear Urine pH 5.5 Ur Specific [place] 1.015 Urine Protein Negative Urine Glucose (UA) Negative Urine Ketones 80 Urine Blood Negative Urine Nitrite Negative Ur Leukocyte Esterase Trace H Urine RBC 0-2 Urine WBC 0-5 Ur Squamous Epith Cells 0-2 Urine Bacteria None Seen Hyaline Casts 3-5 Microbiology Microbiology Results: Microbiology 06/02/24 18:28 Blood Culture - Preliminary Blood - Venous No growth after 24 hours. 06/02/24 18:28 Blood Culture - Preliminary Blood - Venous No growth after 24 hours. Assessment and Plan (1) Diverticulitis: Status: Acute (2) Phlegmon: Status: Acute Assessment and Plan: 29F PMH recurrent sigmoid diverticulitis, obesity, presented with LLQ abd pain acute recurrent sigmoid diverticulitis with local perforation and phlegmon abd pain somewhat improving surgery following-continue iv abx levoflox/flagyl (intiated on 06/03),pain control. gen surg eval-currently recomended continue iv antibiotics obesity weight loss recommended low risk dvt - early ambulation full code ongoing acute diveritulitis, requiring prolonged iv abx and possible surgical intervention if does not improve. Quality Stroke Does the patient have a stroke diagnosis?: No VTE Prior VTE?: No VTE Risk Level:: Medical - low VTE Device Contraindication: Treatment Not Indicated VTE Drug Contraindication: Treatment Not Indicated
--- NOTE | 2024-06-04 12:00 | PC.NURSE ---
Patient tolerating PO intake well. IV fluids on pause per Dr. Almeida.
[2024-06-04 15:39] VITALS: BP 127/80; PULSE 81; RESP 20; TEMP 36.9; O2SAT 95
[2024-06-04 19:40] VITALS: BP 126/79; PULSE 88; RESP 20; TEMP 36.6; O2SAT 96
[2024-06-04] MEDS: 0.9 % Sodium Chloride Flush 3 ML SYRINGE IVFLUSH (21:37)
[2024-06-05] MEDS: levoFLOXacin/D5W 750 MG/150 ML PIGGYBACK 100 MG IV (02:00)
[2024-06-05 02:51] VITALS: BP 123/77; PULSE 71; RESP 18; TEMP 36.2; O2SAT 95
--- NOTE | 2024-06-05 07:12 | HO.STUDPN_ITS ---
Subjective Subjective Date of Service: 06/05/24 <[facility] Last Filed: 06/05/24 07:48> 06/05/24 <Lyndsey Lawson PA-C - Last Filed: 06/05/24 08:24> 06/05/24 <Jw Almeida MD - Last Filed: 06/05/24 08:38> Interval History: Resting comfortably, no overnight events. Reports 0/10 pain, no nausea, vomiting, or BM. Ambulating well w/o dizziness or pain. Reports flatus. < [facility] Last Filed: 06/05/24 07:48> Constitutional Constitutional: Reports no additional constitutional complaints, Denies fever(s) and Denies weakness <[facility] Filed: 06/05/24 07:48> Eyes Eyes: Reports no additional eye complaints <[facility] [place] Filed: 06/05/24 07:48> ENT Ears, Nose, Mouth, and Throat: Reports system reviewed and no additional complaints, except as documented and Denies dizziness <[facility] [place] Filed: 06/05/24 07:48> Cardiovascular Cardiovascular: Reports no additional cardiovascular complaints, Denies chest pain, Denies syncope and Denies lightheadedness <[facility] [place] Filed: 06/05/24 07:48> Respiratory Respiratory: Reports no additional respiratory complaints and Denies cough <[facility] [place] Filed: 06/05/24 07:48> Gastrointestinal Gastrointestinal: Reports no additional gastrointestinal complaints, Denies abdominal pain, Denies bloating, Denies GI cramping, Denies nausea and Denies vomiting <[facility] Last Filed: 06/05/24 07:48> Genitourinary Genitourinary: Reports no additional female genitourinary complaints, Denies dysuria and Denies urinary urgency <[facility] [place] Filed: 06/05/24 07:48> Musculoskeletal Musculoskeletal: Reports no additional musculoskeletal complaints <[facility] [place] Filed: 06/05/24 07:48> Integumentary/Breasts Skin/Breast: Reports no additional skin complaints, Denies lesions and Denies rash < [facility] [place] [facility] Filed: 06/05/24 07:48> Neurologic Neurologic: Reports system reviewed and no additional complaints, except as documented, Denies dizziness, Denies syncope and Denies weakness <[facility] Last Filed: 06/05/24 07:48> Physical Exam 2 Vital Signs: Vital Signs: Last Vital Signs Temp 97.1 F 06/05/24 02:51 Pulse 71 06/05/24 02:51 Resp 18 06/05/24 02:51 BP 123/77 06/05/24 02:51 Pulse Ox 95 06/05/24 02:51 O2 Del Method Room Air 06/05/24 02:51 BMI result Body Mass Index 40.3 <[facility] [employer] Last Filed: 06/05/24 07:48> Remains afebrile <[facility] [employer] Filed: 06/05/24 07:48> Const: General: cooperative, comfortable, no acute distress, alert, awake and Physically active <[facility] [employer] Filed: 06/05/24 07:48> Orientation/consciousness: patient oriented x3 <[facility] [employer] Filed: 06/05/24 07:48> HEENT: Head: Yes normocephalic and Yes atraumatic <[facility] [employer] Filed: 06/05/24 07:48> Ears: hearing grossly normal bilaterally and external ears normal <[facility] Filed: 06/05/24 07:48> Eyes: Conjunctivae: conjunctivae normal <[facility] [employer] Filed: 06/05/24 07:48> Sclerae: sclerae normal <[facility] [employer] Filed: 06/05/24 07:48> EOM: EOMs intact bilaterally <[facility] [employer] Filed: 06/05/24 07:48> Resp: Effort & Inspection: normal respiratory effort <[facility] [employer] Filed: 06/05/24 07:48> Auscultation: clear to auscultation bilaterally, no crackles, no rales, no rhonchi and no wheezes <[facility] [employer] Filed: 06/05/24 07:48> Cardio: Jugular venous distension: no JVD <[facility] [employer] Filed: 06/05/24 07:48> Rate: regular rate <[facility] [place] Filed: 06/05/24 07:48> Rhythm: regular rhythm <[facility] [place] Filed: 06/05/24 07:48> Heart sounds: S1 normal heart sound present, S2 normal heart sound present, no gallops, no murmurs and no rubs <[facility] [place] Filed: 06/05/24 07:48> Peripheral pulses: Peripheral pulses 2+ throughout <[facility] [place] Filed: 06/05/24 07:48> GI: Inspection: Yes normal to inspection and No distended <[facility] [place] Filed: 06/05/24 07:48> Palpation (GI): Soft to palpation, nontender, no guarding, not rigid and No hepatosplenomegaly present <[facility] [place] Filed: 06/05/24 07:48> Auscultation: normoactive bowel sounds <[facility] [place] Filed: 06/05/24 07:48> : General: Yes bladder normal to palpation and Yes no CVA tenderness < [facility] [place] Filed: 06/05/24 07:48> Bimanual exam- vagina & uterus: bladder normal to palpation <[facility] [place] Filed: 06/05/24 07:48> Back/Spine/Pelvis: Back: no CVA tenderness <[facility] [place] Filed: 06/05/24 07:48> Skin: General skin exam: no rashes or lesions noted <[facility] [place] Filed: 06/05/24 07:48> Neuro: General: patient oriented x3 and moves all extremities <[facility] [place] Filed: 06/05/24 07:48> Extrem: General: Yes normal to inspection, Yes capillary refill normal and No pedal edema <[facility] [place] Filed: 06/05/24 07:48> Objective Data Active Medications Acetaminophen (Acetaminophen 325 Mg Tablet) 650 mg PO Q6H PRN PRN Reason: Pain, Mild (Pain Scale 1-3), fever or headache Calcium Carbonate (Calcium Carbonate 750 Mg Tab.Chew) 750 mg PO Q4H PRN PRN Reason: Heartburn Metronidazole (Flagyl) 500 mg in 100 mls @ 100 mls/hr IV Q12H [facility] Last Infusion: 06/04/24 22:36 Dose: Infused Documented By: BOUBACAR Levofloxacin (Levaquin) 750 mg in 150 mls @ 100 mls/hr IV Q24H [facility] Last Infusion: 06/05/24 03:30 Dose: Infused Documented By: BOUBACAR Magnesium Hydroxide (Milk Of Magnesia 30 Ml Oral.Susp) 30 ml PO DAILY PRN PRN Reason: Constipation Melatonin (Melatonin 3 Mg Tablet) 6 mg PO BEDTIME PRN PRN Reason: Insomnia Morphine Sulfate (Morphine Sulfate 2 Mg/Ml Cartridge) 2 mg IVPUSH Q3H PRN; Protocol PRN Reason: moderate pain Last Admin: 06/04/24 06:17 Dose: 2 mg Documented By: BOUBACAR Sodium Chloride (0.9 % Sodium Chloride Flush 3 Ml Syringe) 3 ml IVFLUSH QSHIFT [facility] Last Admin: 06/04/24 21:37 Dose: 3 ml Documented By: BOUBACAR <Tata Yates - Last Filed: 06/05/24 07:48> Labs CBC & Chem 7: 06/04/24 05:35 06/04/24 05:35 <Tata Yates - Last Filed: 06/05/24 07:48> Microbiology Microbiology Results: Microbiology 06/02/24 18:28 Blood Culture - Preliminary Blood - Venous No growth after 48 hours. 06/02/24 18:28 Blood Culture - Preliminary Blood - Venous No growth after 48 hours. <Tata Yates - Last Filed: 06/05/24 07:48> Assessment and Plan (1) Diverticulitis: Status: Acute <Tata Yates - Last Filed: 06/05/24 07:48> Assessment and Plan: Pt tolerating liquid diet well w/o n/v. Pain 0/10 and no tenderness to palpation, ambulating well. Reports passing flatus. Plan to advance to solid diet today and monitor for tolerance Continue IV Flagyl and Levofloxacin. Seen by Maria Luz Love. <Tata Yates - Last Filed: 06/05/24 07:48> Pt tolerating liquid diet well w/o n/v. Pain 0/10 and no tenderness to palpation, ambulating well. Reports passing flatus. Plan to advance to solid diet today and monitor for tolerance Continue IV Flagyl and Levofloxacin. Seen by Tata Yates, Maria Luz. Agree with above assessment and plan. Patient asymptomatic with no abdominal tenderness. Will advance to solid diet. If tolerating, possible home tomorrow on course of PO abx and f/u in office to discuss eventual elective sigmoid resection to prevent recurrence. Patient comfortable with plan. <Lyndsey aLwson PA-C - Last Filed: 06/05/24 08:24> Pt tolerating liquid diet well w/o n/v. Pain 0/10 and no tenderness to palpation, ambulating well. Reports passing flatus. Plan to advance to solid diet today and monitor for tolerance Continue IV Flagyl and Levofloxacin. Seen by Tata Yates, M3. Agree with above assessment and plan. Patient asymptomatic with no abdominal tenderness. Will advance to solid diet. If tolerating, possible home tomorrow on course of PO abx and f/u in office to discuss eventual elective sigmoid resection to prevent recurrence. Patient comfortable with plan. . As noted <Jw Almeida MD - Last Filed: 06/05/24 08:38> Quality Stroke Does the patient have a stroke diagnosis?: No <[facility] Yates - Last Filed: 06/05/24 07:48> VTE Prior VTE?: No <Tata Yates - Last Filed: 06/05/24 07:48> VTE Risk Level:: Medical - low <Tata Yates - Last Filed: 06/05/24 07:48> VTE Device Contraindication: Treatment Not Indicated <Tata Yates - Last Filed: 06/05/24 07:48> VTE Drug Contraindication: Treatment Not Indicated <Tata Yates - Last Filed: 06/05/24 07:48>
--- NOTE | 2024-06-05 07:12 | HO.STUDENTPN ---
Subjective Subjective Date of Service: 06/05/24 <[facility] Last Filed: 06/05/24 07:48> 06/05/24 <Lyndsey Lawson PA-C - Last Filed: 06/05/24 08:24> 06/05/24 <Jw Almeida MD - Last Filed: 06/05/24 08:38> Interval History: Resting comfortably, no overnight events. Reports 0/10 pain, no nausea, vomiting, or BM. Ambulating well w/o dizziness or pain. Reports flatus. <[facility] Last Filed: 06/05/24 07:48> Constitutional Constitutional: Reports no additional constitutional complaints, Denies fever(s) and Denies weakness <[facility] Filed: 06/05/24 07:48> Eyes Eyes: Reports no additional eye complaints <[facility] Filed: 06/05/24 07:48> ENT Ears, Nose, Mouth, and Throat: Reports system reviewed and no additional complaints, except as documented and Denies dizziness <[facility] Filed: 06/05/24 07:48> Cardiovascular Cardiovascular: Reports no additional cardiovascular complaints, Denies chest pain, Denies syncope and Denies lightheadedness <[facility] Filed: 06/05/24 07:48> Respiratory Respiratory: Reports no additional respiratory complaints and Denies cough <[facility] Filed: 06/05/24 07:48> Gastrointestinal Gastrointestinal: Reports no additional gastrointestinal complaints, Denies abdominal pain, Denies bloating, Denies GI cramping, Denies nausea and Denies vomiting <[facility] Last Filed: 06/05/24 07:48> Genitourinary Genitourinary: Reports no additional female genitourinary complaints, Denies dysuria and Denies urinary urgency <[facility] Filed: 06/05/24 07:48> Musculoskeletal Musculoskeletal: Reports no additional musculoskeletal complaints <[facility] Filed: 06/05/24 07:48> Integumentary/Breasts Skin/Breast: Reports no additional skin complaints, Denies lesions and Denies rash <[facility] Filed: 06/05/24 07:48> Neurologic Neurologic: Reports system reviewed and no additional complaints, except as documented, Denies dizziness, Denies syncope and Denies weakness <[facility] Last Filed: 06/05/24 07:48> Physical Exam Vital Signs: Vital Signs: Last Vital Signs Temp 97.1 F 06/05/24 02:51 Pulse 71 06/05/24 02:51 Resp 18 06/05/24 02:51 BP 123/77 06/05/24 02:51 Pulse Ox 95 06/05/24 02:51 O2 Del Method Room Air 06/05/24 02:51 BMI result Body Mass Index 40.3 <[facility] Last Filed: 06/05/24 07:48> Remains afebrile <[facility] Filed: 06/05/24 07:48> Const: General: cooperative, comfortable, no acute distress, alert, awake and Physically active <[facility] Filed: 06/05/24 07:48> Orientation/consciousness: patient oriented x3 <[facility] Filed: 06/05/24 07:48> HEENT: Head: Yes normocephalic and Yes atraumatic <[facility] Filed: 06/05/24 07:48> Ears: hearing grossly normal bilaterally and external ears normal <[facility] Filed: 06/05/24 07:48> Eyes: Conjunctivae: conjunctivae normal <[facility] Filed: 06/05/24 07:48> Sclerae: sclerae normal <[facility] Filed: 06/05/24 07:48> EOM: EOMs intact bilaterally <[facility] Filed: 06/05/24 07:48> Resp: Effort & Inspection: normal respiratory effort <[facility] Filed: 06/05/24 07:48> Auscultation: clear to auscultation bilaterally, no crackles, no rales, no rhonchi and no wheezes <[facility] Filed: 06/05/24 07:48> Cardio: Jugular venous distension: no JVD <[facility] Filed: 06/05/24 07:48> Rate: regular rate <[facility] Filed: 06/05/24 07:48> Rhythm: regular rhythm <[facility] Filed: 06/05/24 07:48> Heart sounds: S1 normal heart sound present, S2 normal heart sound present, no gallops, no murmurs and no rubs <[facility] Filed: 06/05/24 07:48> Peripheral pulses: Peripheral pulses 2+ throughout <[facility] Filed: 06/05/24 07:48> GI: Inspection: Yes normal to inspection and No distended <[facility] Filed: 06/05/24 07:48> Palpation (GI): Soft to palpation, nontender, no guarding, not rigid and No hepatosplenomegaly present <[facility] Filed: 06/05/24 07:48> Auscultation: normoactive bowel sounds <[facility] Filed: 06/05/24 07:48> : General: Yes bladder normal to palpation and Yes no CVA tenderness <[facility] Filed: 06/05/24 07:48> Bimanual exam- vagina & uterus: bladder normal to palpation <[facility] Filed: 06/05/24 07:48> Back/Spine/Pelvis: Back: no CVA tenderness <[facility] Filed: 06/05/24 07:48> Skin: General skin exam: no rashes or lesions noted <[facility] Filed: 06/05/24 07:48> Neuro: General: patient oriented x3 and moves all extremities <[facility] Filed: 06/05/24 07:48> Extrem: General: Yes normal to inspection, Yes capillary refill normal and No pedal edema <[facility] Filed: 06/05/24 07:48> Objective Data Active Medications Acetaminophen (Acetaminophen 325 Mg Tablet) 650 mg PO Q6H PRN PRN Reason: Pain, Mild (Pain Scale 1-3), fever or headache Calcium Carbonate (Calcium Carbonate 750 Mg Tab.Chew) 750 mg PO Q4H PRN PRN Reason: Heartburn Metronidazole (Flagyl) 500 mg in 100 mls @ 100 mls/hr IV Q12H [facility] Last Infusion: 06/04/24 22:36 Dose: Infused Documented By: BOUBACAR Levofloxacin (Levaquin) 750 mg in 150 mls @ 100 mls/hr IV Q24H [facility] Last Infusion: 06/05/24 03:30 Dose: Infused Documented By: BOUBACAR Magnesium Hydroxide (Milk Of Magnesia 30 Ml Oral.Susp) 30 ml PO DAILY PRN PRN Reason: Constipation Melatonin (Melatonin 3 Mg Tablet) 6 mg PO BEDTIME PRN PRN Reason: Insomnia Morphine Sulfate (Morphine Sulfate 2 Mg/Ml Cartridge) 2 mg IVPUSH Q3H PRN; Protocol PRN Reason: moderate pain Last Admin: 06/04/24 06:17 Dose: 2 mg Documented By: BOUBACAR Sodium Chloride (0.9 % Sodium Chloride Flush 3 Ml Syringe) 3 ml IVFLUSH QSHIFT [facility] Last Admin: 06/04/24 21:37 Dose: 3 ml Documented By: BOUBACAR <Tata Yates - Last Filed: 06/05/24 07:48> Labs CBC & Chem 7: 06/04/24 05:35 06/04/24 05:35 <Tata Yates - Last Filed: 06/05/24 07:48> Microbiology Microbiology Results: Microbiology 06/02/24 18:28 Blood Culture - Preliminary Blood - Venous No growth after 48 hours. 06/02/24 18:28 Blood Culture - Preliminary Blood - Venous No growth after 48 hours. <[facility] Yates - Last Filed: 06/05/24 07:48> Assessment and Plan (1) Diverticulitis: Status: Acute <[facility] Yates - Last Filed: 06/05/24 07:48> Assessment and Plan: Pt tolerating liquid diet well w/o n/v. Pain 0/10 and no tenderness to palpation, ambulating well. Reports passing flatus. Plan to advance to solid diet today and monitor for tolerance Continue IV Flagyl and Levofloxacin. Seen by Maria Luz Love. <Tata Yates - Last Filed: 06/05/24 07:48> Pt tolerating liquid diet well w/o n/v. Pain 0/10 and no tenderness to palpation, ambulating well. Reports passing flatus. Plan to advance to solid diet today and monitor for tolerance Continue IV Flagyl and Levofloxacin. Seen by Tata Yates, Maria Luz. Agree with above assessment and plan. Patient asymptomatic with no abdominal tenderness. Will advance to solid diet. If tolerating, possible home tomorrow on course of PO abx and f/u in office to discuss eventual elective sigmoid resection to prevent recurrence. Patient comfortable with plan. <Lyndsey Lawson PA-C - Last Filed: 06/05/24 08:24> Pt tolerating liquid diet well w/o n/v. Pain 0/10 and no tenderness to palpation, ambulating well. Reports passing flatus. Plan to advance to solid diet today and monitor for tolerance Continue IV Flagyl and Levofloxacin. Seen by Tata Yates, M3. Agree with above assessment and plan. Patient asymptomatic with no abdominal tenderness. Will advance to solid diet. If tolerating, possible home tomorrow on course of PO abx and f/u in office to discuss eventual elective sigmoid resection to prevent recurrence. Patient comfortable with plan. . As noted <Jw Almeida MD - Last Filed: 06/05/24 08:38> Quality Stroke Does the patient have a stroke diagnosis?: No <[facility] - Last Filed: 06/05/24 07:48> VTE Prior VTE?: No <[facility] - Last Filed: 06/05/24 07:48> VTE Risk Level:: Medical - low <Tata Yates - Last Filed: 06/05/24 07:48> VTE Device Contraindication: Treatment Not Indicated <Tata Yates - Last Filed: 06/05/24 07:48> VTE Drug Contraindication: Treatment Not Indicated <[facility] - Last Filed: 06/05/24 07:48>
[2024-06-05 07:33] VITALS: BP 125/88; PULSE 83; RESP 18; TEMP 37.1; O2SAT 96
[2024-06-05] MEDS: 0.9 % Sodium Chloride Flush 3 ML SYRINGE IVFLUSH ×2 (08:22→20:35)
[2024-06-05] MEDS: metroNIDAZOLE/NS 500 MG/100 ML PIGGYBACK 100 MG IV ×2 (08:23→20:35)
--- NOTE | 2024-06-05 10:14 | MHC.CM.PN ---
Addendum entered by Marlene Iqbal 06/05/24 13:01: Discharge is on hold. She will discharge once toleration solid food. Original Note: Per MD round patient is ready to discharge today. She will discharge to home self care. She has arranged for transport home.
--- NOTE | 2024-06-05 11:18 | P.PNIM_ITS ---
Subjective Subjective Date of Service: 06/05/24 Interval History: improved Physical Exam 2 Vital Signs: Vital Signs: Last Vital Signs Temp 98.8 F 06/05/24 07:33 Pulse 83 06/05/24 07:33 Resp 18 06/05/24 07:33 BP 125/88 06/05/24 07:33 Pulse Ox 96 06/05/24 07:33 O2 Del Method Room Air 06/05/24 07:33 BMI result Body Mass Index 40.3 Remains afebrile Const: General: cooperative, comfortable, no acute distress, alert, awake and Physically active Orientation/consciousness: patient oriented x3 HEENT: Head: Yes normocephalic and Yes atraumatic Ears: hearing grossly normal bilaterally and external ears normal Eyes: Conjunctivae: conjunctivae normal Sclerae: sclerae normal EOM: E OMs intact bilaterally Resp: Effort & Inspection: normal respiratory effort Auscultation: clear to auscultation bilaterally, no crackles, no rales, no rhonchi and no wheezes Cardio: Jugular venous distension: no JVD Rate: regular rate Rhythm: r egular rhythm Heart sounds: S1 normal heart sound present, S2 normal heart sound present, no gallops, no murmurs and no rubs Peripheral pulses: P eripheral pulses 2+ throughout GI: Inspection: Yes normal to inspection and No distended Palpation (GI): S oft to palpation, nontender, no guarding, not rigid and No hepatosplenomegaly present Auscultation: normoactive bowel sounds : General: Yes bladder normal to palpation and Yes no CVA tenderness B imanual exam- vagina & uterus: bladder normal to palpation Back/Spine/Pelvis: Back: no CVA tenderness Skin: General skin exam: no rashes or lesions noted Neuro: General: patient oriented x3 and moves all extremities Extrem: General: Yes normal to inspection, Yes capillary refill normal and No pedal edema Objective Data Active Medications Acetaminophen (Acetaminophen 325 Mg Tablet) 650 mg PO Q6H PRN PRN Reason: Pain, Mild (Pain Scale 1-3), fever or headache Calcium Carbonate (Calcium Carbonate 750 Mg Tab.Chew) 750 mg PO Q4H PRN PRN Reason: Heartburn Docusate Sodium (Docusate Sodium 100 Mg Capsule) 100 mg PO BID PRN PRN Reason: Constipation Metronidazole (Flagyl) 500 mg in 100 mls @ 100 mls/hr IV Q12H [facility] Last Infusion: 06/05/24 09:48 Dose: Infused Documented By: MAURY Levofloxacin (Levaquin) 750 mg in 150 mls @ 100 mls/hr IV Q24H [facility] Last Infusion: 06/05/24 03:30 Dose: Infused Documented By: BOUBACAR Magnesium Hydroxide (Milk Of Magnesia 30 Ml Oral.Susp) 30 ml PO DAILY PRN PRN Reason: Constipation Melatonin (Melatonin 3 Mg Tablet) 6 mg PO BEDTIME PRN PRN Reason: Insomnia Morphine Sulfate (Morphine Sulfate 2 Mg/Ml Cartridge) 2 mg IVPUSH Q3H PRN; Protocol PRN Reason: moderate pain Last Admin: 06/04/24 06:17 Dose: 2 mg Documented By: BOUBACAR Sodium Chloride (0.9 % Sodium Chloride Flush 3 Ml Syringe) 3 ml IVFLUSH QSHIFT [facility] Last Admin: 06/05/24 08:22 Dose: 3 ml Documented By: MAURY Labs 06/04/24 05:35 06/04/24 05:35 Microbiology Microbiology Results: Microbiology 06/02/24 18:28 Blood Culture - Preliminary Blood - Venous No growth after 48 hours. 06/02/24 18:28 Blood Culture - Preliminary Blood - Venous No growth after 48 hours. Assessment and Plan (1) Diverticulitis: Status: Acute (2) Phlegmon: Status: Acute Assessment and Plan: 29F PMH recurrent sigmoid diverticulitis, obesity, presented with LLQ abd pain acute recurrent sigmoid diverticulitis with local perforation and phlegmon improving, started solids, so far tolerating surgery following-continue iv abx levoflox/flagyl (intiated on 06/03),pain control. outpatient elective resection obesity weight loss recommended low risk dvt - early ambulation full code reason for continued hospitalization:monitoring for tolerance of solids, likely dc 06/06/24 if remains asymptomatic Quality Stroke Does the patient have a stroke diagnosis?: No VTE Prior VTE?: No VTE Risk Level:: Medical - low VTE Device Contraindication: Treatment Not Indicated VTE Drug Contraindication: Treatment Not Indicated
[2024-06-05 15:45] VITALS: BP 145/88; PULSE 103; RESP 16; TEMP 36.4; O2SAT 98
[2024-06-05 19:05] VITALS: BP 133/82; PULSE 93; RESP 18; TEMP 37; O2SAT 96
[2024-06-06] MEDS: levoFLOXacin/D5W 750 MG/150 ML PIGGYBACK 100 MG IV (02:32)
[2024-06-06 02:35] VITALS: BP 127/79; PULSE 91; RESP 18; TEMP 36.3; O2SAT 94
--- NOTE | 2024-06-06 07:04 | HO.STUDPN_ITS ---
Subjective Subjective Date of Service: 06/06/24 <[facility] Last Filed: 06/06/24 07:11> 06/07/24 <Lyndsey Lawson PA-C - Last Filed: 06/07/24 12:44> Interval History: Pt resting comfortably, reports no pain, ambulating well, tolerating solid diet without nausea, vomiting. Passing flatus, no BM yet. <[facility] Filed: 06/06/24 07:11> Constitutional Constitutional: Reports no additional constitutional complaints, Denies fatigue, Denies fever(s) and Denies weakness <[facility] Last Filed: 06/06/24 07:11> Eyes Eyes: Reports no additional eye complaints <[facility] Filed: 06/06/24 07:11> ENT Ears, Nose, Mouth, and Throat: Reports system reviewed and no additional complaints, except as documented <[facility] Filed: 06/06/24 07:11> Cardiovascular Cardiovascular: Reports no additional cardiovascular complaints <[facility] Filed: 06/06/24 07:11> Respiratory Respiratory: Reports no additional respiratory complaints <[facility] Filed: 06/06/24 07:11> Gastrointestinal Gastrointestinal: Reports no additional gastrointestinal complaints, Denies abdominal pain, Denies bloating, Denies nausea and Denies vomiting <[facility] Filed: 06/06/24 07:11> Genitourinary Genitourinary: Reports no additional female genitourinary complaints <[facility] Filed: 06/06/24 07:11> Musculoskeletal Musculoskeletal: Reports no additional musculoskeletal complaints <[facility] Filed: 06/06/24 07:11> Integumentary/Breasts Skin/Breast: Reports no additional skin complaints <[facility] Filed: 06/06/24 07:11> Neurologic Neurologic: Reports system reviewed and no additional complaints, except as documented and Denies weakness <[facility] Filed: 06/06/24 07:11> Psychiatric Psychiatric: Reports no additional psychiatric complaints <[facility] Filed: 06/06/24 07:11> Endocrine Endocrine: Denies fatigue <[facility] Filed: 06/06/24 07:11> Physical Exam 2 Vital Signs: Vital Signs: Last Vital Signs Temp 97.3 F 06/06/24 02:35 Pulse 91 06/06/24 02:35 Resp 18 06/06/24 02:35 BP 127/79 06/06/24 02:35 Pulse Ox 94 06/06/24 02:35 O2 Del Method Room Air 06/06/24 02:35 BMI result Body Mass Index 40.3 <[facility] Filed: 06/06/24 07:11> Remains afebrile <[facility] Filed: 06/06/24 07:11> Const: General: healthy appearing, comfortable, alert, awake and Physically active <[facility] Filed: 06/06/24 07:11> Orientation/consciousness: patient oriented x3 <[facility] Filed: 06/06/24 07:11> HEENT: Head: Yes normocephalic and Yes atraumatic <[facility] Filed: 06/06/24 07:11> Ears: hearing grossly normal bilaterally <[facility] Filed: 06/06/24 07:11> Face and sinus: Yes face symmetric <[facility] Filed: 06/06/24 07:11> Eyes: General: appearance normal, both eyes and all related structures < [facility] Filed: 06/06/24 07:11> Conjunctivae: conjunctivae normal <[facility] Filed: 06/06/24 07:11> Sclerae: sclerae normal <[facility] Filed: 06/06/24 07:11> EOM: EOMs intact bilaterally <[facility] Filed: 06/06/24 07:11> Resp: Effort & Inspection: normal respiratory effort <[facility] Filed: 06/06/24 07:11> Auscultation: clear to auscultation bilaterally, no crackles, no rales, no rhonchi and no wheezes <[facility] Filed: 06/06/24 07:11> Cardio: Jugular venous distension: no JVD <[facility] Filed: 06/06/24 07:11> Rate: regular rate <[facility] Filed: 06/06/24 07:11> Rhythm: regular rhythm <[facility] Filed: 06/06/24 07:11> Heart sounds: S1 normal heart sound present, S2 normal heart sound present, no gallops, no murmurs and no rubs <[facility] Filed: 06/06/24 07:11> Peripheral pulses: Peripheral pulses 2+ throughout <[facility] Filed: 06/06/24 07:11> GI: Inspection: Yes normal to inspection <[facility] Filed: 06/06/24 07:11> Palpation (GI): Soft to palpation, nontender and No hepatosplenomegaly present <[facility] Filed: 06/06/24 07:11> Auscultation: normoactive bowel sounds <[facility] Filed: 06/06/24 07:11> : General: Yes bladder normal to palpation and Yes no CVA tenderness < [facility] Filed: 06/06/24 07:11> Bimanual exam- vagina & uterus: bladder normal to palpation <[facility] Filed: 06/06/24 07:11> Back/Spine/Pelvis: Back: no CVA tenderness <[facility] Filed: 06/06/24 07:11> Skin: General skin exam: no rashes or lesions noted <[facility] Filed: 06/06/24 07:11> Neuro: General: patient oriented x3 and moves all extremities <[facility] Filed: 06/06/24 07:11> Extrem: General: Yes normal to inspection, Yes capillary refill normal and Yes no pedal edema <[facility] Filed: 06/06/24 07:11> Objective Data Active Medications Acetaminophen (Acetaminophen 325 Mg Tablet) 650 mg PO Q6H PRN PRN Reason: Pain, Mild (Pain Scale 1-3), fever or headache Calcium Carbonate (Calcium Carbonate 750 Mg Tab.Chew) 750 mg PO Q4H PRN PRN Reason: Heartburn Docusate Sodium (Docusate Sodium 100 Mg Capsule) 100 mg PO BID PRN PRN Reason: Constipation Metronidazole (Flagyl) 500 mg in 100 mls @ 100 mls/hr IV Q12H [facility] Last Infusion: 06/05/24 21:35 Dose: Infused Documented By: SHERRILL Levofloxacin (Levaquin) 750 mg in 150 mls @ 100 mls/hr IV Q24H [facility] Last Infusion: 06/06/24 04:02 Dose: Infused Documented By: SHERRILL Magnesium Hydroxide (Milk Of Magnesia 30 Ml Oral.Susp) 30 ml PO DAILY PRN PRN Reason: Constipation Melatonin (Melatonin 3 Mg Tablet) 6 mg PO BEDTIME PRN PRN Reason: Insomnia Morphine Sulfate (Morphine Sulfate 2 Mg/Ml Cartridge) 2 mg IVPUSH Q3H PRN; Protocol PRN Reason: moderate pain Last Admin: 06/04/24 06:17 Dose: 2 mg Documented By: BOUBACAR Sodium Chloride (0.9 % Sodium Chloride Flush 3 Ml Syringe) 3 ml IVFLUSH QSHIFT [facility] Last Admin: 06/05/24 20:35 Dose: 3 ml Documented By: SHERRILL <Tata Yates - Last Filed: 06/06/24 07:11> Labs CBC & Chem 7: 06/04/24 05:35 06/04/24 05:35 <Tata Yates - Last Filed: 06/06/24 07:11> Assessment and Plan (1) Diverticulitis of large intestine with complication: Status: Acute <Tata Yates - Last Filed: 06/06/24 07:11> Assessment and Plan: Pt tolerating solids w/o pain, nausea, vomiting Plan for discharge today with transition to PO antibiotics Schedule outpatient f/u to discuss elective sigmoid resection <Tata Yates - Last Filed: 06/06/24 07:11> Pt tolerating solids w/o pain, nausea, vomiting Plan for discharge today with transition to PO antibiotics Schedule outpatient f/u to discuss elective sigmoid resection Seen independently. Agree with above assessment and plan by Tata Yates MS-3. <Lyndsey Lawson PA-C - Last Filed: 06/07/24 12:44> Quality Stroke Does the patient have a stroke diagnosis?: No <Tata Miyabrayan - Last Filed: 06/06/24 07:11> VTE Prior VTE?: No <Tata Miya - Last Filed: 06/06/24 07:11> VTE Risk Level:: Medical - low <Tata Miyabrayan Last Filed: 06/06/24 07:11> VTE Device Contraindication: Treatment Not Indicated <[facility]taa Yates Filed: 06/06/24 07:11> VTE Drug Contraindication: Treatment Not Indicated <Tata Miya Filed: 06/06/24 07:11>
--- NOTE | 2024-06-06 07:04 | HO.STUDENTPN ---
Subjective Subjective Date of Service: 06/06/24 <[facility] Last Filed: 06/06/24 07:11> 06/07/24 <Lyndsey Lawson PA-C - Last Filed: 06/07/24 12:44> Interval History: Pt resting comfortably, reports no pain, ambulating well, tolerating solid diet without nausea, vomiting. Passing flatus, no BM yet. <[facility] Filed: 06/06/24 07:11> Constitutional Constitutional: Reports no additional constitutional complaints, Denies fatigue, Denies fever(s) and Denies weakness <[facility] Last Filed: 06/06/24 07:11> Eyes Eyes: Reports no additional eye complaints <[facility] Filed: 06/06/24 07:11> ENT Ears, Nose, Mouth, and Throat: Reports system reviewed and no additional complaints, except as documented <[facility] Filed: 06/06/24 07:11> Cardiovascular Cardiovascular: Reports no additional cardiovascular complaints <[facility] Filed: 06/06/24 07:11> Respiratory Respiratory: Reports no additional respiratory complaints <[facility] Filed: 06/06/24 07:11> Gastrointestinal Gastrointestinal: Reports no additional gastrointestinal complaints, Denies abdominal pain, Denies bloating, Denies nausea and Denies vomiting <[facility] Filed: 06/06/24 07:11> Genitourinary Genitourinary: Reports no additional female genitourinary complaints <[facility] Filed: 06/06/24 07:11> Musculoskeletal Musculoskeletal: Reports no additional musculoskeletal complaints <[facility] Filed: 06/06/24 07:11> Integumentary/Breasts Skin/Breast: Reports no additional skin complaints <[facility] Filed: 06/06/24 07:11> Neurologic Neurologic: Reports system reviewed and no additional complaints, except as documented and Denies weakness <[facility] Filed: 06/06/24 07:11> Psychiatric Psychiatric: Reports no additional psychiatric complaints <[facility] Filed: 06/06/24 07:11> Endocrine Endocrine: Denies fatigue <[facility] Filed: 06/06/24 07:11> Physical Exam Vital Signs: Vital Signs: Last Vital Signs Temp 97.3 F 06/06/24 02:35 Pulse 91 06/06/24 02:35 Resp 18 06/06/24 02:35 BP 127/79 06/06/24 02:35 Pulse Ox 94 06/06/24 02:35 O2 Del Method Room Air 06/06/24 02:35 BMI result Body Mass Index 40.3 <[facility] Filed: 06/06/24 07:11> Remains afebrile <[facility] Filed: 06/06/24 07:11> Const: General: healthy appearing, comfortable, alert, awake and Physically active <[facility] Filed: 06/06/24 07:11> Orientation/consciousness: patient oriented x3 <[facility] Filed: 06/06/24 07:11> HEENT: Head: Yes normocephalic and Yes atraumatic <[facility] Filed: 06/06/24 07:11> Ears: hearing grossly normal bilaterally <[facility] Filed: 06/06/24 07:11> Face and sinus: Yes face symmetric <[facility] Filed: 06/06/24 07:11> Eyes: General: appearance normal, both eyes and all related structures <[facility] Filed: 06/06/24 07:11> Conjunctivae: conjunctivae normal <[facility] Filed: 06/06/24 07:11> Sclerae: sclerae normal <[facility] Filed: 06/06/24 07:11> EOM: EOMs intact bilaterally <[facility] Filed: 06/06/24 07:11> Resp: Effort & Inspection: normal respiratory effort <[facility] Filed: 06/06/24 07:11> Auscultation: clear to auscultation bilaterally, no crackles, no rales, no rhonchi and no wheezes <[facility] Filed: 06/06/24 07:11> Cardio: Jugular venous distension: no JVD <[facility] Filed: 06/06/24 07:11> Rate: regular rate <[facility] Filed: 06/06/24 07:11> Rhythm: regular rhythm <[facility] Filed: 06/06/24 07:11> Heart sounds: S1 normal heart sound present, S2 normal heart sound present, no gallops, no murmurs and no rubs <[facility] Filed: 06/06/24 07:11> Peripheral pulses: Peripheral pulses 2+ throughout <[facility] Filed: 06/06/24 07:11> GI: Inspection: Yes normal to inspection <[facility] Filed: 06/06/24 07:11> Palpation (GI): Soft to palpation, nontender and No hepatosplenomegaly present <[facility] Filed: 06/06/24 07:11> Auscultation: normoactive bowel sounds <[facility] Filed: 06/06/24 07:11> : General: Yes bladder normal to palpation and Yes no CVA tenderness <[facility] Filed: 06/06/24 07:11> Bimanual exam- vagina & uterus: bladder normal to palpation <[facility] Filed: 06/06/24 07:11> Back/Spine/Pelvis: Back: no CVA tenderness <[facility] Filed: 06/06/24 07:11> Skin: General skin exam: no rashes or lesions noted <[facility] Filed: 06/06/24 07:11> Neuro: General: patient oriented x3 and moves all extremities <[facility] Filed: 06/06/24 07:11> Extrem: General: Yes normal to inspection, Yes capillary refill normal and Yes no pedal edema <[facility] Filed: 06/06/24 07:11> Objective Data Active Medications Acetaminophen (Acetaminophen 325 Mg Tablet) 650 mg PO Q6H PRN PRN Reason: Pain, Mild (Pain Scale 1-3), fever or headache Calcium Carbonate (Calcium Carbonate 750 Mg Tab.Chew) 750 mg PO Q4H PRN PRN Reason: Heartburn Docusate Sodium (Docusate Sodium 100 Mg Capsule) 100 mg PO BID PRN PRN Reason: Constipation Metronidazole (Flagyl) 500 mg in 100 mls @ 100 mls/hr IV Q12H [facility] Last Infusion: 06/05/24 21:35 Dose: Infused Documented By: SHERRILL Levofloxacin (Levaquin) 750 mg in 150 mls @ 100 mls/hr IV Q24H [facility] Last Infusion: 06/06/24 04:02 Dose: Infused Documented By: SHERRILL Magnesium Hydroxide (Milk Of Magnesia 30 Ml Oral.Susp) 30 ml PO DAILY PRN PRN Reason: Constipation Melatonin (Melatonin 3 Mg Tablet) 6 mg PO BEDTIME PRN PRN Reason: Insomnia Morphine Sulfate (Morphine Sulfate 2 Mg/Ml Cartridge) 2 mg IVPUSH Q3H PRN; Protocol PRN Reason: moderate pain Last Admin: 06/04/24 06:17 Dose: 2 mg Documented By: BOUBACAR Sodium Chloride (0.9 % Sodium Chloride Flush 3 Ml Syringe) 3 ml IVFLUSH QSHIFT [facility] Last Admin: 06/05/24 20:35 Dose: 3 ml Documented By: SHERRILL <Tata Yates - Last Filed: 06/06/24 07:11> Labs CBC & Chem 7: 06/04/24 05:35 06/04/24 05:35 <Ttaa Yates - Last Filed: 06/06/24 07:11> Assessment and Plan (1) Diverticulitis of large intestine with complication: Status: Acute <Tata Yates - Last Filed: 06/06/24 07:11> Assessment and Plan: Pt tolerating solids w/o pain, nausea, vomiting Plan for discharge today with transition to PO antibiotics Schedule outpatient f/u to discuss elective sigmoid resection <Tata Yates - Last Filed: 06/06/24 07:11> Pt tolerating solids w/o pain, nausea, vomiting Plan for discharge today with transition to PO antibiotics Schedule outpatient f/u to discuss elective sigmoid resection Seen independently. Agree with above assessment and plan by Tata Yates MS-3. <Lyndsey Lawson PA-C - Last Filed: 06/07/24 12:44> Quality Stroke Does the patient have a stroke diagnosis?: No <Tata Miyabrayan - Last Filed: 06/06/24 07:11> VTE Prior VTE?: No <Tata Miya - Last Filed: 06/06/24 07:11> VTE Risk Level:: Medical - low <Tata Yates - Last Filed: 06/06/24 07:11> VTE Device Contraindication: Treatment Not Indicated <Tata Yates - Last Filed: 06/06/24 07:11> VTE Drug Contraindication: Treatment Not Indicated <Tata Miya Last Filed: 06/06/24 07:11>
[2024-06-06 07:47] VITALS: BP 131/87; PULSE 83; RESP 18; TEMP 36.3; O2SAT 100
[2024-06-06] MEDS: metroNIDAZOLE/NS 500 MG/100 ML PIGGYBACK 100 MG IV (08:12)
[2024-06-06] MEDS: 0.9 % Sodium Chloride Flush 3 ML SYRINGE IVFLUSH (08:14)
--- NOTE | 2024-06-06 09:46 | P.DS_ITS ---
DS: Providers Provider Date of Service: 06/06/24 Date of admission: 06/03/24 01:24 Date of discharge: 06/06/24 Primary care physician: None Physician Consults: 06/03/24 01:22 Consult to General Surgery Routine Consulting Provider: [facility] Reason for consultation: recurrent diverticulitis with phlegmon and local perf DS: Diagnosis Discharge Diagnosis (1) Diverticulitis: Status: Acute (2) Phlegmon: Status: Acute DS: Summary Hospital Course Hospital Course: from initial hpi: 29F PMH recurrent sigmoid diverticulitis, obesity, presented with LLQ abd pain. pain has been ongoing for about 1 month. worsening over last few days, a/w loose stools, decreased appetite. in 2020 had similar symptoms with sigmoid divericuli tis with phelgmon treated with prolonged course antibiotics. has been mostly asymptomatic in between. in ED, cT abd with Acute sigmoid diverticulitis with focal perforation and a 6.5 cm phlegmonous collection in the anterior aspect of the pelvis. hospital course: Patient was admitted for acute recurrent sigmoid diverticulitis with local perforation and phlegmon. She was treated with IV levofloxacin and Flagyl, diet was slowly advanced to the point where she is tolerating and pain is much improved. She was seen by General surgery who recommended outpatient follow-up for elective resection. She will continue on 7 more days of p.o. Levaquin and Flagyl. For obesity weight loss recommended. Time Attestation Discharge Coordination Time (in mins): 34 Quality: Safe Use of Opioids Does Pt have an Active Cancer Diagnosis on the Problem List?: No Quality: Stroke Does the patient have a stroke diagnosis?: No Physical Exam Vital Signs: Vital Signs: Last Vital Signs Temp 97.4 F 06/06/24 07:47 Pulse 83 06/06/24 07:47 Resp 18 06/06/24 07:47 BP 131/87 06/06/24 07:47 Pulse Ox 100 06/06/24 07:47 O2 Del Method Room Air 06/06/24 07:47 BMI result Body Mass Index 40.3 Remains afebrile Const: General: healthy appearing, comfortable, alert, awake and Physically active Orientation/consciousness: patient oriented x3 HEENT: Head: Yes normocephalic and Yes atraumatic Ears: hearing grossly normal bilaterally Face and sinus: Yes face symmetric Eyes: General: appearance normal, both eyes and all related structures Conjunctivae: conjunctivae normal Sclerae: sclerae normal EOM: EOMs intact bilaterally Resp: Effort & Inspection: normal respiratory effort Auscultation: clear to auscultation bilaterally, no crackles, no rales, no rhonchi and no wheezes Cardio: Jugular venous distension: no JVD Rate: regular rate Rhythm: regular rhythm Heart sounds: S1 normal heart sound present, S2 normal heart sound present, no gallops, no murmurs and no rubs Peripheral pulses: Peripheral pulses 2+ throughout GI: Inspection: Yes normal to inspection Palpation (GI): Soft to palpation, nontender and No hepatosplenomegaly present Auscultation: normoactive bowel sounds : General: Yes bladder normal to palpation and Yes no CVA tenderness Bimanual exam- vagina & uterus: bladder normal to palpation Back/Spine/Pelvis: Back: no CVA tenderness Skin: General skin exam: no rashes or lesions noted Neuro: General: patient oriented x3 and moves all extremities Extrem: General: Yes normal to inspection, Yes capillary refill normal and Yes no pedal edema DS: Data Data Completed and Pending Labs on day of discharge: Preliminary micro results at discharge 06/02/24 18:28 Blood Culture - Preliminary Blood - Venous No growth after 48 hours. 06/02/24 18:28 Blood Culture - Preliminary Blood - Venous No growth after 48 hours. Discharge Plan Discharge Anticipated Discharge Date/Time: 06/06/24 09:44 Patient Disposition: Home, Self-Care Discharge Diagnosis: Diverticulitis with phlegmon Referrals: Physician,None [Primary Care Provider] - 1 Week Jw Almeida MD [Physician] - 1 Week Discharge Medications: New levofloxacin 500 mg tablet 500 mg PO DAILY Qty: 7 0RF metronidazole 500 mg tablet 500 mg PO Q12H Qty: 14 0RF Discharge Orders: Discharge Order (Routine); Ordered 06/06/24 Ordered By: Leland Jiménez Diet: Advance to usual diet Activity on Discharge: No heavy lifting Stand Alone Forms: Patient Portal Discharge page Print Language: Telugu Care Plan Goals: Recovery Health Concerns: Diverticulitis with phlegmon Plan of Treatment: Continue 7 more days of levofloxacin and metronidazole. Follow up with surgeon for elective surgery Assessment: See above
--- NOTE | 2024-06-06 10:35 | MHC.CM.PN ---
Patient is discharged to home self care. She has arranged for transportation home.
== END 2024-06-06 10:36 | disposition home or self-care (01) | DRG 244 ==
LOC: HO.ED 06-03 01:29 → HO.EDOVER 06-03 01:45 → HO.S3 06-03 14:18
PROVIDERS: Registered Nurse Emergency; Admitting Provider Internal Medicine; Emergency Provider Emergency Medicine; Visit Provider Internal Medicine
DX: K57.20 Diverticulitis of large intestine with perforation and abscess without bleeding (principal)
CPT/HCPCS: 36415; 74177; 80048; 80053; 81001; 83605; 83690; 84702; 85025; 85027; 87040; 99285; J1836; J1956; J2270; J2405; Q9967

== ENCOUNTER → 2024-06-02 23:23 | Outpatient (BNV) | payer BC, SELFPAY | PROVIDERS: Emergency Provider Emergency Medicine; Visit Provider Internal Medicine | DX: K57.32 Diverticulitis of large intestine without perforation or abscess without bleeding (principal) | CPT/HCPCS: 99223; 99232; 99239; 99499 ==

== ENCOUNTER → 2024-06-03 01:24 | Outpatient (BNV) | payer BC, SELFPAY | PROVIDERS: Admitting Provider Internal Medicine; Emergency Provider Emergency Medicine; Visit Provider Physician Assistant Surgical | DX: K57.32 Diverticulitis of large intestine without perforation or abscess without bleeding (principal) | CPT/HCPCS: 99232; 99254 ==

== ENCOUNTER → 2024-06-19 11:32 | Outpatient (BNVA) | payer BC, SELFPAY | PROVIDERS: Visit Provider Surgery ==

== ENCOUNTER 2024-07-03 08:33 | Outpatient (AMB) | payer BC, SELFPAY ==
--- NOTE | 2024-07-03 08:35 | A.OFFVIS_ITS ---
Vital Signs 07/03/24 08:41 Height 5 ft 4 in Weight 230 lb BMI 39.5 BP 136/81 Blood Pressure Location Rt brachial Position Sitting Pulse 87 Intake Visit Reasons: s/p hospitalization diverticulitis Intake Note: [place] patient [place] [facility] [place]. Pt c/o; reports no complaints. 06/02/2024: Abd/pelvis CT Inventory Control Assistant Required: No Accompanied by: Self / Same As Patient Allergies No Known Allergies [No Known Allergies*] Allergy (Verified 07/03/24 08:43) HPI HPI s/p hospitalization diverticulitis: Details: [age] year female here for follow-up for diverticulitis. She was admitted to the hospital last June 02, 2024 for acute diverticulitis. She was being followed by Dr. Almeida at that time. Her CAT scan showed this phlegmonous collection in the sigmoid up to 6.5 cm in diameter. She had improved with operative treatment with IV antibiotics. Review of her records shows that her last admission for diverticulitis was in 2020. She says that she had been doing well at home. She denies any episodes of abdominal pain. She has had good oral intake. Denies GI complaints. [facility] Medical History Morbid obesity Diverticulitis Surgical History No pertinent past surgical history Social History Household Members: Other Household Members Other:: Sister. Housing: Apartment Do you presently have visiting nurse or other home services: No Patient Tobacco Use Status: Never used Tobacco Advance Directives Date on File: 07/30/21 service: No Current occupational status: employed Review of Systems Const Denies chills and Denies fever(s) Card Denies chest pain, Denies dyspnea and Denies dyspnea on exertion Resp Denies cough, Denies dyspnea and Denies dyspnea on exertion GI Denies hematochezia and Denies change in bowel habits Denies hematuria Musc Denies back pain and Denies limited range of motion Neuro Denies focal weakness and Denies convulsions Psych Denies depression and Denies mood swings Physical Exam Const Other: Morbidly obese General: comfortable and no acute distress Resp Effort & Inspection: normal respiratory effort Cardio Rate: regular rate GI Palpation (GI): Soft to palpation, not firm, nontender and no guarding Assessment & Plan Assessment & Plan (1) Diverticulitis of large intestine with complication: Code(s): K57.32 - Diverticulitis of large intestine without perforation or abscess without bleeding Category: Medical Plan: She had a complicated diverticulitis but had responded well to nonoperative treatment. I explained to her that she is likely to require sigmoid resection down the line. I have advised her on getting into a weight loss program as her body mass index is very high I explained to her that sigmoid resection we will be necessary down the line. We will refer her to the weight management program as well as she is interested in this I will see her in the office in about 3 months for a ffup visit. Coding Level of Care Code Est Pt Level 3 (71115) Diagnoses Diverticulitis of large intestine with complication K57.32
[2024-07-03 08:41] VITALS: BP 136/81; PULSE 87; BMI 39.5
== END 2024-07-03 08:52 | disposition home or self-care (01) ==
PROVIDERS: Visit Provider Surgery
DX: K57.32 Diverticulitis of large intestine without perforation or abscess without bleeding (principal)
CPT/HCPCS: 99213

== ENCOUNTER → 2024-07-03 08:33 | Outpatient (BNVA) | payer BC, SELFPAY | PROVIDERS: Visit Provider Surgery ==

== ENCOUNTER 2025-03-20 17:25 | Inpatient (IN) | payer OTHER, SELFPAY ==
--- NOTE | ~2025-03-20 | CT_ITS ---
CLINICAL HISTORY: AND pain, n v, hx divertic w perf CT abdomen and pelvis with contrast Comparison: None available Findings: Mild bibasilar atelectasis. Focal fat deposition including adjacent to the falciform ligament. Adrenal glands are partly obscured but otherwise unremarkable. The spleen is nonenlarged. Gallbladder is mildly distended. Mild fluid adjacent to the pancreas nonspecific and can be seen with pancreatitis. Small mesenteric and periaortic lymph nodes are nonspecific and likely reactive. Dense ingested material and multiple small bowel loops without small-bowel obstruction. Moderate to severe stool burden present, including in the cecum. Acute inflammatory stranding severe and concerning for diverticulitis predominately involving the sigmoid colon. Adjacent fluid with likely phlegmonous change. Small mural abscess not excluded. No well-defined or definite drainable abscess with multifocal interloop edema and free fluid concerning for perforation. Gas in the midabdomen also concerning for perforation not definitively in the small bowel loop (image 66 of series 3 and imaged 57 of series 3. Additional free fluid is in the abdomen and pelvis and likely reactive. Appendicolith present without acute appendicitis (image 66 of series 3). Uterus is anteverted mildly deviates to the right. Fluid of the cervix likely due to nabothian cysts, with 1 of the 2 measuring up to 1.4 cm. Infected cysts not excluded by CT. Imaged adnexa partly obscured and otherwise unremarkable. No acute osseous abnormality or aggressive osseous destructive changes to support osteomyelitis. Mild lower lumbar facet arthropathy; greater than expected for age. IMPRESSION: 1. Acute diverticulitis including sigmoid colon with multifocal fluid, severe inflammatory stranding, interloop edema of the adjacent bowel loops, and free air concerning for perforation. 2. Appendicolith present without acute appendicitis. 3. Cystic change of the imaged cervix, as can be seen with nabothian cysts and infected cysts. This document has been electronically signed by: Christopher Sauceda MD on 03/20/2025 19:46:16
[2025-03-20 17:45] VITALS: BP 143/96; PULSE 84; RESP 18; TEMP 36.4; O2SAT 99; BMI 40.9
--- NOTE | 2025-03-20 17:45 | ED_ITS ---
HPI - General Adult General Chief complaint: Abdominal Pain Stated complaint: vomiting, abd pain Time Seen by Provider: 03/20/25 18:17 Source: patient Mode of arrival: ambulatory Limitations: no limitations History of Present Illness ED Provider: karen reilly np HPI narrative: Patient is a 29-year-old female who presents emergency department for evaluation. She has a history of diverticulitis with perforation. She states that today she had onset of mid upper/epigastric abdominal pain nausea and 5-6 episodes of bilious vomiting no associated diarrhea. She attempted to take Pepto at home at 12:30 without improvement. She denies any fevers or chills, chest pain or shortness of breath, diarrhea, constipation, hematochezia, melena, dysuria, urinary frequency/urgency/hesitancy, concern for , abnormal pelvic pain, normal vaginal discharge/bleeding. Reports pain feels consistent with prior episodes of diverticulitis Related Data Home Medications ?Medication ?Instructions ?Recorded ?Confirmed No Known Home Meds 03/20/25 03/20/25 Allergies Allergy/AdvReac Type Severity Reaction Status Date / Time No Known Allergies Allergy Verified 03/20/25 17:46 [No Known Allergies*] Review of Systems 2 Review of Systems: Yes all other systems are reviewed and are negative PMFSH Past Medical History Attestation statement: The following information was validated with the patient. Source: old records reviewed Medical History Morbid obesity Diverticulitis Surgical History No pertinent past surgical history Social History Social History Household Members: Other Household Members Other:: Sister. Housing: Apartment Do you presently have visiting nurse or other home services: No Patient Tobacco Use Status: Never used Tobacco Smoked in Last 30 Days: No Use of substances other than those prescribed or required for medical reasons: No Advance Directives: Yes Advance Directives on File: Yes Advance Directives Date on File: 07/30/21 Nutrition Risks: No Nutritional Risk service: No Current occupational status: employed Physical Exam ED Vital Signs: Vital Signs - 24 hr 03/20/25 17:45 03/20/25 19:16 Temperature 97.5 F 98.2 F Pulse Rate 84 62 Respiratory Rate 18 16 Blood Pressure 143/96 H 133/85 Pulse Oximetry 99 100 Oxygen Delivery Method Room Air Room Air BMI result Body Mass Index 40.9 Appearance: Alert.?Oriented to person, place and time. No acute distress.?Normal affect. Eyes: Pupils equal, round and reactive to light.? ENT: Pharynx normal.?? Neck: Normal inspection.? Neck supple.?? CVS: Heart sounds normal. Normal heart rate and rhythm.? Pulses normal.?? Respiratory: No respiratory distress.? Lung sounds clear to auscultation bilaterally?? Abdomen: Soft with tenderness over the epigastrium and left upper quadrant Normoactive bowel sounds. No CVA tenderness Skin: Skin warm and dry.? Normal skin color.? Extremities: No lower extremity edema.? Neuro: Moves all extremities spontaneously. Sensation intact bilaterally. Ambulates with normal steady gait. Course Course Course Narrative: RME, this is a rapid medical exam performed by Gregory Zarco please refer to primary provider for complete H&P- 29 year old female presents for evaluation of abdominal pain and vomiting. She reports a history of diverticulitis. Plan for labs and a UA Reevaluation(s) Reevaluation #1: [facility] called with CT concerning for acute sigmoid diverticulitis severe inflammatory stranding and free air concerning for perforation obtaining lactic acid and blood cultures will cover with Dar, spoke with General surgery Dr. Patel. Time: 19:42 Medications Administered Generic Name Dose Route Start Last Admin Trade Name Freq PRN Reason Stop Dose Admin Dextrose/Lactated Ringer's 1,000 mls @ 125 mls/hr 03/21/25 00:24 03/21/25 01:23 D5lr IVCONT 125 mls/hr .Q8H ARIANNA Administration Piperacillin Sod/Tazobactam 50 mls @ 100 mls/hr 03/21/25 01:00 03/21/25 01:52 Sod 3.375 gm/ Sodium Chloride IV Infused Q6H ARIANNA Infusion Sodium Chloride 3 ml 03/21/25 00:24 03/21/25 01:25 0.9 % Sodium Chloride Flush 3 Ml Syringe IVFLUSH 3 ml QSHIFT ARIANNA Administration Discontinued Medications Generic Name Dose Route Start Last Admin Trade Name Freq PRN Reason Stop Dose Admin Sodium Chloride 1,000 mls @ 999 mls/hr 03/20/25 18:45 03/20/25 20:55 Ns IV 03/20/25 19:45 Infused .Q1H1M ARIANNA Infusion Levofloxacin 750 mg in 150 mls @ 100 mls/hr 03/20/25 19:40 03/20/25 23:57 Levaquin IV 03/20/25 21:09 Infused ONCE ONE Infusion Metronidazole 500 mg in 100 mls @ 100 mls/hr 03/20/25 19:40 03/20/25 22:23 Flagyl IV 03/20/25 20:39 Infused ONCE ONE Infusion Iohexol 100 ml 03/20/25 18:56 03/20/25 18:56 Iohexol 350 Mg/Ml 100 Ml Infus..Btl IV 03/20/25 18:57 85 ml ONCE ONE Administration Morphine Sulfate 2 mg 03/20/25 18:42 03/20/25 19:22 Morphine Sulfate 2 Mg/Ml Cartridge IVPUSH 03/20/25 18:43 2 mg ONCE ONE Administration Protocol Morphine Sulfate 2 mg 03/21/25 00:22 03/21/25 00:32 Morphine Sulfate 2 Mg/Ml Cartridge IVPUSH 03/21/25 00:23 2 mg ONCE ONE Administration Protocol Ondansetron HCl 4 mg 03/20/25 18:42 03/20/25 19:22 Ondansetron Hcl 4 Mg/2 Ml Vial IVPUSH 03/20/25 18:43 4 mg ONCE ONE Administration Ondansetron HCl 4 mg 03/21/25 00:22 03/21/25 00:32 Ondansetron Hcl 4 Mg/2 Ml Vial IVPUSH 03/21/25 00:23 4 mg ONCE ONE Administration Medical Decision Making Medical Decision Making MDM Narrative: Patient is a 29-year-old female with past medical history of diverticulitis with perforation and phlegmonous collection, most recently seen in May of 2024 as well as prior in 2020. Ultimately she was advised outpatient follow-up for General surgery, she saw them in June of 2024 who advised consideration of weight loss secondary to her obesity and that she likely would require resection down the line. She has not seen the weight management clinic although she reports referral was sent. She states that since then she has had a few episodes of occasional abdominal pain that would last a few hours before self- resolving but symptoms today were much worse. She had serum labs obtained prior to my assumption of care revealing leukocytosis of 12,000, no anemia, mild thrombocytosis. No electrolyte derangement. No TRAVON. Minimally elevated AST/ALT at 42/38 in a normal lipase. HCG is negative. Urinalysis is pending. Will obtain CT of the abdomen and pelvis for further evaluation of acute intra- abdominal pathology. Patient will receive 1 L normal saline IV fluid, Zofran IV for nausea, morphine IV for pain. Differential Diagnosis Differential Diagnoses: The differential diagnosis associated with the presentation includes (See course narrative/narrative above) Admission/Observation Consideration of admission/observation: Escalation of care including admission/observation considered Lab Data MDM Lab Attestation statement: I reviewed the patient's lab results. (See narrative above) 03/20/25 17:54 03/20/25 17:54 Labs: Lab Results 03/20/25 Range/Units 17:54 WBC 12.0 H (4.8-10.8) X10*3/uL RBC 4.96 (4.20-5.50) X10*6/uL Hgb 12.9 D (12.0-16.0) g/dl Hct 39.9 (37.0-47.0) % MCV 80.4 (80.0-98.0) fL MCH 26.0 L (27.0-33.0) pg MCHC 32.3 (31.0-35.0) g/dl RDW 13.6 (11.0-16.0) % Plt Count 421 H (160-400) X10*3/uL MPV 9.7 (9.4-12.3) fL Immature Gran % (Auto) 0.3 (0.0-0.4) % Neut % (Auto) 75.2 H (45-73) % Lymph % (Auto) 18.5 L (20-40) % [place] % (Auto) 5.3 (2-11) % Eos % (Auto) 0.4 (0-4) % Baso % (Auto) 0.3 (0-2) % Lymph # (Auto) 2.2 (1.2-4.9) X10*3/uL [place] # (Auto) 0.6 (0.1-1.2) X10*3/uL Eos # (Auto) 0.1 (0.0-0.4) X10*3/uL Baso # (Auto) 0.0 (0.0-0.2) X10*3/uL Abs Immat Gran (auto) 0.04 H (0.00-0.03) X10*3/uL Absolute Neuts (auto) 9.0 H (2.0-8.3) x10*3/uL Absolute Nucleated RBC 0.000 (0.0-0.012) X10*3/uL Nucleated RBC % (auto) 0.0 (0.0-0.2) /100WBC Sodium 142 (135-145) mmol/L Potassium 3.4 (3.3-5.1) mmol/L Chloride 105 (96-108) mmol/L Carbon Dioxide 27 (22-29) mmol/L Anion Gap 13 (12-20) BUN 8 L (9-16) mg/dL Creatinine 0.79 (0.5-1.4) mg/dL Estim Creat Clear Calc 122.7 Estimated GFR > 60 Random Glucose 96 (60-115) mg/dL Calcium 9.3 (8.4-10.2) mg/dL Total Bilirubin 0.2 (0.0-1.0) mg/dL AST 42 H (5-31) U/L ALT 38 H (0-31) U/L Alkaline Phosphatase 85 (39-117) U/L Total Protein 7.9 (6.5-8.0) g/dL Albumin 4.3 (3.5-5.0) g/dL Lipase 23 (8-78) U/L Beta HCG, Quant < 2 mIU/mL Radiology Impression Discussion of test interpretation with radiology: I have reviewed the radiologist's reading. External Record Review External record reviewed: Outpatient record Prescription Management I considered prescription management with: Pain Medication and Antibiotic Critical Care Time Critical Care Time Critical Care Time: Yes Total Critical Care Time: 40 Attestation: Time is exclusive of separately billable procedures. Time includes: direct patient care, patient reassessment, coordination of patient care, interpretation of data (laboratory data, CT abdomen and pelvis, morphine IV and re-evaluation), review of patient's medical records, medical consultation and documentation of patient care. Procedures excluded from critical care time: central intravenous line placement and electrocardiography. Discharge Plan Discharge Clinical Impression: Diverticulitis of large intestine with complication Patient Disposition: Admitted As Inpatient
[2025-03-20 17:58] LABS: MANUAL DIFF FLAG NO
[2025-03-20 18:08] LABS: Basophils Percent Auto 0.3 % (0-2); Eosinophils Absolute Auto 0.1 X10*3/uL (0.0-0.4); Eosinophils Percent Auto 0.4 % (0-4); Hematocrit 39.9 % (37.0-47.0); Hemoglobin 12.9 g/dl (12.0-16.0); Imm Gran Abs Auto 0.04 X10*3/uL (0.00-0.03); Imm Gran Pct Auto 0.3 % (0.0-0.4); Lymphocytes Absolute Auto 2.2 X10*3/uL (1.2-4.9); Lymphocytes Percent Auto 18.5 % (20-40); Mean Corpuscular HGB Conc 32.3 g/dl (31.0-35.0); Mean Corpuscular Volume 80.4 fL (80.0-98.0); Mean Platelet Volume 9.7 fL (9.4-12.3); Monocytes Absolute Auto 0.6 X10*3/uL (0.1-1.2); Monocytes Percent Auto 5.3 % (2-11); Neutrophils Percent Auto 75.2 % (45-73); Platelet Count 421 X10*3/uL (160-400); Red Blood Count 4.96 X10*6/uL (4.20-5.50); Red Cell Distribution Width 13.6 % (11.0-16.0)
[2025-03-20 18:18] LABS: Alanine Aminotransferase 38 U/L (0-31); Albumin Level 4.3 g/dL (3.5-5.0); Alkaline Phosphatase 85 U/L (39-117); Anion Gap 13 (12-20); Aspartate Amino Transferase 42 U/L (5-31); Bilirubin Total 0.2 mg/dL (0.0-1.0); Blood Urea Nitrogen 8 mg/dL (9-16); Calcium 9.3 mg/dL (8.4-10.2); Carbon Dioxide 27 mmol/L (22-29); Chloride 105 mmol/L (96-108); Creatinine Clr Calc Pharmacy 122.7; Estimated Glomerular Filt Rate > 60; Glucose Random 96 mg/dL (60-115); Lipase 23 U/L (8-78); Potassium 3.4 mmol/L (3.3-5.1); Sodium 142 mmol/L (135-145); Total Protein 7.9 g/dL (6.5-8.0)
[2025-03-20 18:19] LABS: HCG Quantitative < 2 mIU/mL
--- NOTE | 2025-03-20 18:32 | PC.NURSE ---
Pt to ED with c/o n&v that started this morning accompanied by 9/10 abd pain. Hx diverticulitis. VSS, labs pending. #20 IV placed to L FA
[2025-03-20] MEDS: iohexoL 350 MG/ML 100 ML INFUS..BTL IV (18:56)
[2025-03-20 19:16] VITALS: BP 133/85; PULSE 62; RESP 16; TEMP 36.8; O2SAT 100
[2025-03-20] MEDS: Morphine Sulfate 2 MG/ML CARTRIDGE IVPUSH (19:22)
[2025-03-20] MEDS: ondansetron HCL 4 MG/2 ML VIAL IVPUSH (19:22)
[2025-03-20] MEDS: 0.9 % Sodium Chloride 1,000 ML 999 ML IV (19:26)
--- NOTE | 2025-03-20 20:09 | P.HPGS_ITS ---
History of Present Illness History of Present Illness Date of Service: 03/20/25 Chief complaint: vomiting, abd pain Narrative: 21-year-old female patient presenting to the emergency department with complaints of abdominal pain in the epigastrium with the associated nausea and vomiting. She reports 2 prior episodes of sigmoid diverticulitis which required hospitalization and IV antibiotics. She feels the symptoms are similar but worse than previous episodes because of the nausea and vomiting. She denied fever or chills and denies changes in her bowels. Admitting laboratories revealed a WBC of 12. CT abdomen and pelvis revealed acute diverticulitis including sigmoid colon with multifocal fluid, severe inflammatory stranding, interloop edema of the adjacent bowel loops, and free air concerning for perforation. She is admitted to the surgical service for further management of this diverticulitis with microperforation. Review of Systems Review of Systems: Yes all other systems are reviewed and are negative [facility] Past Medical History Medical History Morbid obesity Diverticulitis Surgical History Surgical History No pertinent past surgical history Social History Social History Household Members: Other Household Members Other:: Sister. Housing: Apartment Do you presently have visiting nurse or other home services: No Patient Tobacco Use Status: Never used Tobacco Smoked in Last 30 Days: No Use of substances other than those prescribed or required for medical reasons: No Advance Directives: Yes Advance Directives on File: Yes Advance Directives Date on File: 07/30/21 service: No Current occupational status: employed Meds Allergies Allergy/AdvReac Type Severity Reaction Status Date / Time No Known Allergies Allergy Verified 03/20/25 17:46 [No Known Allergies*] Active Medications: Current Medications Levofloxacin (Levaquin) 750 mg in 150 mls @ 100 mls/hr IV ONCE ONE Stop: 03/20/25 21:09 Metronidazole (Flagyl) 500 mg in 100 mls @ 100 mls/hr IV ONCE ONE Stop: 03/20/25 20:39 Physical Exam Vital Signs: Vital Signs: Last Vital Signs Temp 98.2 F 03/20/25 19:16 Pulse 62 03/20/25 19:16 Resp 16 03/20/25 19:16 BP 133/85 03/20/25 19:16 Pulse Ox 100 03/20/25 19:16 O2 Del Method Room Air 03/20/25 19:16 BMI result Body Mass Index 40.9 Const: General: cooperative and no acute distress Nutritional Appearance: well nourished Orientation/consciousness: patient oriented x3 Limitations: no limitations HEENT: Head: Yes normocephalic and Yes atraumatic Ears: hearing grossly normal bilaterally Resp: Effort & Inspection: normal respiratory effort, no audible wheezes, no cough and no respiratory distress Cardio: Jugular venous distension: no JVD GI: Inspection: Yes normal to inspection Palpation (GI): Soft to palpation, Tenderness to palpation present (GI) in the epigastrum, in the LLQ and in the LUQ, no guarding and not rigid Skin: Other: Warm, dry, no rash Neuro: General: patient oriented x3 Extrem: General: Yes no clubbing, cyanosis or edema Results Results Labs: Short CBC 03/20/25 Range/Units 17:54 WBC 12.0 H (4.8-10.8) X10*3/uL Hgb 12.9 D (12.0-16.0) g/dl Hct 39.9 (37.0-47.0) % Plt Count 421 H (160-400) X10*3/uL BMP 03/20/25 17:54 Sodium 142 Potassium 3.4 Chloride 105 Carbon Dioxide 27 BUN 8 L Creatinine 0.79 Calcium 9.3 Liver Function 03/20/25 Range/Units 17:54 Total Bilirubin 0.2 (0.0-1.0) mg/dL AST 42 H (5-31) U/L ALT 38 H (0-31) U/L Alkaline Phosphatase 85 (39-117) U/L Albumin 4.3 (3.5-5.0) g/dL Assessment and Plan (1) Diverticulitis of large intestine with complication: Status: Acute Plan 21-year-old female returning with a recurrent episode of diverticulitis with microperforation. I reviewed the CT findings with the patient and discuss treatment options. I recommended a trial of IV antibiotics to cool the diverticulitis. I see no abscess collection which is amenable to IR drainage. Once her symptoms resolve, she may require an elective sigmoid colectomy to prevent further episodes of diverticulitis. On the other hand if her symptoms do not improve, she may possibly require Natalya procedure. We will start on Zosyn and keep NPO for tonight. We will recheck laboratories in a.m.. Quality Stroke Does the patient have a stroke diagnosis?: No VTE Prior VTE?: No VTE Risk Level:: Surgical - low VTE Device Contraindication: N/A - Device Ordered VTE Drug Contraindication: Treatment Not Indicated Procedures Date of Service Date of Service: 03/20/25
--- NOTE | 2025-03-20 20:43 | PHA.MEDREC ---
Pharmacy Consult ? Medication Reconciliation Pharmacy has completed the medication reconciliation. Per patient, she does not take any medications/otc at home.
[2025-03-20 21:02] LABS: Lactic Acid 1.2 mmol/L (0.5-2.0)
[2025-03-20] MEDS: metroNIDAZOLE/NS 500 MG/100 ML PIGGYBACK 100 MG IV (21:25)
[2025-03-20 22:14] VITALS: BP 130/86; PULSE 85; RESP 18; TEMP 36.9; O2SAT 98
[2025-03-20] MEDS: levoFLOXacin/D5W 750 MG/150 ML PIGGYBACK 100 MG IV (22:22)
[2025-03-20 22:55] LABS: Appearance Urine Cloudy; Color Urine Yellow; Glucose Urine UA Negative (Negative); Leukocyte Esterase Urine Moderate (2+) (Negative); Nitrite Urine Positive (Negative); PH 6.5 (5.0-9.0); Specific Gravity - Urine >= 1.030 (1.005-1.025); UMIC TRIGGER UACC YES; Urine Blood Moderate (2+) (Negative); Urine Ketones 40 mg/dL (Negative); Urine Protein Trace mg/dL (Neg-Trace)
[2025-03-20 23:13] LABS: Bacteria Urine 4+ (None Seen); Hyaline Casts Urine 0-2 /LPF (0-2); Squamous Epithelial Cell Urine 0-2 /HPF (0-2); UACC Culture Trigger YES; WBC Urine >50 /HPF (0-5)
[2025-03-20 23:56] VITALS: BP 135/91; PULSE 77; RESP 18; TEMP 36.8; O2SAT 100
[2025-03-21] VITALS (7 sets, daily range): BP systolic 113–135; BP diastolic 64–91; PULSE 67–89; RESP 14–18; TEMP 36.4–36.8; O2SAT 95–100; BMI 41.2
[2025-03-21] MEDS: ondansetron HCL 4 MG/2 ML VIAL IVPUSH (00:32)
[2025-03-21] MEDS: Morphine Sulfate 2 MG/ML CARTRIDGE IVPUSH (00:32)
[2025-03-21] MEDS: Piperacillin Sodium/Tazobactam 3.375 GM in 0.9 % Sodium Chloride 50 ML IV ×5 (01:22→23:25)
[2025-03-21] MEDS: Dextrose 5 % and Lactated Ring 1,000 ML 125 ML IVCONT ×3 (01:23→17:44)
[2025-03-21] MEDS: 0.9 % Sodium Chloride Flush 3 ML SYRINGE IVFLUSH (01:25)
--- NOTE | 2025-03-21 06:20 | PC.NURSE ---
pt resting comfortably throughout the night, no apparent distress, call mayito w/in reach
[2025-03-21 07:03] LABS: MANUAL DIFF FLAG NO
[2025-03-21 07:17] LABS: Basophils Percent Auto 0.3 % (0-2); Eosinophils Absolute Auto 0.1 X10*3/uL (0.0-0.4); Eosinophils Percent Auto 0.7 % (0-4); Hematocrit 35.3 % (37.0-47.0); Hemoglobin 11.4 g/dl (12.0-16.0); Imm Gran Abs Auto 0.05 X10*3/uL (0.00-0.03); Imm Gran Pct Auto 0.6 % (0.0-0.4); Lymphocytes Absolute Auto 2.7 X10*3/uL (1.2-4.9); Lymphocytes Percent Auto 31.4 % (20-40); Mean Corpuscular HGB Conc 32.3 g/dl (31.0-35.0); Mean Corpuscular Hemoglobin 25.9 pg (27.0-33.0); Mean Corpuscular Volume 80.2 fL (80.0-98.0); Mean Platelet Volume 10.1 fL (9.4-12.3); Monocytes Absolute Auto 0.7 X10*3/uL (0.1-1.2); Monocytes Percent Auto 7.6 % (2-11); Neutrophils Absolute Auto 5.1 x10*3/uL (2.0-8.3); Neutrophils Percent Auto 59.4 % (45-73); Platelet Count 356 X10*3/uL (160-400); Red Cell Distribution Width 13.8 % (11.0-16.0); White Blood Count 8.6 X10*3/uL (4.8-10.8)
[2025-03-21 07:28] LABS: Alanine Aminotransferase 25 U/L (0-31); Albumin Level 3.5 g/dL (3.5-5.0); Alkaline Phosphatase 70 U/L (39-117); Anion Gap 9 (12-20); Aspartate Amino Transferase 31 U/L (5-31); Bilirubin Total 0.2 mg/dL (0.0-1.0); Blood Urea Nitrogen 5 mg/dL (9-16); Calcium 8.5 mg/dL (8.4-10.2); Carbon Dioxide 27 mmol/L (22-29); Chloride 107 mmol/L (96-108); Creatinine Clr Calc Pharmacy 134.6; Estimated Glomerular Filt Rate > 60; Glucose Random 102 mg/dL (60-115); Potassium 3.2 mmol/L (3.3-5.1); Sodium 140 mmol/L (135-145); Total Protein 6.4 g/dL (6.5-8.0)
--- NOTE | 2025-03-21 11:07 | P.PNGS_ITS ---
Subjective Subjective Date of Service: 03/21/25 Interval history: Patient doing well, pain is improving. Denies nausea, vomiting. Endorses passing of flatus. Denies fever/chills. Physical Exam 2 Vital Signs: Vital Signs: Last Vital Signs Temp 97.6 F 03/21/25 05:39 Pulse 67 03/21/25 05:39 Resp 14 03/21/25 05:39 BP 114/75 03/21/25 05:39 Pulse Ox 95 03/21/25 05:39 O2 Del Method Room Air 03/21/25 05:39 BMI result Body Mass Index 40.9 Const: General: comfortable and no acute distress O rientation/consciousness: patient oriented x3 Resp: Effort & Inspection: normal respiratory effort and able to speak in complete sentences GI: Inspection: No distended Palpation (GI): Soft to palpation, Tenderness to palpation present (GI) periumbilically (mild), no guarding and not rigid Neuro: General: patient oriented x3 Objective Data Active Medications Hydromorphone HCl (Hydromorphone Hcl 0.5 Mg/0.5 Ml Syringe) 0.5 mg IVPUSH Q3H PRN; Protocol PRN Reason: Pain, Severe (Pain Scale 7-10) Acetaminophen (Ofirmev) 1,000 mg in 100 mls @ 400 mls/hr IV Q6H PRN PRN Reason: Pain, Mild (Pain Scale 1-3) Dextrose/Lactated Ringer's (D5lr) 1,000 mls @ 125 mls/hr IVCONT .Q8H [facility] Last Admin: 03/21/25 09:06 Dose: 125 mls/hr Documented By: YECENIA Piperacillin Sod/Tazobactam (Sod 3.375 gm/ Sodium Chloride) 50 mls @ 100 mls/hr IV Q6H [facility] Last Infusion: 03/21/25 08:05 Dose: Infused Documented By: YECENIA Ondansetron HCl (Ondansetron Hcl 4 Mg/2 Ml Vial) 4 mg IVPUSH QID PRN PRN Reason: Nausea Sodium Chloride (0.9 % Sodium Chloride Flush 3 Ml Syringe) 3 ml IVFLUSH QSHIFT [facility] Last Admin: 03/21/25 07:28 Dose: Not Given Documented By: YECNEIA Non-Admin Reason: IV Running Zolpidem Tartrate (Zolpidem Tartrate 5 Mg Tablet) 5 mg PO BEDTIME PRN PRN Reason: Insomnia Labs 03/21/25 06:25 03/21/25 06:25 Labs: Laboratory Results - last 24 hr 03/20/25 03/20/25 03/20/25 17:54 20:37 22:49 MCV 80.4 MCH 26.0 L MCHC 32.3 RDW 13.6 Plt Count 421 H MPV 9.7 Immature Gran % (Auto) 0.3 Neut % (Auto) 75.2 H Lymph % (Auto) 18.5 L [place] % (Auto) 5.3 Eos % (Auto) 0.4 Baso % (Auto) 0.3 Lymph # (Auto) 2.2 [place] # (Auto) 0.6 Eos # (Auto) 0.1 Baso # (Auto) 0.0 Abs Immat Gran (auto) 0.04 H Absolute Neuts (auto) 9.0 H Absolute Nucleated RBC 0.000 Nucleated RBC % (auto) 0.0 Anion Gap 13 Estim Creat Clear Calc 122.7 Estimated GFR > 60 Random Glucose 96 Lactic Acid 1.2 Calcium 9.3 Total Bilirubin 0.2 AST 42 H ALT 38 H Alkaline Phosphatase 85 Total Protein 7.9 Albumin 4.3 Lipase 23 Beta HCG, Quant < 2 Urine Color Yellow Urine Appearance Cloudy Urine pH 6.5 Ur Specific [place] >= 1.030 H Urine Protein Trace Urine Glucose (UA) Negative Urine Ketones 40 Urine Blood Moderate (2+) H Urine Nitrite Positive H Ur Leukocyte Esterase Moderate (2+) H Urine RBC 11-20 H Urine WBC >50 H Ur Squamous Epith Cells 0-2 Urine Bacteria 4+ Hyaline Casts 0-2 03/21/25 06:25 MCV 80.2 MCH 25.9 L MCHC 32.3 RDW 13.8 Plt Count 356 MPV 10.1 Immature Gran % (Auto) 0.6 H Neut % (Auto) 59.4 Lymph % (Auto) 31.4 [place] % (Auto) 7.6 Eos % (Auto) 0.7 Baso % (Auto) 0.3 Lymph # (Auto) 2.7 [place] # (Auto) 0.7 Eos # (Auto) 0.1 Baso # (Auto) 0.0 Abs Immat Gran (auto) 0.05 H Absolute Neuts (auto) 5.1 Absolute Nucleated RBC 0.000 Nucleated RBC % (auto) 0.0 Anion Gap 9 L Estim Creat Clear Calc 134.6 Estimated GFR > 60 Random Glucose 102 Lactic Acid Calcium 8.5 D Total Bilirubin 0.2 AST 31 ALT 25 Alkaline Phosphatase 70 Total Protein 6.4 L Albumin 3.5 Lipase Beta HCG, Quant Urine Color Urine Appearance Urine pH Ur Specific [place] Urine Protein Urine Glucose (UA) Urine Ketones Urine Blood Urine Nitrite Ur Leukocyte Esterase Urine RBC Urine WBC Ur Squamous Epith Cells Urine Bacteria Hyaline Casts Procedures Date of Service Date of Service: 03/21/25 Progress Note: A&P Assessment and plan (1) Diverticulitis: Status: Acute Plan 29 year old female with a recurrent episode of diverticulitis with microperforation. Currently trialling conservative management with bowel rest and IV zosyn. patient is improving today. Pain is reduced at rest, continues to have some periumbilical pain to palpation. Denies fever, chills. Patient is afebrile. AM labs show improvement in leukocytosis, WBC now 8.6. Patients adomenc remains soft and relatively benign. We discussed future intervention for colon resection after this acute phase due to frequent recurrence of diverticulitis. Continue IV zosyn, will trial clear liquids Continue pain management as needed ambulation as tolerated Time Spent With Patient Time: Total time managing care of this patient today ____ minutes. Quality Stroke Does the patient have a stroke diagnosis?: No VTE Prior VTE?: No VTE Risk Level:: Surgical - low VTE Device Contraindication: N/A - Device Ordered VTE Drug Contraindication: Treatment Not Indicated
--- NOTE | 2025-03-21 11:44 | MHC.CM.PN ---
pt lives with her parents ,is working and indepedent pt will not need services when dcd
[2025-03-22] MEDS: Dextrose 5 % and Lactated Ring 1,000 ML 125 ML IVCONT ×2 (02:42→11:33)
[2025-03-22 03:04] VITALS: BP 125/73; PULSE 74; RESP 18; TEMP 36.3; O2SAT 96
[2025-03-22 07:18] VITALS: BP 125/77; PULSE 65; RESP 14; TEMP 36.7; O2SAT 96
[2025-03-22] MEDS: Piperacillin Sodium/Tazobactam 3.375 GM in 0.9 % Sodium Chloride 50 ML IV ×4 (09:00→23:04)
[2025-03-22] MEDS: 0.9 % Sodium Chloride Flush 3 ML SYRINGE IVFLUSH ×2 (09:08→23:04)
[2025-03-22 14:00] VITALS: BP 120/83; PULSE 66; RESP 18; TEMP 36.6; O2SAT 99
--- NOTE | 2025-03-22 14:36 | P.PNGS_ITS ---
Subjective Subjective Date of Service: 03/22/25 Interval history: feeling well less pain passing gas no issues Physical Exam 2 Vital Signs: Vital Signs: Last Vital Signs Temp 98.0 F 03/22/25 07:18 Pulse 65 03/22/25 07:18 Resp 14 03/22/25 07:18 BP 125/77 03/22/25 07:18 Pulse Ox 96 03/22/25 07:18 O2 Del Method Room Air 03/22/25 07:18 BMI result Body Mass Index 41.2 Const: General: cooperative, healthy appearing, comfortable and no acute distress Resp: Effort & Inspection: normal respiratory effort Auscultation: clear to auscultation bilaterally Cardio: Rate: regular rate Rhythm: regular rhythm GI: Other: abdomen is soft nontender Psych: Appearance: grossly normal Mental Status: mental status grossly normal Speech and movement: Normal speech and movement present Affect: n ormal affect Thought process: Normal thought process present Thought content: Normal thought content present Insight: Good insight present (Psych) Judgement: Good judgement present (Psych) Objective Data Active Medications Hydromorphone HCl (Hydromorphone Hcl 0.5 Mg/0.5 Ml Syringe) 0.5 mg IVPUSH Q3H PRN; Protocol PRN Reason: Pain, Severe (Pain Scale 7-10) Acetaminophen (Ofirmev) 1,000 mg in 100 mls @ 400 mls/hr IV Q6H PRN PRN Reason: Pain, Mild (Pain Scale 1-3) Dextrose/Lactated Ringer's (D5lr) 1,000 mls @ 125 mls/hr IVCONT .Q8H [facility] Last Admin: 03/22/25 11:33 Dose: 125 mls/hr Documented By: ISAEL Piperacillin Sod/Tazobactam (Sod 3.375 gm/ Sodium Chloride) 50 mls @ 100 mls/hr IV Q6H [facility] Last Admin: 03/22/25 14:18 Dose: 100 mls/hr Documented By: ISAEL Ondansetron HCl (Ondansetron Hcl 4 Mg/2 Ml Vial) 4 mg IVPUSH QID PRN PRN Reason: Nausea Sodium Chloride (0.9 % Sodium Chloride Flush 3 Ml Syringe) 3 ml IVFLUSH QSHIFT [facility] Last Admin: 03/22/25 09:08 Dose: 3 ml Documented By: ISAEL Zolpidem Tartrate (Zolpidem Tartrate 5 Mg Tablet) 5 mg PO BEDTIME PRN PRN Reason: Insomnia Labs 03/21/25 06:25 03/21/25 06:25 Microbiology Microbiology Results: Microbiology 03/20/25 Unknown Urine Culture - Final Urine clean catch - Clean Catch Midstream 03/20/25 20:47 Blood Culture - Preliminary Blood - Venous No growth after 24 hours. 03/20/25 20:37 Blood Culture - Preliminary Blood - Venous No growth after 24 hours. Procedures Date of Service Date of Service: 03/22/25 Progress Note: A&P Assessment and plan (1) Diverticulitis: Status: Acute Assessment and Plan: Pt is HD#3 with localized diverticulitis with small area of perf - sig inflammaotry changes in sig colon and small bowel -? intraop fluid collections - pt doing well with wbc good and less tender and no fevers. Will advance to bland diet and cont with iv antibiotics. if tolerates well will consider dc home tomorrow with po antibiotics and bland low residue diet. 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 goal to get better dc to home conside outpt colonoscopy and then elective sigmoid resection. Time Spent With Patient Time: Total time managing care of this patient today ____ minutes. Quality Stroke Does the patient have a stroke diagnosis?: No VTE Prior VTE?: No VTE Risk Level:: Surgical - low VTE Device Contraindication: N/A - Device Ordered VTE Drug Contraindication: Treatment Not Indicated
[2025-03-22 20:01] VITALS: BP 110/67; PULSE 75; RESP 18; TEMP 37.1; O2SAT 100
[2025-03-23 03:30] VITALS: BP 117/68; PULSE 56; RESP 16; TEMP 36.4; O2SAT 96
[2025-03-23 06:34] LABS: MANUAL DIFF FLAG NO
[2025-03-23 07:05] LABS: Basophils Percent Auto 0.5 % (0-2); Eosinophils Absolute Auto 0.2 X10*3/uL (0.0-0.4); Eosinophils Percent Auto 2.9 % (0-4); Hematocrit 36.6 % (37.0-47.0); Hemoglobin 11.6 g/dl (12.0-16.0); Imm Gran Abs Auto 0.01 X10*3/uL (0.00-0.03); Imm Gran Pct Auto 0.2 % (0.0-0.4); Lymphocytes Absolute Auto 2.9 X10*3/uL (1.2-4.9); Lymphocytes Percent Auto 48.7 % (20-40); Mean Corpuscular HGB Conc 31.7 g/dl (31.0-35.0); Mean Corpuscular Hemoglobin 25.8 pg (27.0-33.0); Mean Corpuscular Volume 81.3 fL (80.0-98.0); Mean Platelet Volume 10.5 fL (9.4-12.3); Monocytes Absolute Auto 0.4 X10*3/uL (0.1-1.2); Monocytes Percent Auto 6.6 % (2-11); Neutrophils Absolute Auto 2.4 x10*3/uL (2.0-8.3); Neutrophils Percent Auto 41.1 % (45-73); Platelet Count 363 X10*3/uL (160-400); Red Cell Distribution Width 13.5 % (11.0-16.0); White Blood Count 5.9 X10*3/uL (4.8-10.8)
[2025-03-23] MEDS: Piperacillin Sodium/Tazobactam 3.375 GM in 0.9 % Sodium Chloride 50 ML IV ×2 (07:22→13:51)
[2025-03-23] MEDS: 0.9 % Sodium Chloride Flush 3 ML SYRINGE IVFLUSH (07:29)
[2025-03-23 08:00] VITALS: BP 114/75; PULSE 66; RESP 16; TEMP 36.4; O2SAT 95
[2025-03-23 14:00] VITALS: BP 121/74; PULSE 79; RESP 16; TEMP 36.2; O2SAT 96
--- NOTE | 2025-03-23 14:50 | PM.DS ---
DS: Providers Provider Date of Service: 03/23/25 Date of admission: 03/20/25 20:08 Date of discharge: 03/23/25 Primary care physician: [facility] Admitting clinician: Geronimo Reynoso Attending physician on discharge: Nata Humphrey DS: Diagnosis Discharge Diagnosis (1) Diverticulitis: Start date: 03/19/25 Status: Acute DS: Summary Hospital Course Hospital Course: Patient is a 29-year-old female who has had a history of diverticulitis episodes in the past and comes in now with a another episode with CT scan showing changes of maybe a microperforation. Patient did well with bowel rest IV antibiotics and then tolerated advancing of diet. Our plan is to discharge her home with another 7 days of ciprofloxacin and Flagyl and she should really consider having an elective resection of the colon which keeps having these diverticulitis flares. She understands and agrees with the plan. Status at Discharge Functional status at discharge: independent ambulation Overall status at discharge: patient is progressing back to baseline Time Attestation Total time managing care of this patient today: 30 mintues. Discharge Coordination Time (in mins): 30 Quality: Safe Use of Opioids Does Pt have an Active Cancer Diagnosis on the Problem List?: No Quality: Stroke Does the patient have a stroke diagnosis?: No Physical Exam Vital Signs: Vital Signs: Last Vital Signs Temp 97.1 F 03/23/25 14:00 Pulse 79 03/23/25 14:00 Resp 16 03/23/25 14:00 BP 121/74 03/23/25 14:00 Pulse Ox 96 03/23/25 14:00 O2 Del Method Room Air 03/23/25 14:00 BMI result Body Mass Index 41.2 Const: General: cooperative, healthy appearing, comfortable and no acute distress GI: Other: Abdomen soft nondistended nontender DS: Data Data Completed and Pending Labs on day of discharge: Laboratory Results - last 24 hr 03/23/25 05:54 WBC 5.9 RBC 4.50 Hgb 11.6 L Hct 36.6 L MCV 81.3 MCH 25.8 L MCHC 31.7 RDW 13.5 Plt Count 363 MPV 10.5 Immature Gran % (Auto) 0.2 Neut % (Auto) 41.1 L Lymph % (Auto) 48.7 H [place] % (Auto) 6.6 Eos % (Auto) 2.9 Baso % (Auto) 0.5 Lymph # (Auto) 2.9 [place] # (Auto) 0.4 Eos # (Auto) 0.2 Baso # (Auto) 0.0 Abs Immat Gran (auto) 0.01 Absolute Neuts (auto) 2.4 Absolute Nucleated RBC 0.000 Nucleated RBC % (auto) 0.0 Hold Purple Top Cancelled Preliminary micro results at discharge 03/20/25 20:47 Blood Culture - Preliminary Blood - Venous No growth after 48 hours. 03/20/25 20:37 Blood Culture - Preliminary Blood - Venous No growth after 48 hours. Discharge Plan Discharge Anticipated Discharge Date/Time: 03/23/25 14:45 Patient Disposition: Home, Self-Care Discharge Diagnosis: diverticulitis [facility] Week Discharge Medications: New ciprofloxacin HCl [Cipro] 500 mg tablet 500 mg PO BID Qty: 14 0RF metronidazole 500 mg tablet 500 mg PO Q8H Qty: 21 0RF Discharge Orders: Discharge Order (Routine); Ordered 03/23/25 Ordered By: Nata Humphrey Diet: low residue Activity on Discharge: As tolerated Stand Alone Forms: Patient Portal Discharge page Print Language: Azeri Care Plan Goals: to feel better , improve infection Health Concerns: worsening abdominal pain or fever and chills vomiting call MD Plan of Treatment: finish antibiotics and follow up in a week in the surgical office Assessment: Doing well after 4 day course of hakeem rest and iv antibiotics
--- NOTE | 2025-03-23 15:59 | MHC.CM.PN ---
PT TO DC HOME TODAY WITH NO SERVICES VIA PRIVATE TRANSPORT
== END 2025-03-23 16:19 | disposition home or self-care (01) | DRG 392 ==
LOC: HO.ED 19:50 → HO.EDOVER 21:03 → HO.S3 03-21 11:56
PROVIDERS: Nurse Practitioner Family; Physician Assistant; Surgery; Admitting Provider Surgery; Emergency Provider Emergency Medicine; Visit Provider Surgery
DX: K57.20 Diverticulitis of large intestine with perforation and abscess without bleeding (principal)
CPT/HCPCS: 36415; 74177; 80053; 81001; 83605; 83690; 84702; 85025; 87040; 87086; 99285; J1836; J1956; J2270; J2405; J2543; Q9967

== ENCOUNTER → 2025-03-20 18:35 | Outpatient (BNV) | payer OTHER, SELFPAY | PROVIDERS: Emergency Provider Emergency Medicine; Visit Provider Surgery | DX: K57.92 Diverticulitis of intestine, part unspecified, without perforation or abscess without bleeding (principal) | CPT/HCPCS: 99222; 99232; 99238 ==

== ENCOUNTER → 2025-03-20 18:42 | Outpatient (BNV) | payer OTHER, SELFPAY | PROVIDERS: Emergency Provider Emergency Medicine; Visit Provider Radiology Neuroradiology | DX: K57.92 Diverticulitis of intestine, part unspecified, without perforation or abscess without bleeding (principal); K38.8 Other specified diseases of appendix | CPT/HCPCS: 74177 ==